=== PATIENT | female | born 1955 | race Caucasian/White ===

== ENCOUNTER 2021-01-29 15:51 | Emergency (ER) | payer MEDICARE, SELFPAY ==
--- NOTE | 2021-01-29 15:54 | ED.DIZZY ---
HPI - Dizziness General Chief Complaint: Dizziness Stated Complaint: Dizziness Time Seen by Provider: 01/29/21 15:54 Related Data Allergies Allergy/AdvReac Type Severity Reaction Status Date / Time ciprofloxacin Allergy Unknown Nausea Verified 01/21/15 17:20 metronidazole Allergy Unknown Nausea Verified 01/21/15 17:20
--- NOTE | 2021-01-29 17:18 | PC.NURSE ---
1600 left immediately following registration without being seen by nurse/provider. nurse did not observe pt.
== END 2021-01-29 16:00 | disposition left against medical advice (07) ==
LOC: EXPBETH 16:02
PROVIDERS: Emergency Provider Nurse Practitioner Family; PCP Internal Medicine
DX: Z53.21 Procedure and treatment not carried out due to patient leaving prior to being seen by health care provider (principal)
CPT/HCPCS: 99199

== ENCOUNTER 2024-04-25 09:12 | Emergency (ER) | payer MEDICARE, MEDICAID, SELFPAY ==
--- NOTE | ~2024-04-25 | XR_ITS ---
EXAMINATION: XR chest 2V DATE: 04/25/2024 10:22 INDICATION: Cough TECHNIQUE: frontal and lateral views of the chest were obtained. COMPARISON: None FINDINGS: Mild linear discoid atelectasis at the medial left lung base and lateral left lower lung zone. Additi onal mild streaky opacities also favoring atelectasis over pneumonia at the lateral right lung base. No pleural effusion or pneumothorax. The cardiomediastinal silhouette is normal. Likely chronic mild anterior wedging at T11. Mild thoracolumbar dextrocurvature with moderate to severe spondylosis. IMPRESSION: 1. Mild linear and streaky opacities at the bilateral lower lungs and favor atelectasis over pneumoni a. Reviewed, dictated and finalized at location A. MATIC EMBROIDERY MACHINE TENDER IMPRESSION: 1. Mild linear and streaky opacities at the bilateral lower lungs and favor ate lectasis over pneumonia.
[2024-04-25 09:23] VITALS: BP 146/86; PULSE 71; RESP 18; TEMP 36.6; O2SAT 99
--- NOTE | 2024-04-25 10:09 | ED.GENADULT ---
HPI - General Adult General Chief complaint: Upper Respiratory Infection Stated complaint: Congestion/Chest Congestion/Cough Source: patient Mode of arrival: ambulatory Limitations: no limitations History of Present Illness HPI narrative: Patient presents for evaluation of sick symptoms for last 2 days. Symptoms include sinus congestion, productive cough of yellow/green sputum, shortness of breath, chills and diarrhea. No fever, vomiting, chest pain, sore throat, or otalgia. No recent sick contacts to her knowledge. She smokes 3/4 ppd. She has been taking Coricidin and Flonase for her symptoms. Related Data Home Medications Medication Instructions Recorded Confirmed atorvastatin 40 mg tablet 40 mg PO DAILY 04/25/24 04/25/24 clonidine HCl 0.1 mg tablet 0.1 mg PO DAILY 04/25/24 04/25/24 escitalopram oxalate 10 mg tablet 10 mg PO DAILY 04/25/24 04/25/24 levothyroxine 125 mcg tablet 125 mcg PO DAILY 04/25/24 04/25/24 lisinopril 20 mg tablet 20 mg PO DAILY 04/25/24 04/25/24 verapamil 120 mg tablet 120 mg PO DAILY 04/25/24 04/25/24 Allergies Allergy/AdvReac Type Severity Reaction Status Date / Time ciprofloxacin Allergy Unknown Nausea Verified 04/25/24 10:04 metronidazole Allergy Unknown Nausea Verified 04/25/24 10:04 Review of Systems Review of Systems: CONSTITUTIONAL: Reports chills. Denies fever EYES: Denies visual changes, redness, or discharge. ENT: Reports sinus congestion clear rhinorrhea. Denies sore throat. CARDIOVASCULAR: Denies chest pain, palpitations, or edema. RESPIRATORY: Reports cough and shortness of breath. GASTROINTESTINAL: Reports diarrhea. Denies abdominal pain, nausea, or vomiting GENITOURINARY: Denies dysuria or hematuria. SKIN: Denies rash or itching. MUSCULOSKELETAL: Denies back pain, joint pain, or myalgia. NEUROLOGIC: Denies headache, numbness, dizziness, or weakness. PSYCHIATRIC: Denies anxiety or depression. [facility] Past Medical History Medical History Anxiety Hyperlipidemia Hypertension Surgical History Surgical History No pertinent past surgical history Family History Family History Mother Family history unknown Social History Social History Smoking packs per day: 0.75 Smoking cigarettes per day: 15.0 Smoking status: Current every day smoker Tobacco type: cigarettes Substance use: never Living arrangements: alone Gender identity (if verbalized by the patient): Female Spiritual care concerns: No Exam Narrative: GENERAL: Well-appearing, well-nourished, and in no acute distress. HEAD: Normocephalic, atraumatic. EYES: PERRLA and EOMI. ENT: Nares clear, no rhinorrhea or epistaxis. Mucous membranes moist. Oropharynx without tonsillar hypertrophy exudate or other lesions. Bilateral TMs pearly olivares nonbulging NECK: Supple. No adenopathy or masses. No carotid bruits or JVD CHEST: Rales and wheezing present on exam. Cough present. Breathing pattern is nonlabored. HEART: Regular rate and rhythm. No murmur heard. Normal peripheral pulses. ABDOMEN: Soft, nontender, nondistended, normal active bowel sounds. EXTREMITIES: Normal range of motion. No edema. SKIN: Warm, dry, no rash. NEURO: No focal deficits. Alert and oriented x3. PSYCH: Normal mood and affect. Course Course Emergency Course: This is a 69 year old female who presented for evaluation of respiratory symptoms. Chest x-ray concerning for pneumonia. She is a current every day smoker. Will discharge with azithromycin, Augmentin, prednisone and albuterol. Dextromethorphan should help with cough. Follow-up with primary provider. Advised on smoking cessation. Go to the ER for worsening symptoms. Patient in agreement with plan of care. Level of Care: Express Care Visit Vital Signs Vital signs: Vital Signs Temperature 36.6 C 04/25/24 09:23 Pulse Rate 71 04/25/24 09:23 Respiratory Rate 18 04/25/24 09:23 Blood Pressure 146/86 H 04/25/24 09:23 Pulse Oximetry 99 04/25/24 09:23 Oxygen Delivery Room Air 04/25/24 09:23 Temperature 36.6 C 04/25/24 09:23 Pulse Rate 71 04/25/24 09:23 Respiratory Rate 18 04/25/24 09:23 Blood Pressure 146/86 H 04/25/24 09:23 Pulse Oximetry 99 04/25/24 09:23 Oxygen Delivery Room Air 04/25/24 09:23 Medical Decision Making Vital Signs Vital Signs: Vital Signs Temperature 36.6 C 04/25/24 09:23 Pulse Rate 71 04/25/24 09:23 Respiratory Rate 18 04/25/24 09:23 Blood Pressure 146/86 H 04/25/24 09:23 Pulse Oximetry 99 04/25/24 09:23 Oxygen Delivery Room Air 04/25/24 09:23 Temperature 36.6 C 04/25/24 09:23 Pulse Rate 71 04/25/24 09:23 Respiratory Rate 18 04/25/24 09:23 Blood Pressure 146/86 H 04/25/24 09:23 Pulse Oximetry 99 04/25/24 09:23 Oxygen Delivery Room Air 04/25/24 09:23 Lab Data Labs: Lab Results 04/25/24 Range/Units 10:26 POC Influenza A Ag Negative (Negative) POC Influenza B Ag Negative (Negative) POC SARS CoV-2 Ag Negative (Negative) Imaging Data Radiologist's impression: EXAMINATION: XR chest 2V DATE: 04/25/2024 10:22 INDICATION: Cough TECHNIQUE: frontal and lateral views of the chest were obtained. COMPARISON: None FINDINGS: Mild linear discoid atelectasis at the medial left lung base and lateral left lower lung zone. Additional mild streaky opacities also favoring atelectasis over pneumonia at the lateral right lung base. No pleural effusion or pneumothorax. The cardiomediastinal silhouette is normal. Likely chronic mild anterior wedging at T11. Mild thoracolumbar dextrocurvature with moderate to severe spondylosis. IMPRESSION: 1. Mild linear and streaky opacities at the bilateral lower lungs and favor atelectasis over pneumonia. Discharge Plan Discharge Clinical Impression: Community acquired pneumonia Patient Disposition: Home, Self-Care Condition: Stable Instructions: Antibiotic Form, Community Acquired Pneumonia (ED) Additional Instructions: MAKE SURE TO STAY WELL HYDRATE DEXTROMETHORPHAN(DELSYM) SHOULD HELP WITH COUGH PLEASE DO NOT SMOKE IF YOU HAVE PERSISTENT OR WORSENING SYMPTOMS, PLEASE GO TO THE ER Patient Language: Estonian Prescriptions: New amoxicillin-pot clavulanate 875-125 mg tablet 1 tablet PO Q12H Qty: 20 0RF azithromycin 250 mg tablet See Rx Instructions .ROUTE .COMPLEX Qty: 6 0RF Rx Instructions: For 250 mg dose pack: take 500 mg today (day 1), then 250 mg for 4 days (days 2-5) prednisone 50 mg tablet 50 mg PO DAILY Qty: 5 0RF albuterol sulfate 90 mcg/actuation HFA aerosol inhaler 2 puff inhalation QID PRN (Reason: shortness of breath or wheezing) Qty: 8.5 0RF No Action levothyroxine 125 mcg tablet 125 mcg PO DAILY verapamil 120 mg tablet 120 mg PO DAILY atorvastatin 40 mg tablet 40 mg PO DAILY clonidine HCl 0.1 mg tablet 0.1 mg PO DAILY lisinopril 20 mg tablet 20 mg PO DAILY escitalopram oxalate 10 mg tablet 10 mg PO DAILY Follow-up/Referrals: Kayla,Devonte Miller MD [Primary Care Provider] - Time of Disposition: 10:39
[2024-04-25 10:27] LABS: EDCOVIDSCREEN Negative (Negative); EDINFLUASCREEN Negative (Negative); EDINFLUBSCREEN Negative (Negative)
== END 2024-04-25 10:42 | disposition home or self-care (01) ==
PROVIDERS: Emergency Provider Nurse Practitioner; PCP Internal Medicine
DX: J18.9 Pneumonia, unspecified organism (principal); Z20.822 Contact with and (suspected) exposure to COVID-19; F17.210 Nicotine dependence, cigarettes, uncomplicated; I10 Essential (primary) hypertension; E78.5 Hyperlipidemia, unspecified; F41.9 Anxiety disorder, unspecified
CPT/HCPCS: 71046; 87426; 87804; 99213; G0463

== ENCOUNTER 2025-02-09 12:46 | Emergency (ER) | payer MEDICARE, MEDICAID, SELFPAY ==
[2025-02-09 12:50] VITALS: BP 96/68; PULSE 79; RESP 18; TEMP 36.9; O2SAT 98
--- NOTE | 2025-02-09 13:02 | ED.BACK ---
HPI - Back Pain/Injury General Chief Complaint: Back Pain/Injury Stated Complaint: Back Pain Time Seen by Provider: 02/09/25 12:50 Source: patient Mode of arrival: ambulatory Limitations: no limitations History of Present Illness HPI Narrative: 69 y/o female presented for c/o left lower back pain. Onset 2 days. Says pain is much better today than yesterday. Says she may have pulled a muscle but denies known injury. Has applied heat/cold and used massage chair. Denies pain radiating into the hips or legs, numbness, tingling, weakness of the lower extremities, or change in gait, saddle paresthesia or loss of bowel or bladder. Related Data Home Medications ?Medication ?Instructions ?Recorded ?Confirmed ?Last Taken ?Type atorvastatin 40 mg tablet 40 mg PO DAILY 04/25/24 04/25/24 Unknown History clonidine HCl 0.1 mg tablet 0.1 mg PO DAILY 04/25/24 04/25/24 Unknown History escitalopram oxalate 10 mg tablet 10 mg PO DAILY 04/25/24 04/25/24 Unknown History levothyroxine 125 mcg tablet 125 mcg PO DAILY 04/25/24 04/25/24 Unknown History lisinopril 20 mg tablet 20 mg PO DAILY 04/25/24 04/25/24 Unknown History verapamil 120 mg tablet 120 mg PO DAILY 04/25/24 04/25/24 Unknown History fluticasone propionate 50 intranasal 02/09/25 Unknown History mcg/actuation nasal spray,suspension Allergies Allergy/AdvReac Type Severity Reaction Status Date / Time ciprofloxacin Allergy Unknown Nausea Verified 02/09/25 12:47 metronidazole Allergy Unknown Nausea Verified 02/09/25 12:47 Review of Systems Review of Systems: CONSTITUTIONAL: Denies body aches, fever, chills EYES: Denies visual changes CARDIOVASCULAR: Denies chest pain, palpitations, or edema. RESPIRATORY: Denies cough or dyspnea. GASTROINTESTINAL: Denies abdominal pain, nausea, vomiting, or diarrhea. SKIN: Denies rash or wounds. MUSCULOSKELETAL: reports back pain NEUROLOGIC: Denies headache, numbness, tingling, or weakness. All systems reviewed & are unremarkable except as noted in HPI and below PMFSH Past Medical History Medical History Anxiety Hyperlipidemia Hypertension Surgical History Surgical History No pertinent past surgical history Family History Family History Mother Family history unknown Social History Social History Smoking packs per day: 0.75 Smoking cigarettes per day: 15.0 Smoking status: Current every day smoker Tobacco type: cigarettes Substance use: never Living arrangements: alone Gender identity (if verbalized by the patient): Female Spiritual care concerns: No Comments At time of signature, I have reviewed and agree with nursing past medical, surgical, social and family history unless otherwise noted. Please see nursing chart for further information. There is no relevant family history pertinent to the presenting complaint Exam Narrative: GENERAL: Well-appearing CHEST: Speaks in full sentences. No respiratory distress. HEART: Regular rate and rhythm. Normal and equal peripheral pulses. MUSC: No Vertebral point tenderness. BLEs with normal strength and sensation, normal range of motion. No ecchymosis, rash or open wounds. pulse palpable and equal bilaterally, skin warm, dry, pink. Capillary refill less than 3 seconds. Gait steady. SKIN: Warm, dry, no rash. NEURO: Alert and oriented x3. Course Course Emergency Course: Patient is aware of diagnosis, understands and agrees to treatment plan. Anticipatory guidance given. Patient agrees to follow-up as directed and is aware of reasons to seek care at the emergency department. Portions of this record may have been created with voice recognition software Level of Care: Express Care Visit Vital Signs Vital signs: Vital Signs Temperature 98.5 F 02/09/25 12:50 Pulse Rate 79 02/09/25 12:50 Respiratory Rate 18 02/09/25 12:50 Blood Pressure 96/68 L 02/09/25 12:50 Pulse Oximetry 98 02/09/25 12:50 Oxygen Delivery Room Air 02/09/25 12:50 Temperature 98.5 F 02/09/25 12:50 Pulse Rate 79 02/09/25 12:50 Respiratory Rate 18 02/09/25 12:50 Blood Pressure 96/68 L 02/09/25 12:50 Pulse Oximetry 98 02/09/25 12:50 Oxygen Delivery Room Air 02/09/25 12:50 Reviewed MDM - Back Pain/Injury MDM Narrative Medical decision making narrative: Discussed physical exam findings. Advised supportive measures and signs/symptoms to go to the ER. Pt is appropriate for outpt treatment and f/u. Differential Diagnosis Differential diagnosis: Likely lumbar radiculopathy, sciatica, strain of lumbar region and discitis Discharge Plan Discharge Clinical Impression: Strain of lumbar region Patient Disposition: Home Condition: Stable Instructions: Antibiotic Form, Acute Low Back Pain (ED) Additional Instructions: Avoid lifting. pushing. pulling, or anything that worsens the pain. Walking and other gentle exercising several times a week has been shown to improve back pain; bed rest is not recommended. Take Motrin 800mg every 6-8 hours with food for the next 2-3 days, along with Tylenol 1000mg every 8 hours Over the counter pain cream like icy/hot or biofreeze, or Salon pas/lidocaine 4% patch. You may apply heat or cold to the area as needed. Please follow up with your Primary Care Doctor within 72 hours - call for an appointment. Go to the ER If you experience any worsening pain, swelling, numbness, weakness, problems with bladder or bowel function, weakness or loss of feeling in one or both of your legs, or any other serious concerns. Patient Language: Pashto Prescriptions: New ibuprofen 800 mg tablet 800 mg PO TID PRN (Reason: pain) Qty: 15 0RF No Action levothyroxine 125 mcg tablet 125 mcg PO DAILY verapamil 120 mg tablet 120 mg PO DAILY atorvastatin 40 mg tablet 40 mg PO DAILY clonidine HCl 0.1 mg tablet 0.1 mg PO DAILY lisinopril 20 mg tablet 20 mg PO DAILY escitalopram oxalate 10 mg tablet 10 mg PO DAILY fluticasone propionate 50 mcg/actuation spray,suspension INTRANASAL Follow-up/Referrals: Kayla,Devonte Miller MD [Primary Care Provider, Unknown] Time of Disposition: 13:04
--- OUTSIDE RECORDS SUMMARY | 2025-02-09 13:21 | XMS_ITS | Encounter Summary ---
Author Organization [facility] Address [address] [place] [address] Phone Care Team Providers Care Cable Systems Installer Name Role Phone Devonte Garza MD Primary Care Provider [phone] Patricio Howard MD Unavailable Jessica Palacios APRN, WIND TURBINE MECHANICAL ENGINEER Unavailable [phone] Nila Richards MD Unavailable Reason for Visit * Reason Comments Medication Refill Encounter Details Date Type Department Care Team (Late Contact Info) Description 09/29/2020 Refill [facility] - Primary Care - [place] [address] [place] [address] Dorothea Bedolla APRN, WIND TURBINE MECHANICAL ENGINEER [address] [place] [address] Medication Refill Social History Tobacco Use Types Packs/Day Years Used Date Smoking Tobacco: Every Day Cigarettes 0.5 45 Smokeless Tobacco: Never Comments:5 cigarettes a day Alcohol Use Standard Drinks/Week Comments Not Currently 0 (1 standard drink = 0.6 oz pur e alcohol) PHQ-2 Answer Date Recorded Total Score - Questions 1-9 0 05/02 Sexually Active Control Partners Comments Yes Post-menopausal Male Comments No Sex and Gender Information Value Date Recorded Sex Assigned at Not on file Legal Sex Female 12:30 AM CDT Gender Identity Not on file Sexual Orientation Not on file 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 No / Unsure 09/12/2020 9:36 AM CDT documented as of this encounter Plan of Treatment Upcoming Encounters Date Type Department Care Team (Late st Contact Info) Description 09/13/2025 10:30 AM CDT Office Visit [facility] - Primary Care - [place] [address] [place] [address] Devonte Garza MD [address] [place] [address] documented as of this encounter Visit Diagnoses Not on filedocumented in this encounter Additional Health Concerns Infection Onset Date Last Indicated Resolved Time COVID - 19 01/30/2021 01/30/2021 01/30/2021 11:4 2 AM CDT COVID - 19 01/30/2021 01/30/2021 02/19/2021 12:1 6 AM CDT COVID - 19 Confirmed 01/30/2021 01/30/2021 021 12:16 AM CDT COVID - 19 02/28/2022 02/28/2022 03/10/2022 12:1 6 AM CDT COVID - 19 04/23/2022 04/23/2022 05/03/2022 12:1 9 AM WIRE WEAVER HELPER Assessment Noted Time PHQ-9 Depression Total Score: 0 05/15/20 20 9:00 AM WIRE WEAVER HELPER documented as of this encounter Care Teams Cable Systems Installer Relationship Specialty Start Date End Date Devonte Garza MD [address] [place] [address] PCP - General Internal Medicine 06/01/18 Patricio Howard MD [address] [place] [address] Consulting Physician Vascular Surgery 06/01/18 Jessica Palacios, PHYSICAL THERAPY SUPERVISOR, WIND TURBINE MECHANICAL ENGINEER [address] [place] [address] Consulting Physician Obstetrics & Gynecology 05/15/20 Nila Richards MD 2 [facility] [address] [address] Consulting Physician Cardiovascular Disease - Cardiology 07/08/22 documented as of this encounter
--- OUTSIDE RECORDS SUMMARY | 2025-02-09 13:21 | XMS_ITS | Encounter Summary ---
Author Organization [facility] Address [address] [place] [address] Phone Care Team Providers Care High School Football Coach Name Role Phone Devonte Garza MD Primary Care Provider [phone] Patricio Howard MD Unavailable Jessica Palacios APRN, SKIMMER Unavailable Nila Richards MD Unavailable [phone] Reason for Visit * Reason Comments Medication Refill Encounter Details Date Type Department Care Team (Late Contact Info) Description 07/15/2021 Refill [facility] - Primary Care - [place] [address] [place] [address] Devonte Garza MD [address] [place] [address] Medication Refill Social History Tobacco Use Types Packs/Day Years Used Date Smoking Tobacco: Every Day Cigarettes 0.5 45 Smokeless Tobacco: Never Comments:5 cigarettes a day Alcohol Use Standard Drinks/Week Comments Yes 0 (1 standard drink = 0.6 oz pur e alcohol) 1x weekly; liquor PHQ-2 Answer Date Recorded Total Score - Questions 1-9 0 05/03 Sexually Active Control Partners Comments Yes Post-menopausal [...] have Coronavirus / COVID-19? No / Unsure 07/03/2021 10:59 AM WIRE WINDING MACHINE TENDER documented as of this encounter Miscellaneous Notes * Telephone Encounter - Arcelia Leblanc RN - 07/16/2021 11:22 AM WIRE WINDING MACHINE TENDER Refill requested too soon. WINDING MACHINE TENDER documented in this encounter Plan of Treatment Upcoming Encounters Date Type Department Care Team (Late st Contact Info) Description 09/13/2025 10:30 AM CDT Office Visit [facility] - Primary Care - [place] [address] [place] [address] Devonte Garza MD [address] [place] [address] documented as of this encounter Visit Diagnoses Not on filedocumented in this encounter Additional Health Concerns Infection Onset Date Last Indicated Resolved Time COVID - 19 02/28/2022 02/28/2022 03/10/2022 12:1 6 AM CDT COVID - 19 04/23/2022 04/23/2022 05/03/2022 12:1 9 AM WIRE WINDING MACHINE TENDER Assessment Noted Time PHQ-9 Depression Total Score: 0 05/15/20 20 9:00 AM WIRE WINDING MACHINE TENDER documented as of this encounter Care Teams High School Football Coach Relationship Specialty Start Date End Date Devonte Garza MD [address] [place] [address] PCP - General Internal Medicine 06/01/18 Patricio Howard MD [address] [place] [id number] Consulting Physician Vascular Surgery 06/01/18 Jessica Palacios, LABORER, SKIMMER [address] [place] [address] Consulting Physician Obstetrics & Gynecology 05/15/20 Nila Richards MD [address] [place] [address] [address] Consulting Physician Cardiovascular Disease - Cardiology 07/08/22 documented as of this encounter
--- OUTSIDE RECORDS SUMMARY | 2025-02-09 13:21 | XMS_ITS | Encounter Summary ---
Author Organization [facility] Address [address] [place] [address] Phone Care Team Providers Care Leather Grader Name Role Phone Devonte Garza MD Primary Care Provider [phone] Patricio Howard MD Unavailable Jessica Palacios APRN, EMERGENCY OPERATOR Unavailable [phone] Nila Richards MD Unavailable Reason for Visit * Reason Comments Medication Refill Encounter Details Date Type Department Care Team (Late Contact Info) Description 10/28/2021 Refill [facility] - Primary Care - [place] [address] [place] [address] Devonte Garza MD [address] [place] [address] Medication Refill Social History Tobacco [...] file Not on file Not on file documented as of this encounter Miscellaneous Notes * Telephone Encounter - Arcelia Leblanc RN - 10/30/2021 9:14 AM CDT Refill request too soon. documented in this encounter Plan of Treatment Upcoming Encounters Date Type Department Care Team (Late st Contact Info) Description 09/13/2025 10:30 AM CDT [facility] - Primary Care - [place] [address] [place] [address] Devonte Garza MD [address] [place] [address] documented as of this encounter Visit Diagnoses Not on filedocumented in this encounter Additional Health Concerns Infection Onset Date Last Indicated Resolved Time COVID - 19 02/28/2022 02/28/2022 03/10/2022 12:1 6 AM CDT COVID - 19 04/23/2022 04/23/2022 05/03/2022 12:1 9 AM EYELET MACHINE OPERATOR Assessment Noted Time PHQ-9 Depression Total Score: 0 05/15/20 20 9:00 AM EYELET MACHINE OPERATOR documented as of this encounter Care Teams Leather Grader Relationship Specialty Start Date End Date Devonte Garza MD [address] [place] [address] PCP - General Internal Medicine 06/01/18 Patricio Howard MD [address] [place] [id number] Consulting Physician Vascular Surgery 06/01/18 Jessica Palacios, TONE CABINET ASSEMBLER, EMERGENCY OPERATOR [address] [place] [address] Consulting Physician Obstetrics & Gynecology 05/15/20 Nila Richards MD [address] [facility] [address] [place] [address] [place] [address] Consulting Physician Cardiovascular Disease - Cardiology 07/08/22 documented as of this encounter
--- OUTSIDE RECORDS SUMMARY | 2025-02-09 13:21 | XMS_ITS | Encounter Summary ---
Author Organization [facility] Address [address] [place] [address] Phone Care Team Providers Care Head Of Sales And Marketing Name Role Phone Devonte Garza MD Primary Care Provider [phone] Patricio Howard MD Unavailable Jessica Palacios APRN, OFFICE CLERK Unavailable [phone] Nila Richards MD Unavailable [phone] Reason for Visit * Reason Comments Medication Refill Encounter Details Date Type Department Care Team ([facility] Contact Info) Description 06/09/2020 Refill [facility] - Primary Care - [place] [address] [place] [address] Devonte Garza MD [address] [place] [address] Medication Refill Social History Tobacco [...] have Coronavirus / COVID-19? No / Unsure 05/15/2020 8:56 AM EMPLOYEE SERVICE OFFICER documented as of this encounter Miscellaneous Notes * Telephone Encounter - Tran Nguyen RN - 06/09/2020 8:41 AM EMPLOYEE SERVICE OFFICER Medication approved and signed per standing order protocol. OYEE SERVICE OFFICER * Telephone Encounter - Umu Taveras CMA - 06/09/2020 8:35 AM CST Rerouting OYEE SERVICE OFFICER documented in this encounter Plan of Treatment Upcoming Encounters Date Type Department Care Team (Late st Contact Info) Description 09/13/2025 10:30 AM CDT Office Visit [facility] - Primary Care - [place] [address] [place] [id number] Devonte Garza MD [address] [place] [address] documented as of this encounter Visit Diagnoses [...] 19 04/23/2022 04/23/2022 05/03/2022 12:1 9 AM EMPLOYEE SERVICE OFFICER Assessment Noted Time PHQ-9 Depression Total Score: 0 05/15/20 20 9:00 AM EMPLOYEE SERVICE OFFICER documented as of this encounter Care Teams Head Of Sales And Marketing Relationship Specialty Start Date End Date Devonte Garza MD [address] [place] [address] PCP - General Internal Medicine 06/01/18 Patricio Howard MD [address] [place] [phone] Consulting Physician Vascular Surgery 06/01/18 Jessica Palacios, CHICKEN HATCHERY HELPER, OFFICE CLERK [address] [place] [address] Consulting Physician Obstetrics & Gynecology 05/15/20 Nila Richards MD [address] [facility] [place] [address] Consulting Physician Cardiovascular Disease - Cardiology 07/08/22 documented as of this encounter
--- OUTSIDE RECORDS SUMMARY | 2025-02-09 13:21 | XMS_ITS | Encounter Summary ---
Author Organization [facility] Address [address] [place] [address] Phone Care Team Providers Care Hot Roller Name Role Phone Devonte Garza MD Primary Care Provider [phone] Patricio Howard MD Unavailable Jessica Palacios APRN, GROUP THERAPIST Unavailable [phone] Nila Richards MD Unavailable [phone] Reason for Visit * Reason Comments Medication Refill Encounter Details Date Type Department Care Team ([facility] Contact Info) Description 06/12/2021 Refill [facility] - Primary Care - [place] [address] [place] [address] Rox Pantoja MD [address] [place] [address] Medication Refill Social History Tobacco [...] have Coronavirus / COVID-19? No / Unsure 06/07/2021 9:29 AM SURGICAL TECHNICIAN documented as of this encounter Miscellaneous Notes * Telephone Encounter - Tran Nguyen RN - 06/12/2021 10:46 AM SURGICAL TECHNICIAN D/c'd on 05/28/21 by pcp. ICAL TECHNICIAN documented in this encounter Plan of Treatment Upcoming Encounters Date Type Department Care Team (Late st Contact Info) Description 09/13/2025 10:30 AM CDT Office Visit [facility] - Primary Care - [place] [address] [place] [address] Devonte Garza MD [address] [place] [address] documented as of this encounter Visit Diagnoses Diagnosis SOB (shortness of breath) Shortness of breath documented in this encounter Additional Health Concerns Infection Onset Date Last Indicated Resolved Time COVID - 19 02/28/2022 02/28/2022 03/10/2022 12:1 6 AM CDT COVID - 19 04/23/2022 04/23/2022 05/03/2022 12:1 9 AM SURGICAL TECHNICIAN Assessment Noted Time PHQ-9 Depression Total Score: 0 05/15/20 20 9:00 AM SURGICAL TECHNICIAN documented as of this encounter Care Teams Hot Roller Relationship Specialty Start Date End Date Devonte Garza MD [address] [place] [address] PCP - General Internal Medicine 06/01/18 Patricio Howard MD [address] [place] [address] Consulting Physician Vascular Surgery 06/01/18 Jessica Palacios APRN, GROUP THERAPIST [address] [place] [address] Consulting Physician Obstetrics & Gynecology 05/15/20 Nila Richards MD [address] [place] [address] [address] Consulting Physician Cardiovascular Disease - Cardiology 07/08/22 documented as of this encounter
--- OUTSIDE RECORDS SUMMARY | 2025-02-09 13:21 | XMS_ITS | Encounter Summary ---
Author Organization [facility] Address [address] [place] [address] Phone Care Team Providers Care Certified Surgical First Assistant Name Role Phone Devonte Garza MD Primary Care Provider [phone] Patricio Howard MD Unavailable Jessica Palacios APRN, SUPERVISOR TRAVEL TRAILER Unavailable [phone] Nila Richards MD Unavailable Reason for Visit * Reason Comments Medication Refill Encounter Details Date Type Department Care Team (Late Contact Info) Description 08/04/2023 Refill [facility] - Primary Care - [place] [address] [place] [address] Devonte Garza MD [address] [place] [address] Medication Refill Social History Tobacco Use Types Packs/Day Years Used Date Smoking Tobacco: Every Day Cigarettes 0.5 45 Smokeless Tobacco: Never Alcohol Use Standard Drinks/Week Comments Not Currently 0 (1 standard drink = 0.6 oz pur e alcohol) 1x weekly; liquor PHQ-2 Answer Date Recorded Total Score - Questions 1-9 0 03/0 11/2023 Sexually Active Control Partners Comments Yes Post-menopausal Male Comments No Sex and Gender Information Value Date Recorded Sex Assigned at Not on file Legal Sex Female 12:30 AM CDT Gender Identity Not on file Sexual Orientation Not on file 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 Question Answer Date of Assessment Author Patient Health Questionnaire -2 Score 0 08/06/2023 11:08 AM UPPER CUTTER OUT Genna Obrien CMA documented as of this encounter Miscellaneous Notes * Telephone Encounter - En Gordon RN - 08/04/2023 11:40 AM CST Pt has sasha on 08/06/23. Will address then R CUTTER OUT documented in this encounter Plan of Treatment Upcoming Encounters Date Type Department Care Team (Late st Contact Info) Description 09/13/2025 10:30 AM CDT Office Visit [facility] - Primary Care - [place] [address] [place] [address] Devonte Garza MD [address] [place] [address] documented as of this encounter Visit Diagnoses Diagnosis Anxiety and depression Dysthymic disorder documented in this encounter Additional Health Concerns Assessment Noted Time PHQ-9 Depression Total Score: 0 05/15/20 20 9:00 AM UPPER CUTTER OUT documented as of this encounter Care Teams Certified Surgical First Assistant Relationship Specialty Start Date End Date Devonte Garza MD [address] [place] [address] PCP - General Internal Medicine 06/01/18 Patricio Howard MD [address] [place] [address] Consulting Physician Vascular Surgery 06/01/18 Jessica Palacios APRN, SUPERVISOR TRAVEL TRAILER [address] [place] [address] Consulting Physician Obstetrics & Gynecology 05/15/20 Nila Richards MD [address] [place] [address] [address] Consulting Physician Cardiovascular Disease - Cardiology 07/08/22 documented as of this encounter
--- OUTSIDE RECORDS SUMMARY | 2025-02-09 13:21 | XMS_ITS | Encounter Summary ---
Author Organization [facility] Address [address] [place] [address] Phone Care Team Providers Care Countersinker Name Role Phone Devonte Garza MD Primary Care Provider [phone] Patricio Howard MD Unavailable Jessica Palacios APRN, AUTHORIZER Unavailable [phone] Nila Richards MD Unavailable Reason for Visit * Reason Comments Medication Refill Encounter Details Date Type Department Care Team (Late Contact Info) Description 02/29/2020 [facility] [address] [place] [address] Devonte Garza MD [address] [place] [address] Medication Refill Social History Tobacco Use Types Packs/Day Years Used Date Smoking Tobacco: Every Day Cigarettes 0.5 45 Smokeless Tobacco: Never Comments:5 cigarettes a day Alcohol Use Standard Drinks/Week Comments Not Currently 0 (1 standard drink = 0.6 oz pur e alcohol) PHQ-2 Answer Date Recorded PHQ-2 Score 0 02/05/2019 Sexually Active Control Partners Comments Yes Post-menopausal Male Comments No Sex and Gender Information Value Date Recorded Sex Assigned at Not on file Legal Sex Female 12:30 AM CDT Gender Identity Not on file Sexual Orientation Not on file Occupation Industry Job Start Date Job End Date [employer] Not on file Not on file Not on file documented as of this encounter Miscellaneous Notes * Telephone Encounter - Devonte Garza MD - 03/01/2020 3:41 PM CDT Refill request approved. * Telephone Encounter - Lisandra Barahona - 03/01/2020 3:05 PM CDT Medication failed the protocol provider to review and approve the medication order. Requested Prescriptions Pending Prescriptions Disp Refills verapamil (CALAN,ISOPTIN) 120 MG Tablet [Pharmacy Med Name: VERAPAMIL 120 MG TABLET] 270 Tab 0 Sig: TAKE 1 TABLET BY MOUTH THREE TIMES A DAY Cardiovascular: Calcium Channel Blockers Failed - 02/29/2020 9:51 AM Failed - Last BP in normal range BP Readings from Last 1 Encounters: 07/16/19 141/78 Passed - Valid encounter within last 12 months Past Office Visits Recent Outpatient Visits 7 months ago Del[facility]id [facility], [facility] - Devonte Roberts MD 8 months ago Acute pain of right shoulder [facility] - Joce Zuñiga PAC 9 months ago Hypertension, essential [facility] - Devonte Roberts MD 10 months ago URI, acute [facility] - Devonte Roberts MD 1 year ago URI, acute [facility] - Devonte Roberts MD Upcoming Appointments Future Appointments In 2 months Devonte Garza MD [facility] Family Medicine - [place] [employer] COMPUTER SYSTEMS DESIGN ANALYST - Recent and Past Visits Recent Visits Date Type Provider Dept 07/16/19 Office Visit Devonte Garza MD [facility] 06/17/19 Office Visit Joce Duffy PAC [facility] [place] 05/11/19 Office Visit Devonte Garza MD [facility] 04/14/19 Office Visit Devonte Garza MD [facility] Showing recent visits within past 460 days with a meds authorizing provider and meeting all other requirements Future Appointments Date Type Provider Dept 05/15/20 Appointment Devonte Garza MD [facility] [address] Showing future appointments within next 90 days with a meds authorizing provider and meeting all other requirements documented in this encounter Plan of Treatment Upcoming Encounters Date Type Department Care Team (Late st Contact Info) Description 09/13/2025 10:30 AM CDT Office Visit [facility] - Primary Care - [place] [address] [place] [address] Devonte Garza MD [address] [place] [address] documented as of this encounter Visit Diagnoses [...] 19 04/23/2022 04/23/2022 05/03/2022 12:1 9 AM BRAIDER OPERATOR Assessment Noted Time PHQ-9 Depression Total Score: 0 07/17/19 19 1:00 PM BRAIDER OPERATOR documented as of this encounter Care Teams Countersinker Relationship Specialty Start Date End Date Devonte Garza MD [address] [place] [address] PCP - General Internal Medicine 06/01/18 Patricio Howard MD [address] [place] [address] Consulting Physician Vascular Surgery 06/01/18 Jessica Palacios APRN, AUTHORIZER [address] [place] [address] Consulting Physician Obstetrics & Gynecology 05/15/20 Nial Richards MD [address] [place] [address] [address] Consulting Physician Cardiovascular Disease - Cardiology 07/08/22 documented as of this encounter
--- OUTSIDE RECORDS SUMMARY | 2025-02-09 13:21 | XMS_ITS | Encounter Summary ---
Author Organization [facility] Address [address] [place] [address] Phone Care Team Providers Care Brazing Furnace Feeder Name Role Phone Devonte Garza MD Primary Care Provider [phone] Patricio Howard MD Unavailable Jessica Palacios APRN, ASSISTANT PRESS OPERATOR Unavailable Nila Richards MD Unavailable Reason for Visit * Reason Comments Medication Refill Encounter Details Date Type Department Care Team ([facility] Contact Info) Description 04/07/2021 Refill [facility] - Primary Care - [place] [address] [place] [address] Devonte Garza MD [address] [place] [address] Medication Refill Social History Tobacco [...] on file documented as of this encounter Plan of Treatment Upcoming Encounters Date Type Department Care Team (Late st Contact Info) Description 09/13/2025 10:30 AM CDT Office Visit [facility] - Primary Care - [place] [address] [place] [address] Devonte Garza MD [address] [place] [address] documented as of this encounter Visit Diagnoses Not on filedocumented in this encounter Additional Health Concerns Infection Onset Date Last Indicated Resolved Time COVID - 19 02/28/2022 02/28/2022 03/10/2022 12:1 6 AM CDT COVID - 19 04/23/2022 04/23/2022 05/03/2022 12:1 9 AM HEATING AND VENTILATING WORKER Assessment Noted Time PHQ-9 Depression Total Score: 0 05/15/20 9:00 AM HEATING AND VENTILATING WORKER documented as of this encounter Care Teams Brazing Furnace Feeder Relationship Specialty Start Date End Date Devonte Garza MD [address] [place] [address] PCP - General Internal Medicine 06/01/18 Patricio Howard MD [address] [place] [phone] Consulting Physician Vascular Surgery 06/01/18 Jessica Palacios, FINANCIAL OPERATIONS ANALYST, ASSISTANT PRESS OPERATOR [address] [place] [address] Consulting Physician Obstetrics & Gynecology 05/15/20 Nila Richards MD [address] [facility] [place] [address] (work) Consulting Physician Cardiovascular Disease - Cardiology 07/08/22 documented as of this encounter
--- OUTSIDE RECORDS SUMMARY | 2025-02-09 13:21 | XMS_ITS | Encounter Summary ---
Author Organization [facility] Address [address] [place] [address] Phone Care Team Providers Care Senior Tax Analyst Name Role Phone Devonte Garza MD Primary Care Provider [phone] Patricio Howard MD Unavailable Jessica Palacios APRN, COUNSELING CENTER DIRECTOR Unavailable [phone] Nila Richards MD Unavailable Reason for Visit * Reason Comments Medication Refill Encounter Details Date Type Department Care Team ([facility] Contact Info) Description 08/10/2021 Refill [facility] - Primary Care - [place] [address] [place] [address] Rox Pantoja MD [address] [place] [address] Medication Refill Social History Tobacco [...] Telephone Encounter - Tran Nguyen RN - 08/10/2021 11:20 AM GRAIN MILL PRODUCTS INSPECTOR Rx discontinued on 05/28/2021 N MILL PRODUCTS INSPECTOR documented in this encounter Plan of Treatment Upcoming Encounters Date Type Department Care Team (Late st Contact Info) Description 09/13/2025 10:30 AM CDT Office Visit [facility] - Primary Care - [place] [address] [place] [address] Devonte Garza MD [address] [place] [address] documented as of this encounter Visit Diagnoses Diagnosis SOB (shortness of breath) Shortness of breath documented in this encounter Additional Health Concerns Infection Onset Date Last Indicated Resolved Time COVID - 19 02/28/2022 02/28/2022 03/10/2022 12:1 6 AM CDT COVID - 19 04/23/2022 04/23/2022 05/03/2022 12:1 9 AM GRAIN MILL PRODUCTS INSPECTOR Assessment Noted Time PHQ-9 Depression Total Score: 0 05/15/20 9:00 AM GRAIN MILL PRODUCTS INSPECTOR documented as of this encounter Care Teams Senior Tax Analyst Relationship Specialty Start Date End Date Devonte Garza MD [address] [place] [address] PCP - General Internal Medicine 06/01/18 Patricio Howard MD [address] [place] [phone] Consulting Physician Vascular Surgery 06/01/18 Jessica Palacios, RETAIL LOAN OFFICER, COUNSELING CENTER DIRECTOR [address] [place] [address] Consulting Physician Obstetrics & Gynecology 05/15/20 Nila Richards MD [address] [facility] [address] [place] [address] Consulting Physician Cardiovascular Disease - Cardiology 07/08/22 documented as of this encounter
--- OUTSIDE RECORDS SUMMARY | 2025-02-09 13:21 | XMS_ITS | Encounter Summary ---
Author Organization [facility] Address [address] [place] [address] Phone Care Team Providers Care Lap Cutter Truer Operator Name Role Phone Devonte Garza MD Primary Care Provider [phone] Patricio Howard MD Unavailable Jessica Palacios APRN, WIRE COILER MACHINE OPERATOR Unavailable Nila Richards MD Unavailable Reason for Visit * Reason Comments Medication Refill Encounter Details Date Type Department Care Team (Late Contact Info) Description 05/07/2020 Refill [facility] [address] [place] [address] Devonte Garza MD [address] [place] [address] Medication Refill Social History Tobacco [...] have Coronavirus / COVID-19? No / Unsure 04/19/2020 11:00 AM CUTTING AND PRINTING MACHINE OPERATOR documented as of this encounter Miscellaneous Notes * Telephone Encounter - Devonte Garza MD - 05/08/2020 12:32 PM CUTTING AND PRINTING MACHINE OPERATOR Refill request approved. ING AND PRINTING MACHINE OPERATOR * Telephone Encounter - Umu Taveras [facility] - 05/08/2020 11:47 AM CUTTING AND PRINTING MACHINE OPERATOR Medication failed the protocol, provider to review and approve the medication order if appropriate. Requested Prescriptions Pending Prescriptions Disp Refills lisinopril (PRINIVIL, ZESTRIL) 20 MG Tablet [Pharmacy Med Name: LISINOPRIL 20 MG TABLET] 90 Tab 3 Sig: TAKE 1 TABLET BY MOUTH EVERY DAY Cardiovascular: GREG Inhibitors Passed - 05/07/2020 3:58 PM Passed - Valid encounter within last 12 months Past Office Visits Recent Outpatient Visits 2 weeks ago Abdominal aortic aneurysm without rupture (HCC) [facility] Joce Duffy PAC 9 months ago Deltoid bursitis, right [facility] - Devonte Roberts MD 10 months ago Acute pain of right shoulder [facility] Joce Duffy PAC 12 months ago Hypertension, essential [facility] [place] MD 1 year ago URI, acute [facility] [place] MD Upcoming Appointments Future Appointments In 1 week Devonte Garza MD [facility] BELT DRESSER - Recent and Past Visits Recent Visits Date Type Provider Dept 04/19/20 Office Visit Joce Duffy PAC [facility] 07/16/19 Office Visit Devonte Garza MD [facility] [place] 05/11/19 Office Visit Devonte Garza MD [facility] 04/14/19 Office Visit Devonte Garza MD [facility] [place] Showing recent visits within past 460 days with a meds authorizing provider and meeting all other requirements Future Appointments Date Type Provider Dept 05/15/20 Appointment Devonte Garza MD [facility] [address] Showing future appointments within next 90 days with a meds authorizing provider and meeting all other requirements Passed - Last BP in normal range BP Readings from Last 1 Encounters: 04/19/20 126/74 ING AND PRINTING MACHINE OPERATOR documented in this encounter Plan of Treatment Upcoming Encounters Date Type Department Care Team (Late st Contact Info) Description 09/13/2025 10:30 AM CDT Office Visit [facility] - Primary Care - [place] [address] [place] [address] Devonte Garza MD [address] [place] [address] documented as of this encounter Visit Diagnoses [...] 19 04/23/2022 04/23/2022 05/03/2022 12:1 9 AM CUTTING AND PRINTING MACHINE OPERATOR Assessment Noted Time PHQ-9 Depression Total Score: 0 07/17/19 19 1:00 PM CUTTING AND PRINTING MACHINE OPERATOR documented as of this encounter Care Teams Lap Cutter Truer Operator Relationship Specialty Start Date End Date Devonte Garza MD [address] [place] [address] PCP - General Internal Medicine 06/01/18 Patricio Howard MD [address] [place] [phone] Consulting Physician Vascular Surgery 06/01/18 Jessica Palacios LAND TITLE EXAMINER, WIRE COILER MACHINE OPERATOR [address] [place] [address] Consulting Physician Obstetrics & Gynecology 05/15/20 Nila Richards MD [address] [facility] [address] [place] [address] Consulting Physician Cardiovascular Disease - Cardiology 07/08/22 documented as of this encounter
--- OUTSIDE RECORDS SUMMARY | 2025-02-09 13:21 | XMS_ITS | Encounter Summary ---
Author Organization [facility] Address [address] [place] [address] Phone Care Team Providers Care Maintenance Planning Clerk Name Role Phone Devonte Garza MD Primary Care Provider [phone] Patricio Howard MD Unavailable Jessica Palacios APRN, ERGONOMICS ENGINEER Unavailable Nila Richards MD Unavailable [phone] Reason for Visit * Reason Comments Medication Refill Encounter Details Date Type Department Care Team (Late Contact Info) Description 08/06/2021 Refill [facility] - Primary Care - [place] [address] [place] [address] Rox Pantoja MD [address] [place] [address] Medication Refill Social History Tobacco [...] Telephone Encounter - Arcelia Leblanc RN - 08/06/2021 11:47 AM TELEVISION RECEIVER ANALYZER Refill request too soon. VISION RECEIVER ANALYZER documented in this encounter Plan of Treatment Upcoming Encounters Date Type Department Care Team (Late st Contact Info) Description 09/13/2025 10:30 AM CDT Office Visit [facility] - Primary Care - [place] [address] [place] [address] Devonte Garza MD [address] [place] [address] documented as of this encounter Visit Diagnoses Diagnosis URI with cough and congestion documented in this encounter Additional Health Concerns Infection Onset Date Last Indicated Resolved Time COVID - 19 02/28/2022 02/28/2022 03/10/2022 12:1 6 AM CDT COVID - 19 04/23/2022 04/23/2022 05/03/2022 12:1 9 AM TELEVISION RECEIVER ANALYZER Assessment Noted Time PHQ-9 Depression Total Score: 0 05/15/20 20 9:00 AM TELEVISION RECEIVER ANALYZER documented as of this encounter Care Teams Maintenance Planning Clerk Relationship Specialty Start Date End Date Devonte Garza MD [address] [place] [address] PCP - General Internal Medicine 06/01/18 Patricio Howard MD [address] [place] [phone] Consulting Physician Vascular Surgery 06/01/18 Jessica Palacios, BALLISTICS TEACHER, ERGONOMICS ENGINEER [address] [place] [address] Consulting Physician Obstetrics & Gynecology 05/15/20 Nila Richards MD [address] [facility] [address] [place] [address] Consulting Physician Cardiovascular Disease - Cardiology 07/08/22 documented as of this encounter
--- OUTSIDE RECORDS SUMMARY | 2025-02-09 13:21 | XMS_ITS | Encounter Summary ---
Author Organization [facility] Address [address] [place] [address] Phone Care Team Providers Care Physical Therapy Supervisor Name Role Phone Devonte Garza MD Primary Care Provider [phone] Patricio Howard MD Unavailable Jessica Palacios APRN, SCIENCE CONSULTANT Unavailable Nila Richards MD Unavailable [phone] Reason for Visit * Reason Comments Medication Refill Encounter Details Date Type Department Care Team (Late Contact Info) Description 08/10/2021 Refill [facility] - Primary Care - Mark [address] [place] [address] Devonte Garza MD [address] [place] [address] Medication Refill Social History Tobacco [...] Tran Nguyen RN - 08/10/2021 11:20 AM LABORER GOLF COURSE Medication approved and signed per standing order protocol. RER GOLF COURSE documented in this encounter Plan of Treatment Upcoming Encounters Date Type Department Care Team (Late st Contact Info) Description 09/13/2025 10:30 AM CDT Office Visit [facility] - Primary Care - [place] [address] [place] [address] Devonte Garza MD [address] [place] [address] documented as of this encounter Visit Diagnoses Not on filedocumented in this encounter Additional Health Concerns Infection Onset Date Last Indicated Resolved Time COVID - 19 02/28/2022 02/28/2022 03/10/2022 12:1 6 AM CDT COVID - 19 04/23/2022 04/23/2022 05/03/2022 12:1 9 AM LABORER GOLF COURSE Assessment Noted Time PHQ-9 Depression Total Score: 0 05/15/20 20 9:00 AM LABORER GOLF COURSE documented as of this encounter Care Teams Physical Therapy Supervisor Relationship Specialty Start Date End Date Devonte Garza MD [address] [place] [address] PCP - General Internal Medicine 06/01/18 Patricio Howard MD [address] [place] [id number] Consulting Physician Vascular Surgery 06/01/18 Jessica Palacios, FERMENTER HELPER, SCIENCE CONSULTANT [address] [place] [address] Consulting Physician Obstetrics & Gynecology 05/15/20 Nila Richards MD [address] [facility] [address] [place] [address] Consulting Physician Cardiovascular Disease - Cardiology 07/08/22 documented as of this encounter
--- OUTSIDE RECORDS SUMMARY | 2025-02-09 13:21 | XMS_ITS | Clinical Summary ---
Author Organization [facility] Address [address] [place] [address] Care Team Providers Care Day Trader Name Role Phone Moody Gold MD Primary Care Provider [phone] Source Comments [facility],non-[facility] health Affiliates and Associated Physician Practices is amultiple site organization consisting of ambulatory clinics and hospital sitesin [place], [place], [place] and [place]. This disclosure is being madepursuant to the Care Everywhere program and may not contain all information available regarding this patient. Last updated 18.[facility] Allergies Active Allergy Reactions Criticality Noted Date Comments Adhesive Sensitivity Rash Medium 09/08/2017 Hydrocodone-Acetaminophen Other,Rash Medium 09/11/2015 constipation, constipation, constipation Medications * Be aware that medications may not be up to date on this document. Alwaysverify current medications with the patient. cloNIDine (CATAPRES) 0.1 MG tablet Take 0.1 mg by mouth 3 times daily Active atorvastatin (LIPITOR) 40 MG tablet Take 40 mg by mouth at bedtime Active aspirin (ASPIRIN) 81 MG chew tablet Take 81 mg by mouth once daily Active verapamil CR (ISOPTIN-SR) 180 MG tablet Take 180 mg by mouth every 12 hours Active levothyroxine (SYNTHROID) 125 MCG tablet Take 125 mcg by mouth daily before breakfast Active losartan-hydroC HLOROthiazide (HYZAAR) 100-25 MG tablet Take 1 tablet by mouth once daily Active clonazePAM (KLONOPIN) 0.5 MG tablet Take 0.5 mg by mouth Active traZODone (DESYREL) 50 MG tablet Take 50 mg by mouth Active Active Problems Problem Noted Date Diagnosed Date Other specified postprocedural states 09/11/2015 Occlusion and stenosis of unspecified carotid ar mj 08/28/2015 Abdominal aortic aneurysm without rupture 2014 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 Family History Medical History Relation Name Comments Diabetes Brother Status: Alive Diabetes Father Status: d None Known Maternal Grandfather Status: None Known Maternal Grandmother Status: Thyroid Disease Mother 75 Status: Dece ased None Known Paternal Grandfather Status: None Known Paternal Grandmother Status: Diabetes Sister 1 Status: Alive Hypertension Sister 2 Thyroid Disease Sister 3 Thyroid Disease Sister 4 Status: Aliv e Hypertension Sister 5 Relation Name Status Comments Brother Father Maternal Grandfather Maternal Grandmother Mother 75 Paternal Grandfather Paternal Grandmother Sister 1 Sister 2 Sister 3 Sister 4 Sister 5 Social History Tobacco Use Types Packs/Day Years Used Date Smoking Tobacco: Former Cigarettes Q uit: 08/27/2015 Smokeless Tobacco: Never Alcohol Use Standard Drinks/Week Comments Yes 0 (1 standard drink = 0.6 oz pur e alcohol) Comments No Sex and Gender Information Value Date Recorded Sex Assigned at Not on file Legal Sex Female 5:36 PM VEHICLE BODY SANDER Gender Identity Not on file Sexual Orientation Not on file Last Filed Vital Signs Vital Sign Reading Time Taken Comments Blood Pressure 179/102 03/09/2018 2:32 PM CDT Pulse 69 03/09/2018 2:32 PM CDT Temperature 36.6 C (97.8 F) 03/09/2018 2:32 PM CDT Respiratory Rate 16 03/09/2018 2:32 PM CDT Oxygen Saturation 100% 03/09/2018 2:32 PM CDT Inhaled Oxygen Concentration - - Weight 69.9 kg (154 lb) 03/09/2018 2:32 PM CDT Height 167.6 cm (5' 6) 03/09/2018 2:32 PM CDT Body Mass Index 24.86 03/09/2018 2:32 PM CDT Plan of Treatment Health Maintenance Due Date Last Done Comments BONE DENSITY TESTING 1955 COLOGUARD (AGES 45-75) - COL ON CA SCREENING 1954 CT COLONOGRAPHY - COLON CA SCREENING 1955 FIT - COLON CA SCREENING 1955 FLEX SIG - COLON CA SCREENING 1955 MAMMOGRAM 1955 HEPATITIS C SCREENING 02/16/1972 DTAP/TDAP/TD VACCINES (1 - Tdap) 1973 PNEUMOCOCCAL VACCINE 50+ (1 of 1 - PCV) 02/21/2004 ZOSTER VACCINE (1 of 2) 02/21/2004 Respiratory Syncytial Virus (RSV) Vaccine Pt: or over 60 yrs (1 - Risk 60-74 years 1-dose series) 2014 DEPRESSION SCREENING 06/02/2024 COVID-19 VACCINE (1 - 2023-2 5 season) 2025 INFLUENZA VACCINE (#1) 2025 COLON MONITORING 12/10/2026 12/10/2016 COLONOSCOPY - COLON CA SCREENING 12/10/2026 12/11/19 17 Colorectal Cancer Screening 12/10/2026 HEPATITIS B VACCINE Aged Out No longe r eligible based on patient's age to complete this topic HIB VACCINE Aged Out No longer eligi ble based on patient's age to complete this topic HPV VACCINE Aged Out No longer eligi ble based on patient's age to complete this topic MENINGOCOCCAL (Group B) VACC INE SHARED DECISION-MAKING Aged Out No longer eligibl e based on patient's age to complete this topic MENINGOCOCCAL GROUPS A/C/Y/W VACCINE Aged Out No longer eligible b ased on patient's age to complete this topic Insurance [facility] MEDICARE MEDICAID - OUT OF STATE [facility] Care Teams Day Trader Relationship Specialty Start Date End Date Moody Gold MD [address] [place] [address] PCP - General 12/08/14
--- OUTSIDE RECORDS SUMMARY | 2025-02-09 13:21 | XMS_ITS | Encounter Summary ---
Author Organization [facility] Address [address] [place] [address] Phone Care Team Providers Care Stem Crusher Name Role Phone Devonte Garza MD Primary Care Provider [phone] Patricio Howard MD Unavailable Jessica Palacios APRN, MANAGER LOAN Unavailable [phone] Nila Richards MD Unavailable Reason for Visit * Reason Comments Medication Refill Encounter Details Date Type Department Care Team (Late Contact Info) Description 07/15/2021 Refill [facility] - Primary Care - [place] [address] [place] [address] Rox Pantoja MD [address] [place] [address] Medication Refill Social History Tobacco [...] COVID-19? No / Unsure 07/03/2021 10:59 AM ICE HOUSE SUPERVISOR documented as of this encounter Miscellaneous Notes * Telephone Encounter - Arcelia Leblanc RN - 07/16/2021 11:24 AM ICE HOUSE SUPERVISOR Medication discontinued 05/22/2021 by PCP. HOUSE SUPERVISOR documented in this encounter Plan of Treatment Upcoming Encounters Date Type Department Care Team (Late st Contact Info) Description 09/13/2025 10:30 AM CDT Office Visit [facility] - Primary Care - [place] [address] [place] [address] Devonte Garza MD [address] [place] [address] documented as of this encounter Visit Diagnoses Diagnosis SOB (shortness of breath) Shortness of breath documented in this encounter Additional Health Concerns Infection Onset Date Last Indicated Resolved Time COVID - 19 02/28/2022 02/28/2022 03/10/2022 12:1 6 AM CDT COVID - 19 04/23/2022 04/23/2022 05/03/2022 12:1 9 AM ICE HOUSE SUPERVISOR Assessment Noted Time PHQ-9 Depression Total Score: 0 05/15/20 20 9:00 AM ICE HOUSE SUPERVISOR documented as of this encounter Care Teams Stem Crusher Relationship Specialty Start Date End Date Devonte Garza MD [address] [place] [address] PCP - General Internal Medicine 06/01/18 Patricio Howard MD [address] [place] [address] Consulting Physician Vascular Surgery 06/01/18 Jessica Palacios APRN, MANAGER LOAN [address] [place] [address] Consulting Physician Obstetrics & Gynecology 05/15/20 Nila Richards MD [address] [place] [address] [address] Consulting Physician Cardiovascular Disease - Cardiology 07/08/22 documented as of this encounter
--- OUTSIDE RECORDS SUMMARY | 2025-02-09 13:21 | XMS_ITS | Encounter Summary ---
Author Organization [facility] Address [address] [place] [address] Phone Care Team Providers Care Quality Management Coordinator Name Role Phone Devonte Garza MD Primary Care Provider [phone] Patricio Howard MD Unavailable Jessica Palacios APRN, SANDWICH PEDDLER Unavailable Nila Richards MD Unavailable [phone] Reason for Visit * Reason Comments Medication Refill Encounter Details Date Type Department Care Team (Late Contact Info) Description 06/12/2020 [facility] [address] [place] [address] Devonte Garza MD [address] [place] [address] Medication Refill Social History Tobacco [...] COVID-19? No / Unsure 05/15/2020 8:56 AM INSULATION BOARD CALENDER OPERATOR documented as of this encounter Miscellaneous Notes * Telephone Encounter - Tran Nguyen RN - 06/12/2020 1:40 PM INSULATION BOARD CALENDER OPERATOR Medication approved and signed per standing order protocol. LATION BOARD CALENDER OPERATOR * Telephone Encounter - Umu Taveras CMA - 06/12/2020 1:38 PM CST Rerouting LATION BOARD CALENDER OPERATOR documented in this encounter Plan of Treatment Upcoming Encounters Date Type Department Care Team (Late st Contact Info) Description 09/13/2025 10:30 AM CDT Office Visit [facility] - Primary Care - [address] [place] [address] Devonte Garza MD [address] [place], [place] [id number] documented as of this encounter Visit Diagnoses [...] 19 04/23/2022 04/23/2022 05/03/2022 12:1 9 AM INSULATION BOARD CALENDER OPERATOR Assessment Noted Time PHQ-9 Depression Total Score: 0 05/15/20 9:00 AM INSULATION BOARD CALENDER OPERATOR documented as of this encounter Care Teams Quality Management Coordinator Relationship Specialty Start Date End Date Devonte Garza MD [address] [place] [address] PCP - General Internal Medicine 06/01/18 Patricio Howard MD [address] [place] [phone] Consulting Physician Vascular Surgery 06/01/18 Jessica Palacios, ZIGZAG MACHINE OPERATOR, SANDWICH PEDDLER [address] [place] [address] Consulting Physician Obstetrics & Gynecology 05/15/20 Nila Richards MD [address] [place] [address] [address] [place] [address] Consulting Physician Cardiovascular Disease - Cardiology 07/08/22 documented as of this encounter
--- OUTSIDE RECORDS SUMMARY | 2025-02-09 13:21 | XMS_ITS | Clinical Summary ---
Author Organization [facility] Address [address] [place] [address] Care Team Providers Care Butcher Assistant Name Role Phone Devonte Garza MD Primary Care Provider + Allergies Active Allergy Reactions Criticality Noted Date Comments Adhesive Tape-Silicones Medications atorvastatin (LIPITOR) 40 mg tablet Take 1 tablet (40 mg total) by mouth daily Active verapamiL (CALAN) 120 mg tablet Take 1 tablet (120 mg total) by mouth 3 (three) times a day Active aspirin 81 mg enteric coated tablet Take 1 tablet (81 mg total) by mouth daily Active cloNIDine (CATAPRES) 0.1 mg tablet Take 1 tablet (0.1 mg total) by mouth 3 (three) times a day Active levothyroxine (SYNTHROID) 125 mcg tablet Take 1 tablet (125 mcg total) by mouth missile control pilot before breakfast Active lisinopriL (PRINIVIL,ZESTR IL) 20 mg tablet Take 1 tablet (20 mg total) by mouth daily Active escitalopram (LEXAPRO) 10 mg tablet Take 1 tablet (10 mg total) by mouth daily Active hydroCHLOROthia zide (HYDRODIURIL) 25 mg tablet Take 25 mg by mouth daily Active naproxen (NAPROSYN) 500 mg tablet Take 1 tablet (500 mg total) by mouth 2 (two) times a day with meals 30 tablet 4 Active lidocaine (LIDODERM) 5 % Place 1 patch on the skin daily for 14 days Remove & discard patch within 12 hours or as directed by . 14 patch 09/01/202 4 Active Active Problems Problem Noted Date Diagnosed Date Abdominal aortic aneurysm (AAA) without rupture 01/22/2022 Smoking 01/22/2022 Essential hypertension 01/22/2022 Social History Tobacco Use Types Packs/Day Years Used Date Smoking Tobacco: Every Day Personal Safety Answer Date Recorded Have you ever been in or are you currently in a harmful physical or emotional relationship or is someone making you feel afraid or unsafe? Denies 02/01/2024 Comments Unknown Sex and Gender Information Value Date Recorded Sex Assigned at Not on file Legal Sex Female 3:38 AM YARN PACKER Gender Identity Not on file Sexual Orientation Not on file Obstetrics History Last Filed Vital Signs Vital Sign Reading Time Taken Comments Blood Pressure 114/84 02/01/2024 2:20 PM CDT Pulse 70 02/01/2024 2:20 PM CDT Temperature 36.2 C (97.1 F) 02/01/2024 2:20 PM CDT Respiratory Rate 18 02/01/2024 2:20 PM CDT Oxygen Saturation 100% 02/01/2024 2:20 PM CDT Inhaled Oxygen Concentration - - Weight 71.7 kg (158 lb) 02/01/2024 2:20 PM CDT Height 167.6 cm (5' 6) 02/01/2024 2:20 PM CDT Body Mass Index 25.5 02/01/2024 2:20 PM CDT Plan of Treatment Health Maintenance Due Date Last Done Comments Depression Screening 1955 Fall Risk Assessment 1955 Hepatitis C Screening 1955 Osteoporosis Screening-Bone Density Scan 1954 Pneumococcal vaccine 65+ (1 of 2 - PCV) 1973 Zoster Vaccine (1 of 2) 02/21/2004 Well Visit 65+ 2019 DTaP/Tdap/Td Vaccine (2 - Td or Tdap) 06/02/2020 06/02/2010 Breast Cancer Screening-Mammogram 10/08/2023 10/07/2022, 10/07/2022, 07/25/2020, Additional history exists Covid-19 Vaccine (2 - 2023-2 5 season) 2024 06/30/2020 Influenza Vaccine (#1) 2025 05/15/2020 Colon Cancer Screening-Colonoscopy 12/10/2026 12/10/2016 Hepatitis B Screening Completed 10/19/2013 Colon Cancer Screening-CT Colonography Discontinued 12/10/2016 Colon Cancer Screening-DNA Stool Discontinued 12/11/19 17 Colon Cancer Screening-FIT Discontinued 12/10/2016 Colon Cancer Screening-Sigmoidoscopy Discontinued 12/10/2016 Procedures Procedure Name Priority Date/Time Associated Diagnosis Comments COLONOSCOPY REPORT 12/10/2016 from Last 3 Months or Most Recently Relevant to Health Maintenance Results * COLONOSCOPY REPORT (12/10/2016) Anatomical Region Laterality Modality Other us Provider Scanning GI PROCEDURE ORDERABLES Final Result from Last 3 Months or Most Recently Relevant to Health Maintenance Insurance [employer] MEDICARE ADVANTAGE [id number] [place] [address] MEDICARE ADVANTAGE Care Teams Butcher Assistant Relationship Specialty Start Date End Date Devonte Garza MD [address] [place] [address] PCP - General Internal Medicine 01/01/22
--- OUTSIDE RECORDS SUMMARY | 2025-02-09 13:21 | XMS_ITS | Clinical Summary ---
Author Organization [facility] Address [address], [address] [place] [address] Phone Care Team Providers Care Jumbo Operator Name Role Phone Devonte Garza MD Primary Care Provider [phone] Patricio Howard MD Unavailable Jessica Palacios DIRECTOR OF PROVIDER RELATIONS, SUPERVISOR BRINE Unavailable Nila Richards MD Unavailable [phone] Allergies Active Allergy Reactions Criticality Noted Date Comments Cat Dander Itching,Swelling,Oth er (see Comments) High 05/25/2018 Itching and watery eye and swelling of the eyes Other Rash High 05/25/2018 ADHESIVE TAPE ---RASH -BLOTCH; ok to have paper tape Medications Aspirin 81 MG Tablet Take 81 mg by mouth every morning. Active atorvastatin (LIPITOR) 40 MG TabletIndications: Mixed hyperlipidemia TAKE 1 TABLET BY MOUTH EVERY DAY 90 Tablet 3 05/03/20 Active lisinopril (PRINIVIL, ZESTRIL) 20 MG TabletIndications: Hypertension, essential TAKE 1 TABLET BY MOUTH EVERY DAY 90 Tablet 3 05/20/20 24 Active Additional Information Patient taking differently:20 mg OralEVERY MORNING, Reported on 09/23/2024 fluticasone (FLONASE) 50 MCG/ACT Suspension SPRAY 1-2 SPRAYS IN EACH NOSTRIL EVERY DAY DIRECTED 48 mL 2 07/07/19 Active Additional Information Patient taking differently: PRN, Reported on 09/23/2024 escitalopram (LEXAPRO) 10 MG TabletIndications: Anxiety and depression TAKE 1 TABLET BY MOUTH EVERY DAY 90 Tablet 3 08/24/19 Active levothyroxine (SYNTHROID) 125 MCG TabletIndications: Hypothyroidism due to acquired atrophy of thyroid TAKE 1 TABLET BY MOUTH EVERY DAY 90 Tablet 3 08/24/19 Active verapamil (CALAN,ISOPTIN) 120 MG TabletIndications: Hypertension, essential TAKE 1 TABLET BY MOUTH THREE TIMES A DAY 270 Tablet 3 08/24/19 Active cloNIDine (CATAPRES) 0.1 MG TabletIndications: Hypertension, essential TAKE 1 TABLET BY MOUTH THREE TIMES A DAY 270 Tablet 1 12/10/19 Active Active Problems Problem Noted Date Diagnosed Date Arthritis 08/06/2023 Chronic bilateral low back pain without sciatica 05/15/2020 Hypertension, essential 06/01/2018 Mixed hyperlipidemia 06/01/2018 Hypothyroidism due to acquired atrophy of thyroi d 06/01/2018 Carotid atherosclerosis 06/01/2018 Anxiety and depression 06/01/2018 Trigger middle finger of right hand 06/01/2018 Abdominal aortic aneurysm without rupture 2014 Hemorrhoids Resolved Problems Problem Noted Date Diagnosed Date Resolved Date Moderate episode of recurren t major depressive disorder 06/17/2019 05/15/2020 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 06/01/2018 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 05/11/2019 Encounters Date Type Department Care Team Description 12/09/2024 Refill [facility] - Primary Care - [address] [place] [address] Devonte Garza MD Medication Refill from Last 3 Months Immunizations Immunization Administration Dates Next Due Covid-19, Mrna, Lnp-s, Pf, 30 Mcg/0.3 Ml Dose (P fizer) 06/30/2020 Hepatitis A And Hepatitis B Vaccine 10/19/2013 Influenza Vaccine, Quadrivalent, PF 05/15/2020 TDAP Vaccine 06/02/2010 Family History Medical History Relation Name Comments Hypertension Brother 1 Alcohol Abuse Brother 2 Stroke Father Thyroid Disease Mother Alzheimer's Disease Sister 1 Thyroid Disease Sister 1 Hypertension Sister 2 Thyroid Disease Sister 2 Diabetes Sister 3 Heart Attack Sister 3 Hypertension Sister 3 Thyroid Disease Sister 3 Relation Name Status Comments Brother 1 Alive Brother 2 Father Mother Sister 1 Alive Sister 2 Alive Sister 3 Alive Social History Tobacco Use Types Packs/Day Years Used Date Smoking Tobacco: Every Day Cigarettes 0.5 45 Smokeless Tobacco: Never Tobacco Cessation:Ready to Q uit: Not Asked; Counseling Given: Not Answered Alcohol Use Standard Drinks/Week Comments Not Currently 0 (1 standard drink = 0.6 oz pur e alcohol) 1x weekly; liquor [employer] Answer Date Recorded In the past 12 months has [place], gas, oil, or water [employer] threatened to shut off services in your home? Patient declined 09/23/2024 Social Connection and Isolation Panel Answer Date Recorded In a typical week, how many times do you talk on the phone with family, friends, or neighbors? Patient declined 09/23/2024 How often do you get togethe r with friends or relatives? Patient declined 09/23/2024 How often do you attend yazidi or yazidi serv ices? Patient declined 09/23/2024 Do you belong to any clubs o r organizations such as yazidi groups, unions, fraternal or athletic groups, or school groups? Patient declined 09/23/2024 How often do you attend meet ings of the clubs or organizations you belong to? Patient declined 09/23/2024 Are you , , di vorced, , never , or living with a partner? Patient declined 09/23/2024 AUDIT-C Answer Date Recorded Q1: How often do you have a drink containing alc ohol? Patient declined 09/23/2024 Q2: How many drinks containi ng alcohol do you have on a typical day when you are drinking? Patient declined 09/23/2024 Q3: How often do you have si x or more drinks on one occasion? Patient declined 09/23/2024 Overall Financial Resource Strain (CARDIA) Answe r Date Recorded How hard is it for you to pa y for the very basics like food, housing, medical care, and heating? Patient declined 09/23/2024 PHQ-2 Answer Date Recorded Total Score - Questions 1-9 0 04/0 12/2024 [facility] Occupat ional [facility] - Occupational Stress Questionnaire Answer Date Recorded Do you feel stress - tense, restless, nervous, or anxious, or unable to sleep at night because your mind is troubled all the time - these days? Patient declined 09/23/2024 Exercise Vital Sign Answer Date Recorde d On average, how many days pe r week do you engage in moderate to strenuous exercise (like a brisk walk)? Patient declined On average, how many minutes do you engage in exercise at this level? Patient declined 09/23/2024 Hunger Vital Sign Answer Date Recorded Within the past 12 months, y ou worried that your food would run out before you got the money to buy more. Patient declined Within the past 12 months, t he food you bought just didn't last and you didn't have money to get more. Patient declined PRAPARE - Transportation Answer Date Re corded In the past 12 months, has l ack of transportation kept you from medical appointments or from getting medications? Patient declined 09/23/2024 In the past 12 months, has l ack of transportation kept you from meetings, work, or from getting things needed for daily living? Patient declined 09/23/2024 Housing Stability Vital Sign Answer Edinson e Recorded In the last 12 months, was t here a time when you were not able to pay the mortgage or rent on time? Patient declined 09/24/19 25 Number of Times Moved in the Last Year Not on fi le 09/23/2024 At any time in the past 12 m [facility], were you homeless or living in a penitentiary (including now)? Patient declined 09/23/2024 Sexually Active Control Partners Comments Yes Post-menopausal Male Comments No Sex and Gender Information Value Date Recorded Sex Assigned at Not on file Legal Sex Female 12:30 AM CDT Gender Identity Not on file Sexual Orientation Not on file Occupation Industry Job Start Date Job End Date [employer] Not on file Not on file Not on file Last Filed Vital Signs Vital Sign Reading Time Taken Comments Blood Pressure 110/82 09/23/2024 3:06 PM CDT Pulse 71 09/23/2024 3:06 PM CDT Temperature 36.3 C (97.3 F) 09/23/2024 3:06 PM CDT Respiratory Rate 20 09/23/2024 3:06 PM CDT Oxygen Saturation 95% 09/23/2024 3:06 PM CDT Inhaled Oxygen Concentration - - Weight 71.1 kg (156 lb 11.2 oz) 09/23/2024 3:06 PM CDT Height 167.6 cm (5' 6) 09/23/2024 3:06 PM CDT Body Mass Index 25.29 09/23/2024 3:06 PM CDT Plan of Treatment Upcoming Encounters Date Type Department Care Team (Late st Contact Info) Description 09/13/2025 10:30 AM CDT Office Visit [facility] - Primary Care - [address] [place] [address] Devonte Garza MD [address] [place] [address] Health Maintenance Due Date Last Done Comments DEXA Bone Density 1954 Pneumococcal Immunization (5 0+ years) (1 of 2 - PCV) 1973 Cologuard 1999 Lung Cancer Screening 02/21/2004 Zoster Immunization (1 of 2) 02/21/2004 Hepatitis B Immunization (2 of 3 - Hep B Twinrix 3-dose series) 11/16/2013 10/19/2013 Respiratory Syncytial Virus (RSV) Immunization (Adult) (1 - Risk 60-74 years 1-dose series) 2014 Td Immunization Every 10 Yea rs (Adults With 1 Tdap) 06/02/2020 06/02/2010 Immunochemical Fecal Occult Blood 02/08/2022 02/08/2021 Mammogram 10/08/2023 10/07/2022, 07/25/2020, 07/27/2018 Colonoscopy 02/09/2024 02/08/2019, 12/10/2016, 12/10/2016 Colorectal Cancer Screening 02/09/2024 Influenza Immunization (#1) 2025 05/15/2020 SARS-COV-2 Immunization (2 - season) 2025 06/30/2020 Hepatitis C Virus (HCV) Screening Completed 09/07/2024 Human Papillomavirus (HPV) Immunization Aged Out No longer eligible b ased on patient's age to complete this topic Meningococcal Immunization (ACWY) Aged Out No longer eligible b ased on patient's age to complete this topic Rotavirus Immunization Aged Out No lo nger eligible based on patient's age to complete this topic Procedures Procedure Name Priority Date/Time Associated Diagnosis Comments HEPATITIS C ANTIBODY Routine 09/07/2024 11:24 AM CDT Encounter for hepatitis C screening test for low risk patient ALTA SCREENING BILATERAL DIGITAL W CAD W ALEX Routine 10/07/2022 12:13 PM CDT Encounter for screening mammogram for malignant neoplasm of breast STOOL, OCCULT BLOOD, DIAGNOSTIC, VIA GUAIAC Routine 02/08/2021 12:29 PM CDT Iron deficiency anemia, unspecified iron deficiency anemia type HM COLONOSCOPY Routine 12/10/2016 from Last 3 Months or Most Recently Relevant to Health Maintenance Results * HEPATITIS C ANTIBODY (09/07/2024 11:24 AM CDT) hepatitis C antibody 0.42 <1 S/CO 09/07/2024 10:27 PM CDT [facility] Comment: Signal/Cutoff ratio < 0.79 is Nondetected Signal/Cutoff ratio 0.80-0.99 is Grayzone Signal/Cutoff ratio > 0.99 is Detected Supplemental assays are recommended if signal/cutoff ratio is >/=1.00. Signal/cutoff ratio result >/= 5.00 is 97% predictive of positivity for recombinant immunoblot assay (RIBA) and will be reported to the [place] Department of Public [facility] as required. Blood Venipuncture / Unknown 09/07/2024 11:24 AM CDT 09/07/2024 11:24 AM CDT us Devonte Garza MD CHEMISTRY ORDERABLES Adamaris cartwright Result [facility] [address] [place] [address], * ALTA SCREENING BILATERAL DIGITAL W CAD W ALEX (10/07/2022 12:13 PM CDT) Anatomical Region Laterality Modality breast Bilateral Mammography 10/07/2022 12:1 5 PM CDT Narrative 10/07/2022 2:14 PM CDT - ALTA SCREENING BILATERAL DIGITAL W CAD W ALEX BILATERAL DIGITAL SCREENING MAMMOGRAM 3D/2D WITH CAD WITH EXAGGERATED CC MEDIOLATERAL OBLIQUE CRANIOCAUDAL: 10/07/2022 The study was acquired using digital technology and interpreted from soft copy. Current study was also evaluated with ICAD version 7.2. 2D digital mammographic views, as well as 3D digital tomosynthesis were performed in the CC and MLO projections. CLINICAL: Routine screening. Patient has no complaints. No personal history of cancer. No family history of breast cancer. COMPARISONS: Comparison is made to exams dated: 07/25/2020, 07/27/2018 [facility], and 05/20/2009 [facility]. BREAST TISSUE:The tissue of both breasts is heterogeneously dense. This may lower the sensitivity of mammography. FINDINGS: No significant masses, calcifications, or other findings are seen in either breast. There has been no significant interval change. IMPRESSION: BI-RAD 1 NEGATIVE There is no mammographic evidence of malignancy. A 1 year screening mammogram is recommended. A letter will be sent to the patient with these results. The patient will be entered into a reminder system with a target due date of 1 year for her next screening exam. Electronically signed by: Karl ford/tramaine:10/07/2022 14:00:38 Hearing Therapist(s): RT Mark(Fina)(M), [facility] letter sent: Normal Exam Reading location: [facility] BI-RADS: 1 Negative Procedure Note Karl Bridges MD - 10/07/2022 - ALTA SCREENING BILATERAL DIGITAL W CAD W ALEX BILATERAL DIGITAL SCREENING MAMMOGRAM 3D/2D WITH CAD WITH EXAGGERATED CC MEDIOLATERAL OBLIQUE CRANIOCAUDAL: 10/07/2022 The study was acquired using digital technology and interpreted from soft copy. Current study was also evaluated with ICAD version 7.2. 2D digital mammographic views, as well as 3D digital tomosynthesis were performed in the CC and MLO projections. CLINICAL: Routine screening. Patient has no complaints. No personal history of cancer. No family history of breast cancer. COMPARISONS: Comparison is made to exams dated: 07/25/2020, 07/27/2018 [facility], and 05/20/2009 [facility]. BREAST TISSUE:The tissue of both breasts is heterogeneously dense. This may lower the sensitivity of mammography. FINDINGS: No significant masses, calcifications, or other findings are seen in either breast. There has been no significant interval change. IMPRESSION: BI-RAD 1 NEGATIVE There is no mammographic evidence of malignancy. A 1 year screening mammogram is recommended. A letter will be sent to the patient with these results. The patient will be entered into a reminder system with a target due date of 1 year for her next screening exam. Electronically signed by: Karl ford/tramaine:10/07/2022 14:00:38 Hearing Therapist(s): Griselda Owens RT(R)(M), [facility] letter sent: Normal Exam Reading location: [facility] BI-RADS: 1 Negative Devonte Garza MD IMG MAMMO ORDERABLES Adamaris l Result * STOOL, OCCULT BLOOD, DIAGNOSTIC (02/08/2021 12:29 PM CDT) OCCULT BLOOD DIAG Negative Negative 02/08/2021 12:50 PM CDT [facility] Stool STOOL SPECIMEN / Unknown Non-Phlebotomy Collection / Unknown 02/08/2021 12:29 PM CDT 02/08/2021 12:44 PM CDT Devonte Garza MD BODY FLUIDS & STOOLS ORDE RUSSELL Final Result [facility] [address] [place] [address] * COLONOSCOPY (12/10/2016) Marga Howard MD PROCEDURE/MINOR SURGICAL OR DERABLES Final Result from Last 3 Months or Most Recently Relevant to Health Maintenance Insurance MEDICARE C [facility] Care Teams Jumbo Operator Relationship Specialty Start Date End Date Devonte Garza MD [address] [place] [address] PCP - General Internal Medicine 06/01/18 Patricio Howard MD [address] [place] [id number] Consulting Physician Vascular Surgery 06/01/18 Jessica Palacios APRN, SUPERVISOR BRINE [address] [place] [address] Consulting Physician Obstetrics & Gynecology 05/15/20 Nila Richards MD [address] [place] [address] Consulting Physician Cardiovascular Disease - Cardiology 07/08/22
--- OUTSIDE RECORDS SUMMARY | 2025-02-09 13:21 | XMS_ITS | Encounter Summary ---
Author Organization [facility] Address [address] [place] [address] Phone Care Team Providers Care Officer Captain Name Role Phone Devonte Garza MD Primary Care Provider [phone] Patricio Howard MD Unavailable Jessica Palacios APRN, PANEL FLOW MACHINE OPERATOR Unavailable Nila Richards MD Unavailable [phone] Reason for Visit * Reason Comments Medication Refill Encounter Details Date Type Department Care Team ([facility] Contact Info) Description 03/14/2021 Refill [facility] - Primary Care - [address] [place] [address] Rox Pantoja MD [address] [place] [address] Medication Refill Social History Tobacco [...] have Coronavirus / COVID-19? No / Unsure 03/05/2021 10:09 AM CDT documented as of this encounter Miscellaneous Notes * Telephone Encounter - Loyda Gamino RN - 03/14/2021 2:21 PM CDT Patient requested too soon. Refill should be available at pharmacy documented in this encounter Plan of Treatment Upcoming Encounters Date Type Department Care Team (Late st Contact Info) Description 09/13/2025 10:30 AM CDT Office Visit [facility] - Primary Care - [address] [place] [address] Devonte Garza MD [address] [place] [address] documented as of this encounter Visit Diagnoses Diagnosis URI with cough and congestion documented in this encounter Additional Health Concerns Infection Onset Date Last Indicated Resolved Time COVID - 19 02/28/2022 02/28/2022 03/10/2022 12:1 6 AM CDT COVID - 19 04/23/2022 04/23/2022 05/03/2022 12:1 9 AM PACKING TRACTOR MACHINE OPERATOR Assessment Noted Time PHQ-9 Depression Total Score: 0 05/15/20 20 9:00 AM PACKING TRACTOR MACHINE OPERATOR documented as of this encounter Care Teams Officer Captain Relationship Specialty Start Date End Date Devonte Garza MD [address] [place] [address] PCP - General Internal Medicine 06/01/18 Patricio Howard MD [address] [place] [address] Consulting Physician Vascular Surgery 06/01/18 Jessica Palacios, ASSISTANT ASSOCIATE PROFESSOR, PANEL FLOW MACHINE OPERATOR [address] [place] [address] Consulting Physician Obstetrics & Gynecology 05/15/20 Nila Richards MD 2 [facility] [address] [address] Consulting Physician Cardiovascular Disease - Cardiology 07/08/22 documented as of this encounter
== END 2025-02-09 13:14 | disposition home or self-care (01) ==
PROVIDERS: Emergency Provider Nurse Practitioner Family; PCP Internal Medicine
DX: S39.012A Strain of muscle, fascia and tendon of lower back, initial encounter (principal); X58.XXXA Exposure to other specified factors, initial encounter; I10 Essential (primary) hypertension; E78.5 Hyperlipidemia, unspecified; F41.9 Anxiety disorder, unspecified; F17.210 Nicotine dependence, cigarettes, uncomplicated
CPT/HCPCS: 99213; G0463

== ENCOUNTER 2025-02-14 10:59 | Emergency (ER) | payer MEDICARE, MEDICAID, SELFPAY ==
[2025-02-14 11:03] VITALS: BP 139/80; PULSE 85; RESP 20; TEMP 36.9; O2SAT 98
--- NOTE | 2025-02-14 11:14 | ED.BACK ---
HPI - Back Pain/Injury General Chief Complaint: Back Pain/Injury Stated Complaint: left back side pain Time Seen by Provider: 02/14/25 11:15 Source: patient Mode of arrival: ambulatory Limitations: no limitations Related Data Home Medications ?Medication ?Instructions ?Recorded ?Confirmed ?Last Taken ?Type atorvastatin 40 mg tablet 40 mg PO DAILY 04/25/24 04/25/24 Unknown History clonidine HCl 0.1 mg tablet 0.1 mg PO DAILY 04/25/24 04/25/24 Unknown History escitalopram oxalate 10 mg tablet 10 mg PO DAILY 04/25/24 04/25/24 Unknown History levothyroxine 125 mcg tablet 125 mcg PO DAILY 04/25/24 04/25/24 Unknown History lisinopril 20 mg tablet 20 mg PO DAILY 04/25/24 04/25/24 Unknown History verapamil 120 mg tablet 120 mg PO DAILY 04/25/24 04/25/24 Unknown History fluticasone propionate 50 intranasal 02/09/25 Unknown History mcg/actuation nasal spray,suspension Allergies Allergy/AdvReac Type Severity Reaction Status Date / Time ciprofloxacin Allergy Unknown Nausea Verified 02/14/25 11:09 metronidazole Allergy Unknown Nausea Verified 02/14/25 11:09 Review of Systems Review of Systems: CONSTITUTIONAL: Denies body aches, fever, chills EYES: Denies visual changes CARDIOVASCULAR: Denies chest pain, palpitations, or edema. RESPIRATORY: Denies cough or dyspnea. GASTROINTESTINAL: Denies abdominal pain, nausea, vomiting, or diarrhea. SKIN: Denies rash, itching, or wounds. MUSCULOSKELETAL: reports back pain NEUROLOGIC: Denies headache, numbness, tingling, or weakness. All systems reviewed & are unremarkable except as noted in HPI and below PMFSH Past Medical History Medical History Anxiety Hyperlipidemia Hypertension Surgical History Surgical History No pertinent past surgical history Family History Family History Mother Family history unknown Social History Social History Smoking packs per day: 0.75 Smoking cigarettes per day: 15.0 Smoking status: Current every day smoker Tobacco type: cigarettes Substance use: never Living arrangements: alone Gender identity (if verbalized by the patient): Female Spiritual care concerns: No Comments At time of signature, I have reviewed and agree with nursing past medical, surgical, social and family history unless otherwise noted. Please see nursing chart for further information. There is no relevant family history pertinent to the presenting complaint Exam Narrative: GENERAL: Well-appearing, well-nourished, and in no acute distress. HEAD: Normocephalic, atraumatic. EYES: conjunctivae clear NECK: Supple. full ROM CHEST: Speaks in full sentences. No respiratory distress. HEART: Regular rate and rhythm. Normal and equal peripheral pulses. MUSC: No Vertebral point tenderness. BLEs with normal strength and sensation, normal range of motion endorses pain with movement. edema or ecchymosis, No open wounds, skin tenting, or obvious deformity; alignment normal, pulse palpable and equal bilaterally, skin warm, dry, pink. Capillary refill less than 3 seconds. Gait steady. SKIN: Warm, dry, no rash. NEURO: Alert and oriented x3. Course Course Emergency Course: Patient is aware of diagnosis, understands and agrees to treatment plan. Anticipatory guidance given. Patient agrees to follow-up as directed and is aware of reasons to seek care at the emergency department. Portions of this record may have been created with voice recognition software Level of Care: Express Care Visit Vital Signs Vital signs: Vital Signs Temperature 98.4 F 02/14/25 11:03 Pulse Rate 85 02/14/25 11:03 Respiratory Rate 02/14/25 11:03 Blood Pressure 139/80 02/14/25 11:03 Pulse Oximetry 98 02/14/25 11:03 Oxygen Delivery Room Air 02/14/25 11:03 Temperature 98.4 F 02/14/25 11:03 Pulse Rate 85 02/14/25 11:03 Respiratory Rate 02/14/25 11:03 Blood Pressure 139/80 02/14/25 11:03 Pulse Oximetry 98 02/14/25 11:03 Oxygen Delivery Room Air 02/14/25 11:03 Reviewed MDM - Back Pain/Injury MDM Narrative Medical decision making narrative: Xray reviewed with pt. Advised supportive measures and s/s to go to the ER. Pt is stable and appropriate for outpt treatment and follow up with pcp. Differential Diagnosis Differential diagnosis: Likely lumbar radiculopathy, sciatica, strain of lumbar region, renal colic, pyelonephritis and discitis Discharge Plan Discharge Patient Language: [place] Prescriptions: No Action levothyroxine 125 mcg tablet 125 mcg PO DAILY verapamil 120 mg tablet 120 mg PO DAILY atorvastatin 40 mg tablet 40 mg PO DAILY clonidine HCl 0.1 mg tablet 0.1 mg PO DAILY lisinopril 20 mg tablet 20 mg PO DAILY escitalopram oxalate 10 mg tablet 10 mg PO DAILY fluticasone propionate 50 mcg/actuation spray,suspension INTRANASAL ibuprofen 800 mg tablet 800 mg PO TID PRN (Reason: pain) Qty: 15 0RF Follow-up/Referrals: Kayla,Devonte Miller MD [Primary Care Provider, Unknown]
--- NOTE | 2025-02-14 11:16 | ED.BACK ---
HPI - Back Pain/Injury General Chief Complaint: Back Pain/Injury Stated Complaint: left back side pain Time Seen by Provider: 02/14/25 11:15 Source: patient Mode of arrival: ambulatory Limitations: no limitations History of Present Illness HPI Narrative: 69 y/o female presented for c/o left lower back pain. Onset 7 days. Says she may have pulled a muscle but denies specific injury. She admits to twisting her body while on a ladder prior to onset. Has applied heat/cold and used massage chair. Denies pain radiating into the hips or legs, numbness, tingling, weakness of the lower extremities, or change in gait, saddle paresthesia or loss of bowel or bladder. Denies any changes in urination pattern, hematuria, n/v/d/f/c. Pt was seen in clinic for the same on 02/09, given ibuprofen with minimal improvement. Related Data Home Medications ?Medication ?Instructions ?Recorded ?Confirmed ?Last Taken ?Type atorvastatin 40 mg tablet 40 mg PO DAILY 04/25/24 04/25/24 Unknown History clonidine HCl 0.1 mg tablet 0.1 mg PO DAILY 04/25/24 04/25/24 Unknown History escitalopram oxalate 10 mg tablet 10 mg PO DAILY 04/25/24 04/25/24 Unknown History levothyroxine 125 mcg tablet 125 mcg PO DAILY 04/25/24 04/25/24 Unknown History lisinopril 20 mg tablet 20 mg PO DAILY 04/25/24 04/25/24 Unknown History verapamil 120 mg tablet 120 mg PO DAILY 04/25/24 04/25/24 Unknown History fluticasone propionate 50 intranasal 02/09/25 Unknown History mcg/actuation nasal spray,suspension Allergies Allergy/AdvReac Type Severity Reaction Status Date / Time ciprofloxacin Allergy Unknown Nausea Verified 02/14/25 11:09 metronidazole Allergy Unknown Nausea Verified 02/14/25 11:09 Review of Systems Review of Systems: CONSTITUTIONAL: Denies body aches, fever, chills EYES: Denies visual changes CARDIOVASCULAR: Denies chest pain, palpitations, or edema. RESPIRATORY: Denies cough or dyspnea. GASTROINTESTINAL: Denies abdominal pain, nausea, vomiting, or diarrhea. SKIN: Denies rash, itching, or wounds. MUSCULOSKELETAL: reports back pain NEUROLOGIC: Denies headache, numbness, tingling, or weakness. All systems reviewed & are unremarkable except as noted in HPI and below [facility] Past Medical History Medical History Anxiety Hyperlipidemia Hypertension Surgical History Surgical History No pertinent past surgical history Family History Family History Mother Family history unknown Social History Social History Smoking packs per day: 0.75 Smoking cigarettes per day: 15.0 Smoking status: Current every day smoker Tobacco type: cigarettes Substance use: never Living arrangements: alone Gender identity (if verbalized by the patient): Female Spiritual care concerns: No Comments At time of signature, I have reviewed and agree with nursing past medical, surgical, social and family history unless otherwise noted. Please see nursing chart for further information. There is no relevant family history pertinent to the presenting complaint Exam Narrative: GENERAL: Well-appearing, and in no acute distress. CHEST: Speaks in full sentences. No respiratory distress. HEART: Regular rate and rhythm. Normal and equal peripheral pulses. MUSC: No Vertebral point tenderness. No left para spinal tenderness or CVA tenderness with palpation. BLEs with normal strength and sensation, normal range of motion. No open wounds, skin warm, dry, pink. Capillary refill less than 3 seconds. Gait steady. SKIN: Warm, dry, no rash. NEURO: Alert and oriented x3. Slow to respond. Course Course Emergency Course: Patient is aware of diagnosis, understands and agrees to treatment plan. Anticipatory guidance given. Patient agrees to follow-up as directed and is aware of reasons to seek care at the emergency department. Portions of this record may have been created with voice recognition software Level of Care: Express Care Visit Vital Signs Vital signs: Vital Signs Temperature 98.4 F 02/14/25 11:03 Pulse Rate 85 02/14/25 11:03 Respiratory Rate 20 02/14/25 11:03 Blood Pressure 139/80 02/14/25 11:03 Pulse Oximetry 98 02/14/25 11:03 Oxygen Delivery Room Air 02/14/25 11:03 Temperature 98.4 F 02/14/25 11:03 Pulse Rate 85 02/14/25 11:03 Respiratory Rate 20 02/14/25 11:03 Blood Pressure 139/80 02/14/25 11:03 Pulse Oximetry 98 02/14/25 11:03 Oxygen Delivery Room Air 02/14/25 11:03 Reviewed MDM - Back Pain/Injury MDM Narrative Medical decision making narrative: Discussed physical exam findings and possible etiologies at length. pt stated on arrival she was concerned for kidney pain, no CVA tenderness on exam. Advised ER transfer for full evaluation of renal injury. Pt does not want to go to the eR. Pt then states she thinks it is a muscle pain as she did last week. Agreeable to muscle relaxer and steroid. Advised supportive measures and s/s to go to the ER. Pt is stable and appropriate for outpt treatment and follow up with pcp. Differential Diagnosis Differential diagnosis: Likely lumbar radiculopathy, sciatica, strain of lumbar region, renal colic, pyelonephritis and discitis Discharge Plan Discharge Clinical Impression: Strain of lumbar region Patient Disposition: Home Condition: Stable Instructions: Antibiotic Form, Acute Low Back Pain (ED) Additional Instructions: Please follow up with your Primary Care Doctor within 72 hours - call for an appointment. Avoid lifting. pushing. pulling, or anything that worsens the pain. Walking and other gentle exercising several times a week has been shown to improve back pain; bed rest is not recommended. Take steroid as directed, along with Tylenol 1000mg every 8 hours Take muscle relaxers (cyclobenzaprine) every 8 hours as needed for muscle spasm- do not drive or make any important decisions while on this medication for it can make you drowsy. Over the counter pain cream like icy/hot or biofreeze, or Salon pas/lidocaine 4% patch. You may apply heat or cold to the area as needed. Go to the ER if no improvement, or for worsening symptoms (If you experience any worsening pain, swelling, numbness, weakness, problems with bladder or bowel function, weakness or loss of feeling in one or both of your legs, or any other serious concerns.) Patient Language: Citizen Of [place] Prescriptions: New cyclobenzaprine 10 mg tablet 10 mg PO TID PRN (Reason: muscle spasm) Qty: 10 0RF methylprednisolone [Medrol (Charlie)] 4 mg tablets,dose pack See Rx Instructions .ROUTE .COMPLEX Qty: 21 0RF Rx Instructions: orally per package directions No Action levothyroxine 125 mcg tablet 125 mcg PO DAILY verapamil 120 mg tablet 120 mg PO DAILY atorvastatin 40 mg tablet 40 mg PO DAILY clonidine HCl 0.1 mg tablet 0.1 mg PO DAILY lisinopril 20 mg tablet 20 mg PO DAILY escitalopram oxalate 10 mg tablet 10 mg PO DAILY fluticasone propionate 50 mcg/actuation spray,suspension INTRANASAL ibuprofen 800 mg tablet 800 mg PO TID PRN (Reason: pain) Qty: 15 0RF Follow-up/Referrals: Kayla,Devonte Miller MD [Primary Care Provider, Unknown] Time of Disposition: 11:26
--- OUTSIDE RECORDS SUMMARY | 2025-02-14 12:57 | XMS_ITS | Encounter Summary ---
Author Organization [facility] Address [address] [place] [address] Phone Care Team Providers Care Security Inspector Name Role Phone Devonte Garza MD Primary Care Provider [phone] Patricio Howard MD Unavailable Jessica Palacios APRN, ITALIAN LECTURER Unavailable Nila Richards MD Unavailable Reason for Visit * Reason Comments Medication Refill Encounter Details Date Type Department Care Team (Late Contact Info) Description 08/04/2023 Refill [facility] - Primary Care - [address] [place] [address] Devonte Garza MD [address] [place] [address] Medication Refill Social History Tobacco [...] things Not at all 08/06/2023 11:08 AM TAG STRINGER Genna Obrien CMA Feeling down, depressed, or hopeless Not at all 08/06/2023 11:08 AM TAG STRINGER Genna Obrien CMA * Over the past 2 weeks, how often have you been bothered by any of the following problems? Question Answer Date of Assessment Author Patient Health Questionnaire -2 Score 0 08/06/2023 11:08 AM TAG STRINGER Genna Obrien CMA documented as of this encounter Miscellaneous Notes * Telephone Encounter - En Gordon RN - 08/04/2023 11:40 AM CST Pt has sasha on 08/06/23. Will address then STRINGER documented in this encounter Plan of Treatment Upcoming Encounters Date Type Department Care Team (Late st Contact Info) Description 09/13/2025 10:30 AM CDT Office Visit [facility] - Primary Care - [address] [place] [address] Devonte Garza MD [address] [place] [address] documented as of this encounter Visit Diagnoses Diagnosis Anxiety and depression Dysthymic disorder documented in this encounter Additional Health Concerns Assessment Noted Time PHQ-9 Depression Total Score: 0 05/15/20 20 9:00 AM TAG STRINGER documented as of this encounter Care Teams Security Inspector Relationship Specialty Start Date End Date Devonte Garza MD [address] [place] [address] PCP - General Internal Medicine 06/01/18 Patricio Howard MD [address] [place] [address] Consulting Physician Vascular Surgery 06/01/18 Jessica Palacios APRN, ITALIAN LECTURER [address] [place] [address] Consulting Physician Obstetrics & Gynecology 05/15/20 Nila Richards MD [address] [place] [address] [address] Consulting Physician Cardiovascular Disease - Cardiology 07/08/22 documented as of this encounter
--- OUTSIDE RECORDS SUMMARY | 2025-02-14 12:57 | XMS_ITS | Encounter Summary ---
Author Organization [facility] Address [address] [place] [address] Phone Care Team Providers Care Clerical Manager Name Role Phone Devonte Garza MD Primary Care Provider [phone] Patricio Howard MD Unavailable Jessica Palacios APRN, CHIEF OPERATING ENGINEER Unavailable Nila Richards MD Unavailable [phone] Reason for Visit * Reason Comments Medication Refill Encounter Details Date Type Department Care Team (Late Contact Info) Description 08/10/2021 Refill [facility] - Primary Care - [address] [place] [address] Devonte Garza MD [address] [place] [address] Medication Refill Social History Tobacco [...] Tran Nguyen RN - 08/10/2021 11:20 AM ENGINEERING DEPARTMENT CHAIR Medication approved and signed per standing order protocol. NEERING DEPARTMENT CHAIR documented in this encounter Plan of Treatment Upcoming Encounters Date Type Department Care Team (Late st Contact Info) Description 09/13/2025 10:30 AM CDT Office Visit [facility] - Primary Care - [address] [place] [address] Devonte Garza MD [address] [place] [address] documented as of this encounter Visit Diagnoses Not on filedocumented in this encounter Additional Health Concerns Infection Onset Date Last Indicated Resolved Time COVID - 19 02/28/2022 02/28/2022 03/10/2022 12:1 6 AM CDT COVID - 19 04/23/2022 04/23/2022 05/03/2022 12:1 9 AM ENGINEERING DEPARTMENT CHAIR Assessment Noted Time PHQ-9 Depression Total Score: 0 05/15/20 20 9:00 AM ENGINEERING DEPARTMENT CHAIR documented as of this encounter Care Teams Clerical Manager Relationship Specialty Start Date End Date Devonte Garza MD [address] [place] [address] PCP - General Internal Medicine 06/01/18 Patricio Howard MD [address] [place] [phone] Consulting Physician Vascular Surgery 06/01/18 Jessica Palacios, GLOBAL SALES DIRECTOR, CHIEF OPERATING ENGINEER [address] [place] [address] Consulting Physician Obstetrics & Gynecology 05/15/20 Nila Richards MD [address] [facility] [address] [place] [address] Consulting Physician Cardiovascular Disease - Cardiology 07/08/22 documented as of this encounter
--- OUTSIDE RECORDS SUMMARY | 2025-02-14 12:57 | XMS_ITS | Encounter Summary ---
Author Organization [facility] Address [address] [place] [address] Phone Care Team Providers Care Director Camp Name Role Phone Devonte Garza MD Primary Care Provider [phone] Patricio Howard MD Unavailable Jessica Palacios APRN, APPLICATIONS DEVELOPMENT CONSULTANT Unavailable Nila Richards MD Unavailable Reason for Visit * Reason Comments Medication Refill Encounter Details Date Type Department Care Team ([facility] Contact Info) Description 08/10/2021 Refill [facility] - Primary Care - [address] [place] [address] Rox Pantoja MD [address] [place] [address] Medication Refill Social History Tobacco [...] Tran Nguyen RN - 08/10/2021 11:20 AM STOREKEEPER STEWARD Rx discontinued on 05/28/2021 EKEEPER STEWARD documented in this encounter Plan of Treatment Upcoming Encounters Date Type Department Care Team (Late st Contact Info) Description 09/13/2025 10:30 AM CDT Office Visit [facility] - Primary Care - [address] [place] [address] Devonte Garza MD [address] [place] [address] documented as of this encounter Visit Diagnoses Diagnosis SOB (shortness of breath) Shortness of breath documented in this encounter Additional Health Concerns Infection Onset Date Last Indicated Resolved Time COVID - 19 02/28/2022 02/28/2022 03/10/2022 12:1 6 AM CDT COVID - 19 04/23/2022 04/23/2022 05/03/2022 12:1 9 AM STOREKEEPER STEWARD Assessment Noted Time PHQ-9 Depression Total Score: 0 05/15/20 9:00 AM STOREKEEPER STEWARD documented as of this encounter Care Teams Director Camp Relationship Specialty Start Date End Date Devonte Garza MD [address] [place] [address] PCP - General Internal Medicine 06/01/18 Patricio Howard MD [address] [place] [phone] Consulting Physician Vascular Surgery 06/01/18 Jessica Palacios, EQUIPMENT CLEANER AND TESTER, APPLICATIONS DEVELOPMENT CONSULTANT [address] [place] [address] Consulting Physician Obstetrics & Gynecology 05/15/20 Nila Richards MD [address] [facility] [address] [place] [address] Consulting Physician Cardiovascular Disease - Cardiology 07/08/22 documented as of this encounter
--- OUTSIDE RECORDS SUMMARY | 2025-02-14 12:57 | XMS_ITS | Encounter Summary ---
Author Organization [facility] Address [address] [place] [address] Phone Care Team Providers Care Driver Wheelchair Name Role Phone Devonte Garza MD Primary Care Provider [phone] Patricio Howard MD Unavailable Jessica Palacios APRN, MECHANICAL PIPING DESIGNER Unavailable [phone] Nila Richards MD Unavailable Reason for Visit * Reason Comments Medication Refill Encounter Details Date Type Department Care Team ([facility] Contact Info) Description 06/12/2021 Refill [facility] - Primary Care - [address] [place] [address] Rox Pantoja MD [address] [place] [address] Medication Refill Social History Tobacco [...] COVID-19? No / Unsure 06/07/2021 9:29 AM INSTALLMENT LOAN COLLECTOR documented as of this encounter Miscellaneous Notes * Telephone Encounter - Tran Nguyen RN - 06/12/2021 10:46 AM INSTALLMENT LOAN COLLECTOR D/c'd on 05/28/21 by pcp. ALLMENT LOAN COLLECTOR documented in this encounter Plan of Treatment Upcoming Encounters Date Type Department Care Team (Late st Contact Info) Description 09/13/2025 10:30 AM CDT Office Visit [facility] - Primary Care - [address] [place] [address] Devonte Garza MD [address] [place] [address] documented as of this encounter Visit Diagnoses Diagnosis SOB (shortness of breath) Shortness of breath documented in this encounter Additional Health Concerns Infection Onset Date Last Indicated Resolved Time COVID - 19 02/28/2022 02/28/2022 03/10/2022 12:1 6 AM CDT COVID - 19 04/23/2022 04/23/2022 05/03/2022 12:1 9 AM INSTALLMENT LOAN COLLECTOR Assessment Noted Time PHQ-9 Depression Total Score: 0 05/15/20 20 9:00 AM INSTALLMENT LOAN COLLECTOR documented as of this encounter Care Teams Driver Wheelchair Relationship Specialty Start Date End Date Devonte Garza MD [address] [place] [address] PCP - General Internal Medicine 06/01/18 Patricio Howard MD [address] [place] [address] Consulting Physician Vascular Surgery 06/01/18 Jessica Palacios APRN, MECHANICAL PIPING DESIGNER [address] [place] [address] Consulting Physician Obstetrics & Gynecology 05/15/20 Nila Richards MD [address] [place] [address] [address] Consulting Physician Cardiovascular Disease - Cardiology 07/08/22 documented as of this encounter
--- OUTSIDE RECORDS SUMMARY | 2025-02-14 12:57 | XMS_ITS | Encounter Summary ---
Author Organization [facility] Address [address] [place] [address] Phone Care Team Providers Care Tuber Machine Operator Name Role Phone Devonte Garza MD Primary Care Provider [phone] Patricio Howard MD Unavailable Jessica Palacios APRN, CARPENTERS HELPER Unavailable Nila Richards MD Unavailable Reason for Visit * Reason Comments Medication Refill Encounter Details Date Type Department Care Team (Late Contact Info) Description 07/15/2021 Refill [facility] - Primary Care - [address] [place] [address] Rox Pantoja MD [address] [place] [address] Medication Refill Social History Tobacco [...] COVID-19? No / Unsure 07/03/2021 10:59 AM LOADER HELPER SORTING YARD documented as of this encounter Miscellaneous Notes * Telephone Encounter - Arcelia Leblanc RN - 07/16/2021 11:24 AM LOADER HELPER SORTING YARD Medication discontinued 05/22/2021 by PCP. ER HELPER SORTING YARD documented in this encounter Plan of Treatment Upcoming Encounters Date Type Department Care Team (Late st Contact Info) Description 09/13/2025 10:30 AM CDT Office Visit [facility] - Primary Care - [address] [place] [address] Devonte Garza MD [address] [place] [address] documented as of this encounter Visit Diagnoses Diagnosis SOB (shortness of breath) Shortness of breath documented in this encounter Additional Health Concerns Infection Onset Date Last Indicated Resolved Time COVID - 19 02/28/2022 02/28/2022 03/10/2022 12:1 6 AM CDT COVID - 19 04/23/2022 04/23/2022 05/03/2022 12:1 9 AM LOADER HELPER SORTING YARD Assessment Noted Time PHQ-9 Depression Total Score: 0 05/15/20 20 9:00 AM LOADER HELPER SORTING YARD documented as of this encounter Care Teams Tuber Machine Operator Relationship Specialty Start Date End Date Devonte Garza MD [address] [place] [address] PCP - General Internal Medicine 06/01/18 Patricio Howard MD [address] [place] [address] Consulting Physician Vascular Surgery 06/01/18 Jessica Palacios APRN, CARPENTERS HELPER [address] [place] [address] Consulting Physician Obstetrics & Gynecology 05/15/20 Nila Richards MD [address] [place] [address] [address] Consulting Physician Cardiovascular Disease - Cardiology 07/08/22 documented as of this encounter
--- OUTSIDE RECORDS SUMMARY | 2025-02-14 12:57 | XMS_ITS | Encounter Summary ---
Author Organization [facility] Address [address] [place] [address] Phone Care Team Providers Care Vehicle Fare Collector Name Role Phone Devonte Garza MD Primary Care Provider [phone] Patricio Howard MD Unavailable Jessica Palacios APRN, MACHINE FANCY STITCHER Unavailable [phone] Nila Richards MD Unavailable Reason for Visit * Reason Comments Medication Refill Encounter Details Date Type Department Care Team (Late Contact Info) Description 06/12/2020 [facility] [address] [place] [address] Devonte Garza MD [address] [place] [address] Medication Refill Social History Tobacco [...] COVID-19? No / Unsure 05/15/2020 8:56 AM SALESPERSON DRIVER documented as of this encounter Miscellaneous Notes * Telephone Encounter - Tran Nguyen RN - 06/12/2020 1:40 PM SALESPERSON DRIVER Medication approved and signed per standing order protocol. SPERSON DRIVER * Telephone Encounter - Umu Taveras CMA - 06/12/2020 1:38 PM CST Rerouting SPERSON DRIVER documented in this encounter Plan of Treatment Upcoming Encounters Date Type Department Care Team (Late st Contact Info) Description 09/13/2025 10:30 AM CDT Office Visit [facility] - Primary Care - [address] [place] [address] Devonte Garza MD [address] [place], [place] [address] documented as of this encounter Visit Diagnoses [...] 19 04/23/2022 04/23/2022 05/03/2022 12:1 9 AM SALESPERSON DRIVER Assessment Noted Time PHQ-9 Depression Total Score: 0 05/15/20 9:00 AM SALESPERSON DRIVER documented as of this encounter Care Teams Vehicle Fare Collector Relationship Specialty Start Date End Date Devonte Garza MD [address] [place] [address] PCP - General Internal Medicine 06/01/18 Patricio Howard MD [address] [place] [phone] Consulting Physician Vascular Surgery 06/01/18 Jessica Palacios, PATIENT SERVICES REPRESENTATIVE, MACHINE FANCY STITCHER [address] [place] [address] Consulting Physician Obstetrics & Gynecology 05/15/20 Nila Richards MD [address] [place] [address] [address] [place] [address] Consulting Physician Cardiovascular Disease - Cardiology 07/08/22 documented as of this encounter
--- OUTSIDE RECORDS SUMMARY | 2025-02-14 12:57 | XMS_ITS | Encounter Summary ---
Author Organization [facility] Address [address] [place] [address] Phone Care Team Providers Care Coating And Embossing Unit Operator Name Role Phone Devonte Garza MD Primary Care Provider [phone] Patricio Howard MD Unavailable Jessica Palacios APRN, RESEARCH ASSISTANT MEMBER Unavailable Nila Richards MD Unavailable Reason for Visit * Reason Comments Medication Refill Encounter Details Date Type Department Care Team (Late Contact Info) Description 05/07/2020 Refill [facility] [address] [place] [address] Devonte Garza MD [address] [place] [address] Medication Refill Social History Tobacco [...] COVID-19? No / Unsure 04/19/2020 11:00 AM SEASONAL RECRUITER documented as of this encounter Miscellaneous Notes * Telephone Encounter - Devonte Garza MD - 05/08/2020 12:32 PM SEASONAL RECRUITER Refill request approved. ONAL RECRUITER * Telephone Encounter - Umu Taveras [facility] - 05/08/2020 11:47 AM SEASONAL RECRUITER Medication failed the protocol, provider to review [...] ago Abdominal aortic aneurysm without rupture (HCC) [facility] Joce Duffy PAC 9 months ago Deltoid bursitis, right [facility] - Devonte Roberts MD 10 months ago Acute pain of right shoulder [facility] Joce Duffy PAC 12 months ago Hypertension, essential [facility] [place] MD 1 year ago URI, acute [facility] [place] Altman MD Upcoming Appointments Future Appointments In 1 week Devonte Garza MD [facility] THERAPY MANAGER - Recent and Past Visits Recent Visits Date Type Provider Dept 04/19/20 Office Visit Joce Duffy PAC [facility] 07/16/19 Office Visit Devonte Garza MD [facility] [place] 05/11/19 Office Visit Devonte Garza MD [facility] 04/14/19 Office Visit Devonte Garza MD [facility] Flores Showing recent visits within past 460 [...] Readings from Last 1 Encounters: 04/19/20 126/74 ONAL RECRUITER documented in this encounter Plan of Treatment Upcoming Encounters Date Type Department Care Team (Late st Contact Info) Description 09/13/2025 10:30 AM CDT Office Visit [facility] - Primary Care - [place] [address] [place] [address] Devonte Garza MD [address] [place] [address] documented as of this encounter Visit Diagnoses [...] 19 04/23/2022 04/23/2022 05/03/2022 12:1 9 AM SEASONAL RECRUITER Assessment Noted Time PHQ-9 Depression Total Score: 0 07/17/19 19 1:00 PM SEASONAL RECRUITER documented as of this encounter Care Teams Coating And Embossing Unit Operator Relationship Specialty Start Date End Date Devonte Garza MD [address] [place] [address] PCP - General Internal Medicine 06/01/18 Patricio Howard MD [address] [place] [phone] Consulting Physician Vascular Surgery 06/01/18 Jessica Palacios TODDLER NANNY, RESEARCH ASSISTANT MEMBER [address] [place] [address] Consulting Physician Obstetrics & Gynecology 05/15/20 Nila Richards MD [address] [facility] [address] [place] [address] Consulting Physician Cardiovascular Disease - Cardiology 07/08/22 documented as of this encounter
--- OUTSIDE RECORDS SUMMARY | 2025-02-14 12:57 | XMS_ITS | Encounter Summary ---
Author Organization [facility] Address [address] [place] [address] Phone Care Team Providers Care Policy Cancellation Clerk Name Role Phone Devonte Garza MD Primary Care Provider [phone] Patricio Howard MD Unavailable Jessica Palacios APRN, PRODUCTION LAPPING MACHINE OPERATOR Unavailable Nila Richards MD Unavailable [phone] Reason for Visit * Reason Comments Medication Refill Encounter Details Date Type Department Care Team (Late Contact Info) Description 08/06/2021 Refill [facility] - Primary Care - [place] [address] [place] [address] Rox Pantoja MD [address] [place] [address] Medication Refill Social History Tobacco [...] Arcelia Leblanc RN - 08/06/2021 11:47 AM ZYGLO INSPECTOR Refill request too soon. O INSPECTOR documented in this encounter Plan of Treatment Upcoming Encounters Date Type Department Care Team (Late st Contact Info) Description 09/13/2025 10:30 AM CDT Office Visit [facility] - Primary Care - [place] [address] [place] [address] Devonte Garza MD [address] [place] [address] documented as of this encounter Visit Diagnoses Diagnosis URI with cough and congestion documented in this encounter Additional Health Concerns Infection Onset Date Last Indicated Resolved Time COVID - 19 02/28/2022 02/28/2022 03/10/2022 12:1 6 AM CDT COVID - 19 04/23/2022 04/23/2022 05/03/2022 12:1 9 AM ZYGLO INSPECTOR Assessment Noted Time PHQ-9 Depression Total Score: 0 05/15/20 20 9:00 AM ZYGLO INSPECTOR documented as of this encounter Care Teams Policy Cancellation Clerk Relationship Specialty Start Date End Date Devonte Garza MD [address] [place] [address] PCP - General Internal Medicine 06/01/18 Patricio Howard MD [address] [place] [address] Consulting Physician Vascular Surgery 06/01/18 Jessica Palacios, CORKING MACHINE OPERATOR, PRODUCTION LAPPING MACHINE OPERATOR [address] [place] [address] Consulting Physician Obstetrics & Gynecology 05/15/20 Nila Richards MD [address] [facility] [address] [place] [address] Consulting Physician Cardiovascular Disease - Cardiology 07/08/22 documented as of this encounter
--- OUTSIDE RECORDS SUMMARY | 2025-02-14 12:57 | XMS_ITS | Clinical Summary ---
Author Organization [facility] Address [address] [place] [address] Phone Care Team Providers Care Beam Carrier Hauler Pusher Name Role Phone Devonte Garza MD Primary Care Provider [phone] Patricio Howard MD Unavailable Jessica Palacios AUTO PORTER, METALLURGICAL ANALYST Unavailable [phone] Nila Richards MD Unavailable [phone] Allergies Active Allergy Reactions Criticality Noted Date [...] Type Department Care Team Description 12/09/2024 Refill [facility] - Primary Care - [address] [place] [address] Devonte Garza MD Medication Refill from Last [...] oz pur e alcohol) 1x weekly; liquor incuBET [employer] Answer Date Recorded In the past 12 months has [employer], gas, oil, or water Vetiary threatened to shut off services in your home? Patient declined 09/23/2024 Social Connection and Isolation Panel Answer Date Recorded In a typical week, how many times do you talk on the phone with family, friends, or neighbors? Patient declined 09/23/2024 How often do you get togethe r with friends or relatives? Patient declined 09/23/2024 How often do you attend mu-ism or roman catholic serv ices? Patient declined 09/23/2024 Do you belong to any clubs o r organizations such as mu-ism groups, unions, fraternal or athletic groups, or [...] Score - Questions 1-9 0 04/0 12/2024 [facility] of Occupat ional Health - Occupational Stress [...] any time in the past 12 m [facility], were you homeless or living in a skilled nursing (including now)? Patient declined 09/23/2024 Sexually Active Control Partners Comments Yes Post-menopausal Male Comments No Sex and Gender Information Value Date Recorded Sex Assigned at Not on file Legal Sex Female 12:30 AM CDT Gender Identity Not on file Sexual Orientation Not on file Occupation Industry Job Start Date Job End Date [employer]. Not on file Not on file Not [...] Description 09/13/2025 10:30 AM CDT Office [facility] - Primary Care - [place] [address] [place] [address] Devonte Garza MD [address] [place] [address] Health Maintenance Due Date Last [...] 0.42 <1 S/CO 09/07/2024 10:27 PM CDT [facility] Comment: Signal/Cutoff ratio < 0.79 is Nondetected Signal/Cutoff ratio 0.80-0.99 is Grayzone Signal/Cutoff ratio > 0.99 is Detected Supplemental assays are recommended if signal/cutoff ratio is >/=1.00. Signal/cutoff ratio result >/= 5.00 is 97% predictive of positivity for recombinant immunoblot assay (RIBA) and will be reported to the [place] Department of Public Health as required. Blood Venipuncture / Unknown 09/07/2024 11:24 AM CDT 09/07/2024 11:24 AM CDT us Devonte Garza MD CHEMISTRY ORDERABLES Adamaris cartwright Result [facility] [address] [place] [address], * ALTA SCREENING BILATERAL DIGITAL W CAD [...] is made to exams dated: 07/25/2020, 07/27/2018 [facility], and 05/20/2009 [facility]. BREAST TISSUE:The tissue of both breasts is [...] exam. Electronically signed by: Karl ford/tramaine:10/07/2022 14:00:38 Warehouse Order Picker(s): RT Mark(Fina)(M), [facility] letter sent: Normal Exam Reading location: [facility] BI-RADS: 1 Negative Procedure Note Karl Bridges [...] is made to exams dated: 07/25/2020, 07/27/2018 [facility], and 05/20/2009 [facility]. BREAST TISSUE:The tissue of both breasts is [...] exam. Electronically signed by: Karl ford/tramaine:10/07/2022 14:00:38 Warehouse Order Picker(s): Griselda Owens RT(R)(M), [facility] letter sent: Normal Exam Reading location: [facility] BI-RADS: 1 Negative Devonte Garza MD IMG MAMMO ORDERABLES Adamaris l Result * STOOL, OCCULT BLOOD, DIAGNOSTIC (02/08/2021 12:29 PM CDT) OCCULT BLOOD DIAG Negative Negative 02/08/2021 12:50 PM CDT [facility] Stool STOOL SPECIMEN / Unknown Non-Phlebotomy Collection / Unknown 02/08/2021 12:29 PM CDT 02/08/2021 12:44 PM CDT Devonte Garza MD BODY FLUIDS & STOOLS ORDE RUSSELL Final Result [facility] [address] [place] [address] * COLONOSCOPY (12/10/2016) Marga Howard MD PROCEDURE/MINOR SURGICAL OR DERABLES Final Result from Last 3 Months or Most Recently Relevant to Health Maintenance Insurance MEDICARE C [facility] Care Teams Beam Carrier Hauler Pusher Relationship Specialty Start Date End Date Devonte Garza MD [address] [place] [address] PCP - General Internal Medicine 06/01/18 Patricio Howard MD [address] [place] [phone] Consulting Physician Vascular Surgery 06/01/18 Jessica Palacios APRN, METALLURGICAL ANALYST [address] [place] [address] Consulting Physician Obstetrics & Gynecology 05/15/20 Nila Richards MD [address] [place] [address] Consulting Physician Cardiovascular Disease - Cardiology 07/08/22
--- OUTSIDE RECORDS SUMMARY | 2025-02-14 12:57 | XMS_ITS | Encounter Summary ---
Author Organization [facility] Address [address] [place] [address] Phone Care Team Providers Care Floorhand Name Role Phone Devonte Garza MD Primary Care Provider [phone] Patricio Howard MD Unavailable Jessica Palacios APRN, MILK TESTER Unavailable Nila Richards MD Unavailable Reason for Visit * Reason Comments Medication Refill Encounter Details Date Type Department Care Team (Late Contact Info) Description 10/28/2021 Refill [facility] - Primary Care - [place] [address] [place] [address] Devonte Garza MD [address] [place] [address] Medication Refill Social History Tobacco [...] Description 09/13/2025 10:30 AM CDT [facility] - [place] [address] [place] [address] Devonte Garza MD [address] [place] [address] documented as of this encounter Visit Diagnoses Not on filedocumented in this encounter Additional Health Concerns Infection Onset Date Last Indicated Resolved Time COVID - 19 02/28/2022 02/28/2022 03/10/2022 12:1 6 AM CDT COVID - 19 04/23/2022 04/23/2022 05/03/2022 12:1 9 AM DIRECTOR HAIR Assessment Noted Time PHQ-9 Depression Total Score: 0 05/15/20 20 9:00 AM DIRECTOR HAIR documented as of this encounter Care Teams Floorhand Relationship Specialty Start Date End Date Devonte Garza MD [address] [place] [address] PCP - General Internal Medicine 06/01/18 Patricio Howard MD [address] [place] [address] Consulting Physician Vascular Surgery 06/01/18 Jessica Palacios, MINE SAFETY MANAGER, MILK TESTER [address] [place] [address] Consulting Physician Obstetrics & Gynecology 05/15/20 Nila Richards MD [address] [facility] [address] [place] [address] Consulting Physician Cardiovascular Disease - Cardiology 07/08/22 documented as of this encounter
--- OUTSIDE RECORDS SUMMARY | 2025-02-14 12:57 | XMS_ITS | Clinical Summary ---
Author Organization [facility] Address [address] [place] [address] Care Team Providers Care Chair Car Attendant Name Role Phone Devonte Garza MD Primary [...] 1 tablet (125 mcg total) by mouth tooth grinder before breakfast Active lisinopriL (PRINIVIL,ZESTR [place]) 20 [...] on file Legal Sex Female 3:38 AM LIFTER DRIVER Gender Identity Not on file Sexual Orientation [...] Additional history exists Covid-19 Vaccine (2 - 2024-2 6 season) 2025 06/30/2020 Influenza Vaccine (#1) 2025 05/15/2020 Colon [...] to Health Maintenance Insurance [employer] MEDICARE ADVANTAGE [id number] [place] [place] [address] MEDICARE ADVANTAGE Care Teams Chair Car Attendant Relationship Specialty Start Date End Date Devonte Garza MD [address] [place] [address] PCP - General Internal Medicine 01/01/22
--- OUTSIDE RECORDS SUMMARY | 2025-02-14 12:57 | XMS_ITS | Encounter Summary ---
Author Organization [facility] Address [address] [place] [address] Phone Care Team Providers Care House Director Name Role Phone Devonte Garza MD Primary Care Provider [phone] Patricio Howard MD Unavailable Jessica Palacios APRN, TANK STAVE ASSEMBLER Unavailable [phone] Nila Richards MD Unavailable Reason for Visit * Reason Comments Medication Refill Encounter Details Date Type Department Care Team ([facility] Contact Info) Description 04/07/2021 Refill [facility] - Primary Care - [place] [address] [place] [address] Devonte Garza MD [address] [place] [address] Medication Refill Social History Tobacco [...] Description 09/13/2025 10:30 AM CDT Office Visit [facility] - Primary Care - [place] [address] [place] [address] Devonte Garza MD [address] [place] [address] documented as of this encounter Visit Diagnoses Not on filedocumented in this encounter Additional Health Concerns Infection Onset Date Last Indicated Resolved Time COVID - 19 02/28/2022 02/28/2022 03/10/2022 12:1 6 AM CDT COVID - 19 04/23/2022 04/23/2022 05/03/2022 12:1 9 AM RECORDS SECTION SUPERVISOR Assessment Noted Time PHQ-9 Depression Total Score: 0 05/15/20 9:00 AM RECORDS SECTION SUPERVISOR documented as of this encounter Care Teams House Director Relationship Specialty Start Date End Date Devonte Garza MD [address] [place] [address] PCP - General Internal Medicine 06/01/18 Patricio Howard MD [address] [place] [phone] Consulting Physician Vascular Surgery 06/01/18 Jessica Palacios, SLICING MACHINE OPERATOR/TENDER, TANK STAVE ASSEMBLER [address] [place] [address] Consulting Physician Obstetrics & Gynecology 05/15/20 Nila Richards MD [address] [facility] [address] (work) Consulting Physician Cardiovascular Disease - Cardiology 07/08/22 documented as of this encounter
--- OUTSIDE RECORDS SUMMARY | 2025-02-14 12:57 | XMS_ITS | Encounter Summary ---
Author Organization [facility] Address [address] [place] [address] Phone Care Team Providers Care Software Designer Name Role Phone Devonte Garza MD Primary Care Provider [phone] Patricio Howard MD Unavailable Jessica Palacios APRN, HEAVY EQUIPMENT SALES MANAGER Unavailable Nila Richards MD Unavailable Reason for Visit * Reason Comments Medication Refill Encounter Details Date Type Department Care Team (Late Contact Info) Description 09/29/2020 Refill [facility] - Primary Care - [place] [address] [place] [address] Dorothea Bedolla APRN, HEAVY EQUIPMENT SALES MANAGER [address] [place] [address] Medication Refill Social History Tobacco [...] 10:30 AM CDT Office Visit [facility] - Primary Care - [place] [address] [place] [address] Devonte Garza MD [address] [place] [address] documented as of this encounter Visit Diagnoses [...] 19 04/23/2022 04/23/2022 05/03/2022 12:1 9 AM HEAT TREAT TECHNICIAN Assessment Noted Time PHQ-9 Depression Total Score: 0 05/15/20 20 9:00 AM HEAT TREAT TECHNICIAN documented as of this encounter Care Teams Software Designer Relationship Specialty Start Date End Date Devonte Garza MD [address] [place] [address] PCP - General Internal Medicine 06/01/18 Patricio Howard MD [address] [place] [address] Consulting Physician Vascular Surgery 06/01/18 Jessica Palacios, SENIOR NET ARCHITECT, HEAVY EQUIPMENT SALES MANAGER [address] [place] [address] Consulting Physician Obstetrics & Gynecology 05/15/20 Nila Richards MD 2 [facility] [address] [address] Consulting Physician Cardiovascular Disease - Cardiology 07/08/22 documented as of this encounter
--- OUTSIDE RECORDS SUMMARY | 2025-02-14 12:57 | XMS_ITS | Clinical Summary ---
Author Organization [facility] Address [address] [place] [address] Care Team Providers Care Dental Scheduling Coordinator Name Role Phone Moody Gold MD Primary Care Provider [phone] Source Comments [facility] and Associated Physician Practices is amultiple site organization consisting of ambulatory clinics and hospital sitesin [place], [place], [place] and [place]. This disclosure is being madepursuant to the Care Everywhere program and may not contain all information available regarding this patient. Last updated 18.[facility] Allergies Active Allergy Reactions Criticality Noted Date [...] on file Legal Sex Female 5:36 PM FINANCIAL MANAGEMENT ANALYST Gender Identity Not on file Sexual Orientation [...] patient's age to complete this topic Insurance [facility] MEDICARE MEDICAID - OUT OF STATE [facility] Care Teams Dental Scheduling Coordinator Relationship Specialty Start Date End Date Moody Gold MD [address] [place] [address] PCP - General 12/08/14
--- OUTSIDE RECORDS SUMMARY | 2025-02-14 12:57 | XMS_ITS | Encounter Summary ---
Author Organization [facility] Address [address] [place] [address] Phone Care Team Providers Care Marketing Professional Name Role Phone Devonte Garza MD Primary Care Provider [phone] Patricio Howard MD Unavailable Jessica Palacios APRN, ACTIVITIES MANAGER Unavailable Nila Richards MD Unavailable [phone] Reason for Visit * Reason Comments Medication Refill Encounter Details Date Type Department Care Team (Late Contact Info) Description 02/29/2020 [facility] [address] [place] [address] Devonte Garza MD [address] [place] [address] Medication Refill Social History Tobacco [...] Industry Job Start Date Job End Date [employer] Not on file Not on file Not [...] Visits 7 months ago Deltoid [facility], [facility] Dev[facility] Roberts [facility] 8 months ago [facility] Joce Zu[facility]iga PAC 9 months ago Hypertension, [facility] Dev[facility] Roberts MD 10 months ago URI, [facility] Dev[facility] Roberts MD 1 year ago URI, [facility] Dev[facility] Roberts MD Upcoming Appointments Future Appointments In 2 months Devonte Garza MD [facility] Family Medicine - MARK Mcwilliams OCCUPATIONAL HEALTH SPECIALIST - Recent and Past Visits Recent Visits Date Type Provider Dept 07/16/19 Office Visit Devonte Garza MD [facility] 06/17/19 Office Visit [facility] [place] 05/11/19 Office Visit Devonte Garza MD [...] Description 09/13/2025 10:30 AM CDT Office Visit [facility] - Primary Care - [place] [address] [place] [address] Devonte Garza MD [address] [place] [address] documented as of this encounter Visit Diagnoses [...] 19 04/23/2022 04/23/2022 05/03/2022 12:1 9 AM PRECISION DYER Assessment Noted Time PHQ-9 Depression Total Score: 0 07/17/19 19 1:00 PM PRECISION DYER documented as of this encounter Care Teams Marketing Professional Relationship Specialty Start Date End Date Devonte Garza MD [address] [place] [address] PCP - General Internal Medicine 06/01/18 Patricio Howard MD [address] [place] [address] Consulting Physician Vascular Surgery 06/01/18 Jessica Palacios APRN, ACTIVITIES MANAGER [address] [place] [address] Consulting Physician Obstetrics & Gynecology 05/15/20 Nila Richards MD [address] [place] [address] [address] Consulting Physician Cardiovascular Disease - Cardiology 07/08/22 documented as of this encounter
--- OUTSIDE RECORDS SUMMARY | 2025-02-14 12:57 | XMS_ITS | Encounter Summary ---
Author Organization [facility] Address [address] [place] [address] Phone Care Team Providers Care Coating Machine Feeder Name Role Phone Devonte Garza MD Primary Care Provider [phone] Patricio Howard MD Unavailable Jessica Palacios APRN, BUSINESS PROCESS COORDINATOR Unavailable Nila Richards MD Unavailable Reason for Visit * Reason Comments Medication Refill Encounter Details Date Type Department Care Team ([facility] Contact Info) Description 06/09/2020 Refill [facility] - Primary Care - Mark [address] [place] [address] Devonte Garza MD [address] [place] [address] Medication Refill Social History Tobacco [...] COVID-19? No / Unsure 05/15/2020 8:56 AM HAND BUFFING WHEEL FORMER documented as of this encounter Miscellaneous Notes * Telephone Encounter - Tran Nguyen RN - 06/09/2020 8:41 AM HAND BUFFING WHEEL FORMER Medication approved and signed per standing order protocol. BUFFING WHEEL FORMER * Telephone Encounter - Umu Taveras CMA - 06/09/2020 8:35 AM CST Rerouting BUFFING WHEEL FORMER documented in this encounter Plan of Treatment Upcoming Encounters Date Type Department Care Team (Late st Contact Info) Description 09/13/2025 10:30 AM CDT Office Visit [facility] - Primary Care - Mark [address] [place] [phone] Devonte Garza MD [address] [place] [address] documented as of this encounter Visit Diagnoses [...] 19 04/23/2022 04/23/2022 05/03/2022 12:1 9 AM HAND BUFFING WHEEL FORMER Assessment Noted Time PHQ-9 Depression Total Score: 0 05/15/20 20 9:00 AM HAND BUFFING WHEEL FORMER documented as of this encounter Care Teams Coating Machine Feeder Relationship Specialty Start Date End Date Devonte Garza MD [address] [place] [address] PCP - General Internal Medicine 06/01/18 Patricio Howard MD [address] [place] [address] Consulting Physician Vascular Surgery 06/01/18 Jessica Palacios, BOMB TECHNICIAN, BUSINESS PROCESS COORDINATOR [address] [place] [address] Consulting Physician Obstetrics & Gynecology 05/15/20 Nila Richards MD [address] [facility] [place] [address] Consulting Physician Cardiovascular Disease - Cardiology 07/08/22 documented as of this encounter
--- OUTSIDE RECORDS SUMMARY | 2025-02-14 12:57 | XMS_ITS | Encounter Summary ---
Author Organization [facility] Address [address] [place] [address] Phone Care Team Providers Care Proof Coin Collector Name Role Phone Devonte Garza MD Primary Care Provider [phone] Patricio Howard MD Unavailable Jessica Palacios APRN, SEWING ROOM SUPERVISOR Unavailable [phone] Nila Richards MD Unavailable [phone] Reason for Visit * Reason Comments Medication Refill Encounter Details Date Type Department Care Team ([facility] Contact Info) Description 03/14/2021 Refill [facility] - Primary Care - [place] [address] [place] [address] Rox Pantoja MD [address] [place] [address] Medication Refill Social History Tobacco [...] Description 09/13/2025 10:30 AM CDT Office Visit [facility] - Primary Care - [place] [address] [place] [address] Devonte Garza MD [address] [place] [address] documented as of this encounter Visit Diagnoses Diagnosis URI with cough and congestion documented in this encounter Additional Health Concerns Infection Onset Date Last Indicated Resolved Time COVID - 19 02/28/2022 02/28/2022 03/10/2022 12:1 6 AM CDT COVID - 19 04/23/2022 04/23/2022 05/03/2022 12:1 9 AM THERMAL CUTTING MACHINE OPERATOR Assessment Noted Time PHQ-9 Depression Total Score: 0 05/15/20 20 9:00 AM THERMAL CUTTING MACHINE OPERATOR documented as of this encounter Care Teams Proof Coin Collector Relationship Specialty Start Date End Date Devonte Garza MD [address] [place] [address] PCP - General Internal Medicine 06/01/18 Patricio Howard MD [address] [place] [address] Consulting Physician Vascular Surgery 06/01/18 Jessica Palacios, CIVIL ESTIMATOR, SEWING ROOM SUPERVISOR [address] [place] [address] Consulting Physician Obstetrics & Gynecology 05/15/20 Nila Richards MD [address] [facility] [address] [address] Consulting Physician Cardiovascular Disease - Cardiology 07/08/22 documented as of this encounter
--- OUTSIDE RECORDS SUMMARY | 2025-02-14 12:57 | XMS_ITS | Encounter Summary ---
Author Organization [facility] Address [address] [place] [address] Phone Care Team Providers Care Wood Miller Name Role Phone Devonte Garza MD Primary Care Provider [phone] Patricio Howard MD Unavailable Jessica Palacios APRN, ACUTE CARE PHYSICIAN Unavailable Nila Richards MD Unavailable Reason for Visit * Reason Comments Medication Refill Encounter Details Date Type Department Care Team (Late Contact Info) Description 07/15/2021 Refill [facility] - Primary Care - [place] [address] [place] [address] Devonte Garza MD [address] [place] [address] Medication Refill Social History Tobacco [...] COVID-19? No / Unsure 07/03/2021 10:59 AM MACHINE LONG GOODS HELPER documented as of this encounter Miscellaneous Notes * Telephone Encounter - Arcelia Leblanc RN - 07/16/2021 11:22 AM MACHINE LONG GOODS HELPER Refill requested too soon. INE LONG GOODS HELPER documented in this encounter Plan of Treatment Upcoming Encounters Date Type Department Care Team (Late st Contact Info) Description 09/13/2025 10:30 AM CDT Office Visit [facility] - Primary Care - [place] [address] [place] [address] Devonte Graza MD [address] [place] [address] documented as of this encounter Visit Diagnoses Not on filedocumented in this encounter Additional Health Concerns Infection Onset Date Last Indicated Resolved Time COVID - 19 02/28/2022 02/28/2022 03/10/2022 12:1 6 AM CDT COVID - 19 04/23/2022 04/23/2022 05/03/2022 12:1 9 AM MACHINE LONG GOODS HELPER Assessment Noted Time PHQ-9 Depression Total Score: 0 05/15/20 20 9:00 AM MACHINE LONG GOODS HELPER documented as of this encounter Care Teams Wood Miller Relationship Specialty Start Date End Date Devonte Garza MD [address] [place] [address] PCP - General Internal Medicine 06/01/18 Patricio Howard MD [address] [place] [address] Consulting Physician Vascular Surgery 06/01/18 Jessica Palacios, MENTAL HYGIENE CONSULTANT, ACUTE CARE PHYSICIAN [address] [place] [address] Consulting Physician Obstetrics & Gynecology 05/15/20 Nila Richards MD [address] [place] [address] [address] Consulting Physician Cardiovascular Disease - Cardiology 07/08/22 documented as of this encounter
== END 2025-02-14 11:30 | disposition home or self-care (01) ==
PROVIDERS: Emergency Provider Nurse Practitioner Family; PCP Internal Medicine
DX: S39.012A Strain of muscle, fascia and tendon of lower back, initial encounter (principal); X50.1XXA Overexertion from prolonged static or awkward postures, initial encounter; I10 Essential (primary) hypertension; E78.5 Hyperlipidemia, unspecified; F41.9 Anxiety disorder, unspecified; F17.210 Nicotine dependence, cigarettes, uncomplicated
CPT/HCPCS: 99213; G0463

== ENCOUNTER 2025-04-26 17:08 | Emergency (ER) | payer MEDICARE, MEDICAID, SELFPAY ==
[2025-04-26 17:16] VITALS: BP 161/86; PULSE 74; RESP 18; TEMP 36.2; O2SAT 99
--- NOTE | 2025-04-26 17:24 | ED.URI ---
HPI - URI/Sore Throat General Chief Complaint: Upper Respiratory Infection Stated Complaint: Nasal Congestion/Chest Congestion Time Seen by Provider: 04/26/25 17:11 Source: patient Mode of arrival: ambulatory Limitations: no limitations History of Present Illness HPI Narrative: Belle is a 70 year old female patient presenting to the clinic today with c/o nasal and chest congestion x 2 days. Coughing up and blowing clear phlegm. She denies any fever, chills, body aches, chest pain, or sob. Has been using mucinex for her symptoms. Related Data Home Medications ?Medication ?Instructions ?Recorded ?Confirmed ?Last Taken ?Type atorvastatin 40 mg tablet 40 mg PO DAILY 04/25/24 04/25/24 Unknown History clonidine HCl 0.1 mg tablet 0.1 mg PO DAILY 04/25/24 04/25/24 Unknown History escitalopram oxalate 10 mg tablet 10 mg PO DAILY 04/25/24 04/25/24 Unknown History levothyroxine 125 mcg tablet 125 mcg PO DAILY 04/25/24 04/25/24 Unknown History lisinopril 20 mg tablet 20 mg PO DAILY 04/25/24 04/25/24 Unknown History verapamil 120 mg tablet 120 mg PO DAILY 04/25/24 04/25/24 Unknown History fluticasone propionate 50 intranasal 02/09/25 Unknown History mcg/actuation nasal spray,suspension Allergies Allergy/AdvReac Type Severity Reaction Status Date / Time ciprofloxacin Allergy Unknown Nausea Verified 04/26/25 17:21 metronidazole Allergy Unknown Nausea Verified 04/26/25 17:21 Review of Systems Review of Systems: Pertinent positives per HPI. Patient denies any fever, chills, rash, headache, visual changes, dizziness, shortness of breath, chest pain, palpitations, nausea, vomiting, diarrhea, constipation, abdominal pain, or any urinary issues. [facility] Past Medical History Medical History Anxiety Hyperlipidemia Hypertension Surgical History Surgical History No pertinent past surgical history Family History Family History Mother Family history unknown Social History Social History (Reviewed 04/26/25 @ 17:35 by JUAN RAMON Morton Smoking packs per day: 0.75 Smoking cigarettes per day: 15.0 Smoking status: Current every day smoker Tobacco type: cigarettes Substance use: never Living arrangements: alone Gender identity (if verbalized by the patient): Female Spiritual care concerns: No Comments At the time of my signature, I reviewed and agree with the nursing past medical, surgical, social, and family history. There is no relevant family history pertinent to the patient complaint. Exam Narrative: General: Well-developed, well nourished, in no apparent distress Head: Normocephalic, atraumatic Eyes: Pupils equally round and reactive to light bilaterally, EOM intact, sclera and conjunctive clear, no discharge, lids normal Ears: TMs intact and clear, ear canals clear, no drainage, grossly hearing normal. Nose: Nares patent, clear nasal discharge, no inflammation, no sinus tenderness. Mouth: Oral pharynx without lesions or masses, good dentition, MMM. Neck: Supple, trachea midline, no enlargement of anterior or posterior cervical nodes, no thyroid masses or goiter palpable. Cardio: Regular rate and rhythm, s1 and s2 normal, no murmur appreciated. Resp: Faint expiratory wheezing in the bases otherwise clear, no rhonchi, rales, or rubs Course Course Emergency Course: Portions of this record may have been created with voice recognition software. Level of Care: Express Care Visit Vital Signs Vital signs: Vital Signs Temperature 36.2 C L 04/26/25 17:16 Pulse Rate 74 04/26/25 17:16 Respiratory Rate 18 04/26/25 17:16 Blood Pressure 161/86 H 04/26/25 17:16 Pulse Oximetry 99 04/26/25 17:16 Oxygen Delivery Room Air 04/26/25 17:16 Temperature 36.2 C L 04/26/25 17:16 Pulse Rate 74 04/26/25 17:16 Respiratory Rate 18 04/26/25 17:16 Blood Pressure 161/86 H 04/26/25 17:16 Pulse Oximetry 99 04/26/25 17:16 Oxygen Delivery Room Air 04/26/25 17:16 Vital signs reviewed MDM - URI/Sore Throat MDM Narrative Medical decision making narrative: At the time of visit patient is resting comfortably on the exam table. Patient appears to be nontoxic. C/o nasal and chest congestion x 2 days. Coughing up and blowing clear phlegm. She denies any fever, chills, body aches, chest pain, or sob. Has been using Mucinex for her symptoms. On exam patient has bilateral TMs intact and clear, clear nasal congestion, mild inferior turbinate inflammation, oral pharynx-postnasal drip, no cervical lymphadenopathy, faint expiratory wheezing in the bases, heart rates regular rate and rhythm. COVID and influenza testing was ordered. Labs: COVID and influenza testing was negative in the clinic today. Plan: I suspect patient has URI/bronchitis. Prescription for albuterol inhaler was sent to the pharmacy. Supportive measures were discussed with the patient and they voiced understanding discharge instructions and agrees to treatment plan. Return precautions reviewed Differential Diagnosis Differential diagnosis: Likely upper respiratory infection, otitis media, sinusitis, viral infection, bronchitis, influenza, pharyngitis and other (COVID) Lab Data Labs: Lab Results 04/26/25 Range/Units 17:34 POC Influenza A Ag Negative (Negative) POC Influenza B Ag Negative (Negative) POC SARS CoV-2 Ag Negative (Negative) Discharge Plan Discharge Clinical Impression: Bronchitis URI (upper respiratory infection) Qualifiers: URI type: unspecified URI Qualified Code(s): J06.9 - Acute upper respiratory infection, unspecified Patient Disposition: Home Condition: Stable Instructions: Antibiotic Form, Acute Bronchitis (ED), Cold Symptoms (ED) Additional Instructions: COVID and influenza testing were negative in the clinic today. Take prescription medications only as prescribed-albuterol inhaler May take Coricidin HBP for cold/flu symptoms. Increase fluids and stay well hydrated May take Tylenol or motrin as directed on bottle for pain/fever May use Flonase 1 spray in each nare daily May take OTC antihistamines such as Zyrtec or Claritin daily as directed on bottle May apply Vicks vapor rub to chest to open sinuses Sinus rinses for congestion Cepacol spray, cough drops, throat lozenges, warm tea with honey/lemon, gargle salt water to soothe throat BRAT diet for diarrhea Clear liquids x 24 hours then advance as tolerated for nausea/vomiting Go to the ED if you develop a worsening in your condition- high fever not controlled by Tylenol or Motrin, dehydration, weakness, lethargy, shortness of breath, or chest pain. Follow up with your PCP in 3-5 days if symptoms persist. Patient Language: Haitian Prescriptions: New albuterol sulfate 90 mcg/actuation HFA aerosol inhaler 2 puff inhalation Q4-6H PRN (Reason: shortness of breath or wheezing) 30 Days Qty: 8.5 0RF No Action levothyroxine 125 mcg tablet 125 mcg PO DAILY verapamil 120 mg tablet 120 mg PO DAILY atorvastatin 40 mg tablet 40 mg PO DAILY clonidine HCl 0.1 mg tablet 0.1 mg PO DAILY lisinopril 20 mg tablet 20 mg PO DAILY escitalopram oxalate 10 mg tablet 10 mg PO DAILY fluticasone propionate 50 mcg/actuation spray,suspension INTRANASAL Follow-up/Referrals: Kayla,Devonte Miller MD [Primary Care Provider, Unknown] Time of Disposition: 17:33 Quality NIHSS Nursing Documentation ED NIHSS nursing documentation: reviewed/agree
--- OUTSIDE RECORDS SUMMARY | 2025-04-26 17:30 | XMS_ITS | Encounter Summary ---
Author Organization [facility] Address [address] [place] [address] Phone Care Team Providers Care Clinical Office Technician Name Role Phone Devonte Garza MD Primary Care Provider [phone] Patricio Howard MD Unavailable Jessica Palacios APRN, SPECIAL EQUIPMENT TECHNICIAN Unavailable [phone] Nila Richards MD Unavailable [phone] Reason for Visit * Reason Comments Medication Refill Encounter Details Date Type Department Care Team (Late st Contact Info) Description 08/06/2021 Refill [facility] - Primary Care - [place] [address] [place] [address] Rox Pantoja MD [address] [place] [address] Medication Refill Social History Tobacco [...] Arcelia Leblanc RN - 08/06/2021 11:47 AM PRINCIPAL GIFTS OFFICER Refill request too soon. CIPAL GIFTS OFFICER documented in this encounter Plan of Treatment Upcoming Encounters Date Type Department Care Team (Late st Contact Info) Description 09/13/2025 10:30 AM CDT Office Visit [facility] - Primary Care - [place] [address] [place] [address] Devonte Garza MD [address] [place] [address] documented as of this encounter Visit Diagnoses Diagnosis URI with cough and congestion documented in this encounter Additional Health Concerns Infection Onset Date Last Indicated Resolved Time COVID - 19 02/28/2022 02/28/2022 03/10/2022 12:1 6 AM CDT COVID - 19 04/23/2022 04/23/2022 05/03/2022 12:1 9 AM PRINCIPAL GIFTS OFFICER Assessment Noted Time PHQ-9 Depression Total Score: 0 05/15/20 20 9:00 AM PRINCIPAL GIFTS OFFICER documented as of this encounter Care Teams Clinical Office Technician Relationship Specialty Start Date End Date Devonte Garza MD [address] [place] [address] PCP - General Internal Medicine 06/01/18 Patricio Howard MD [address] [place] [address] Consulting Physician Vascular Surgery 06/01/18 Jessica Palacios, DOOR ASSEMBLER, SPECIAL EQUIPMENT TECHNICIAN [address] [place] [address] Consulting Physician Obstetrics & Gynecology 05/15/20 Nila Richards MD [address] [facility] [address] [place] [address] Consulting Physician Cardiovascular Disease - Cardiology 07/08/22 documented as of this encounter
--- OUTSIDE RECORDS SUMMARY | 2025-04-26 17:30 | XMS_ITS | Encounter Summary ---
Author Organization [facility] Address [address] [place] [address] Phone Care Team Providers Care Float Nurse Name Role Phone Devonte Garza MD Primary Care Provider [phone] Patricio Howard MD Unavailable Jessica Palacios APRN, FINGERPRINT CLERK Unavailable Nila Richards MD Unavailable Reason for Visit * Reason Comments Medication Refill Encounter Details Date Type Department Care Team (Late st Contact Info) Description 07/15/2021 Refill [facility] - Primary Care - [place] [address] [place] [address] Rox Pantoja MD [address] [place] [address] Medication Refill Social History Tobacco [...] COVID-19? No / Unsure 07/03/2021 10:59 AM DIRECTOR AGENCY & STRATEGIC PARTNERSHIPS documented as of this encounter Miscellaneous Notes * Telephone Encounter - Arcelia Leblanc RN - 07/16/2021 11:24 AM DIRECTOR AGENCY & STRATEGIC PARTNERSHIPS Medication discontinued 05/22/2021 by PCP. CTOR AGENCY & STRATEGIC PARTNERSHIPS documented in this encounter Plan of Treatment Upcoming Encounters Date Type Department Care Team (Late st Contact Info) Description 09/13/2025 10:30 AM CDT Office Visit [facility] - Primary Care - [place] [address] [place] [address] Devonte Garza MD [address] [place] [address] documented as of this encounter Visit Diagnoses Diagnosis SOB (shortness of breath) Shortness of breath documented in this encounter Additional Health Concerns Infection Onset Date Last Indicated Resolved Time COVID - 19 02/28/2022 02/28/2022 03/10/2022 12:1 6 AM CDT COVID - 19 04/23/2022 04/23/2022 05/03/2022 12:1 9 AM DIRECTOR AGENCY & STRATEGIC PARTNERSHIPS Assessment Noted Time PHQ-9 Depression Total Score: 0 05/15/20 20 9:00 AM DIRECTOR AGENCY & STRATEGIC PARTNERSHIPS documented as of this encounter Care Teams Float Nurse Relationship Specialty Start Date End Date Devonte Garza MD [address] [place] [address] PCP - General Internal Medicine 06/01/18 Patricio Howard MD [address] [place] [address] Consulting Physician Vascular Surgery 06/01/18 Jessica Palacios AUTOMATIC SCREWMAKER, FINGERPRINT CLERK [address] [place] [address] Consulting Physician Obstetrics & Gynecology 05/15/20 Nila Richards MD 2 [facility] [address] [address] Consulting Physician Cardiovascular Disease - Cardiology 07/08/22 documented as of this encounter
--- OUTSIDE RECORDS SUMMARY | 2025-04-26 17:30 | XMS_ITS | Encounter Summary ---
Author Organization [facility] Address [address] [place] [address] Phone Care Team Providers Care Zinc Plater Name Role Phone Devonte Garza MD Primary Care Provider [phone] Patricio Howard MD Unavailable Jessica Palacios APRN, GENERAL OFFICE ASSOCIATE Unavailable Nila Richards MD Unavailable [phone] Reason for Visit * Reason Comments Medication Refill Encounter Details Date Type Department Care Team (Late st Contact Info) Description 08/10/2021 Refill [facility] - Primary Care - [place] [address] [place] [address] Rox Pantoja MD [address] [place] [address] Medication Refill Social History Tobacco [...] Tran Nguyen RN - 08/10/2021 11:20 AM POLYSTYRENE BEAD MOLDER Rx discontinued on 05/28/2021 STYRENE BEAD MOLDER documented in this encounter Plan of Treatment Upcoming Encounters Date Type Department Care Team (Late st Contact Info) Description 09/13/2025 10:30 AM CDT Office Visit [facility] - Primary Care - [place] [address] [place] [address] Devonte Garza MD [address] [place] [address] documented as of this encounter Visit Diagnoses Diagnosis SOB (shortness of breath) Shortness of breath documented in this encounter Additional Health Concerns Infection Onset Date Last Indicated Resolved Time COVID - 19 02/28/2022 02/28/2022 03/10/2022 12:1 6 AM CDT COVID - 19 04/23/2022 04/23/2022 05/03/2022 12:1 9 AM POLYSTYRENE BEAD MOLDER Assessment Noted Time PHQ-9 Depression Total Score: 0 05/15/20 20 9:00 AM POLYSTYRENE BEAD MOLDER documented as of this encounter Care Teams Zinc Plater Relationship Specialty Start Date End Date Devonte Garza MD [address] [place] [address] PCP - General Internal Medicine 06/01/18 Patricio Howard MD [address] [place] [phone] Consulting Physician Vascular Surgery 06/01/18 Jessica Palacios, NEUROCRITICAL CARE PHYSICIAN, GENERAL OFFICE ASSOCIATE [address] [place] [address] Consulting Physician Obstetrics & Gynecology 05/15/20 Nila Richards MD [address] [facility] [address] [place] [address] Consulting Physician Cardiovascular Disease - Cardiology 07/08/22 documented as of this encounter
--- OUTSIDE RECORDS SUMMARY | 2025-04-26 17:30 | XMS_ITS | Encounter Summary ---
Author Organization [facility] Address [address] [place] [address] Phone Care Team Providers Care Manager Quality Improvement Name Role Phone Devonte Garza MD Primary Care Provider [phone] Patricio Howard MD Unavailable Jessica Palacios APRN, NEW CAR MAKE READY WORKER Unavailable [phone] Nila Richards MD Unavailable [phone] Reason for Visit * Reason Comments Medication Refill Encounter Details Date Type Department Care Team (Late st Contact Info) Description 07/15/2021 Refill [facility] - Primary Care - [place] [address] [place] [address] Devonte Garza MD [address] [place] [address] Medication Refill Social History Tobacco [...] COVID-19? No / Unsure 07/03/2021 10:59 AM V BELT MOLD ASSEMBLER AND CURER documented as of this encounter Miscellaneous Notes * Telephone Encounter - Arcelia Leblanc RN - 07/16/2021 11:22 AM V BELT MOLD ASSEMBLER AND CURER Refill requested too soon. V BELT MOLD ASSEMBLER AND CURER documented in this encounter Plan of Treatment Upcoming Encounters Date Type Department Care Team (Late st Contact Info) Description 09/13/2025 10:30 AM CDT Office Visit [facility] - Primary Care - [place] [address] [place] [address] Devonte Garza MD [address] [place] [address] documented as of this encounter Visit Diagnoses Not on filedocumented in this encounter Additional Health Concerns Infection Onset Date Last Indicated Resolved Time COVID - 19 02/28/2022 02/28/2022 03/10/2022 12:1 6 AM CDT COVID - 19 04/23/2022 04/23/2022 05/03/2022 12:1 9 AM V BELT MOLD ASSEMBLER AND CURER Assessment Noted Time PHQ-9 Depression Total Score: 0 05/15/20 20 9:00 AM V BELT MOLD ASSEMBLER AND CURER documented as of this encounter Care Teams Manager Quality Improvement Relationship Specialty Start Date End Date Devonte Garza MD [address] [place] [address] PCP - General Internal Medicine 06/01/18 Patricio Howard MD [address] [place] [phone] Consulting Physician Vascular Surgery 06/01/18 Jessica Palacios, DELI COOK, NEW CAR MAKE READY WORKER [address] [place] [address] Consulting Physician Obstetrics & Gynecology 05/15/20 Nila Richards MD [address] [place] [place] [address] [address] Consulting Physician Cardiovascular Disease - Cardiology 07/08/22 documented as of this encounter
--- OUTSIDE RECORDS SUMMARY | 2025-04-26 17:31 | XMS_ITS | Clinical Summary ---
Author Organization [facility] Address [address] [place] [address] Care Team Providers Care Head Bone Grinder Name Role Phone Moody Gold MD Primary Care Provider [phone] Source Comments [facility],non-[facility] health care Affiliates and Associated Physician Practices is amultiple site organization consisting of ambulatory clinics and hospital sitesin [place], [place], [place] and [place]. This disclosure is being madepursuant to the Care Everywhere program and may not contain all information available regarding this patient. Last updated 18.[facility] Allergies Active Allergy Reactions Criticality Noted Date [...] Years Used Date Smoking Tobacco: Former Cigarettes 0.5 Q uit: 08/27/2015 Smokeless Tobacco: Never Alcohol Use Standard Drinks/Week Comments Yes 0 (1 standard drink = 0.6 oz pur e alcohol) Comments No Sex and Gender Information Value Date Recorded Sex Assigned at Not on file Legal Sex Female 5:36 PM SERVOMECHANISM ASSEMBLER Gender Identity Not on file Sexual Orientation [...] 50+ (1 of 1 - PCV) 02/21/2004 Respiratory Syncytial Virus (RSV) Vaccine Pt: or over 60 yrs (1 - Risk 50-74 years 1-dose series) 02/21/2004 ZOSTER VACCINE (1 of 2) 02/21/2004 DEPRESSION SCREENING 06/02/2024 COVID-19 VACCINE (1 - 2024-2 6 season) 2025 INFLUENZA VACCINE (#1) 2025 COLON [...] patient's age to complete this topic Insurance [facility] MEDICARE MEDICAID - OUT OF STATE [facility] Care Teams Head Bone Grinder Relationship Specialty Start Date End Date Moody Gold MD [address] [place] [address] PCP - General 12/08/14
--- OUTSIDE RECORDS SUMMARY | 2025-04-26 17:31 | XMS_ITS | Encounter Summary ---
Author Organization [facility] Address [address] [place] [address] Phone Care Team Providers Care Olericulture Professor Name Role Phone Devonte Garza MD Primary Care Provider [phone] Patricio Howard MD Unavailable Jessica Palacios APRN, TOP LIFT CUTTER Unavailable Nila Richards MD Unavailable [phone] Reason for Visit * Reason Comments Medication Refill Encounter Details Date Type Department Care Team (Late st Contact Info) Description 05/07/[facility] [address] [place] [address] Devonte Garza MD [address] [place] [address] Medication Refill Social History Tobacco [...] COVID-19? No / Unsure 04/19/2020 11:00 AM CHEMISTRY LECTURER documented as of this encounter Miscellaneous Notes * Telephone Encounter - Devonte Garza MD - 05/08/2020 12:32 PM CHEMISTRY LECTURER Refill request approved. ISTRY LECTURER * Telephone Encounter - Umu Taveras [facility] - 05/08/2020 11:47 AM CHEMISTRY LECTURER Medication failed the protocol, provider to review [...] ago Abdominal aortic aneurysm without rupture (HCC) [facility] Joce Duffy PAC 9 months ago Deltoid bursitis, right [facility] - Devonte Roberts MD 10 months ago [facility] right [facility] 12 months ago [facility] URI, acute [facility] [place] Altman MD Upcoming Appointments Future Appointments In 1 week [facility]za [facility] Recent and Past Visits Recent Visits Date Type Provider Dept 04/19/20 Office Visit Joce Duffy PAC [facility] 07/16/19 Office Visit Devonte Garza MD [facility] 05/11/19 Office Visit Devonte Garza MD [facility] 04/14/19 Office Visit [facility] MD [facility] [place] Showing recent visits within past 460 [...] Readings from Last 1 Encounters: 04/19/20 126/74 ISTRY LECTURER documented in this encounter Plan of Treatment Upcoming Encounters Date Type Department Care Team (Late st Contact Info) Description 09/13/2025 10:30 AM CDT Office Visit [facility] - Primary Care - [place] [address] [place] [address] Devonte Garza MD [address] [place] [address] documented as of this encounter Visit Diagnoses [...] 19 04/23/2022 04/23/2022 05/03/2022 12:1 9 AM CHEMISTRY LECTURER Assessment Noted Time PHQ-9 Depression Total Score: 0 07/17/19 19 1:00 PM CHEMISTRY LECTURER documented as of this encounter Care Teams Olericulture Professor Relationship Specialty Start Date End Date Devonte Garza MD [address] [place] [address] PCP - General Internal Medicine 06/01/18 Patricio Howard MD [address] [place] [phone] Consulting Physician Vascular Surgery 06/01/18 Jessica Palacios, LEGAL OFFICER, TOP LIFT CUTTER [address] [place] [address] Consulting Physician Obstetrics & Gynecology 05/15/20 Nila Richards MD [address] [facility] [address] [place] [address] [place] [address] Consulting Physician Cardiovascular Disease - Cardiology 07/08/22 documented as of this encounter
--- OUTSIDE RECORDS SUMMARY | 2025-04-26 17:31 | XMS_ITS | Encounter Summary ---
Author Organization [facility] Address [address] [place] [address] Phone Care Team Providers Care Slitter And Rewinder Machine Operator Name Role Phone Devonte Garza MD Primary Care Provider [phone] Patricio Howard MD Unavailable Jessica Palacios APRN, ACADEMIC ADVISEMENT DIRECTOR Unavailable [phone] Nila Richards MD Unavailable Reason for Visit * Reason Comments Medication Refill Encounter Details Date Type Department Care Team (Late st Contact Info) Description 03/14/2021 Refill [facility] - Primary Care - [place] [address] [place] [address] Rox Pantoja MD [address] [place] [address] Medication Refill Social History Tobacco [...] Description 09/13/2025 10:30 AM CDT Office Visit [facility] - Primary Care - [place] [address] [place] [address] Devonte Garza MD [address] [place] [address] documented as of this encounter Visit Diagnoses Diagnosis URI with cough and congestion documented in this encounter Additional Health Concerns Infection Onset Date Last Indicated Resolved Time COVID - 19 02/28/2022 02/28/2022 03/10/2022 12:1 6 AM CDT COVID - 19 04/23/2022 04/23/2022 05/03/2022 12:1 9 AM DUST CONTROL ENGINEER Assessment Noted Time PHQ-9 Depression Total Score: 0 05/15/20 20 9:00 AM DUST CONTROL ENGINEER documented as of this encounter Care Teams Slitter And Rewinder Machine Operator Relationship Specialty Start Date End Date Devonte Garza MD [address] [place] [address] PCP - General Internal Medicine 06/01/18 Patricio Howard MD [address] [place] [phone] Consulting Physician Vascular Surgery 06/01/18 Jessica Palacios, FINANCIAL QUANTITATIVE ANALYST, ACADEMIC ADVISEMENT DIRECTOR [address] [place] [address] Consulting Physician Obstetrics & Gynecology 05/15/20 Nila Richards MD [address] [place] [address] [address] Consulting Physician Cardiovascular Disease - Cardiology 07/08/22 documented as of this encounter
--- OUTSIDE RECORDS SUMMARY | 2025-04-26 17:31 | XMS_ITS | Encounter Summary ---
Author Organization [facility] Address [address] [place] [address] Phone Care Team Providers Care Student Development Advisor Name Role Phone Devotne Garza MD Primary Care Provider [phone] Patricio Howard MD Unavailable Jessica Palacios APRN, LOADING UNIT OPERATOR SEATING Unavailable Nila Richards MD Unavailable [phone] Reason for Visit * Reason Comments Medication Refill Encounter Details Date Type Department Care Team (Late st Contact Info) Description 06/09/2020 Refill [facility] - Primary Care - [place] [address] [place] [address] Devonte Garza MD [address] [place] [address] Medication Refill Social History Tobacco [...] COVID-19? No / Unsure 05/15/2020 8:56 AM DINKEY ENGINEER documented as of this encounter Miscellaneous Notes * Telephone Encounter - Tran Nguyen RN - 06/09/2020 8:41 AM DINKEY ENGINEER Medication approved and signed per standing order protocol. EY ENGINEER * Telephone Encounter - Umu Taveras CMA - 06/09/2020 8:35 AM CST Rerouting EY ENGINEER documented in this encounter Plan of Treatment Upcoming Encounters Date Type Department Care Team (Late st Contact Info) Description 09/13/2025 10:30 AM CDT Office Visit [facility] - Primary Care - [place] [address] [place] [address] Devonte Garza MD [address] [place] [id number] documented as of this encounter Visit Diagnoses [...] 6 AM CDT COVID - 19 04/23/2022 04/23/202205/03/2022 12:1 9 AM DINKEY ENGINEER Assessment Noted Time PHQ-9 Depression Total Score: 0 05/15/20 9:00 AM DINKEY ENGINEER documented as of this encounter Care Teams Student Development Advisor Relationship Specialty Start Date End Date Devonte Garza MD [address] [place] [address] PCP - General Internal Medicine 06/01/18 Patricio Howard MD [address] [place] [address] Consulting Physician Vascular Surgery 06/01/18 Jessica aPlacios, MASTER CERTIFIED RV TECHNICIAN, LOADING UNIT OPERATOR SEATING [address] [place] [address] Consulting Physician Obstetrics & Gynecology 05/15/20 Nila Richards MD [address] [facility] [address] [place] [address] [place] [address] Consulting Physician Cardiovascular Disease - Cardiology 07/08/22 documented as of this encounter
--- OUTSIDE RECORDS SUMMARY | 2025-04-26 17:31 | XMS_ITS | Encounter Summary ---
Author Organization [facility] Address [address] [place] [address] Phone Care Team Providers Care Electrical Line Worker Name Role Phone Devonte Garza MD Primary Care Provider [phone] Patricio Howard MD Unavailable Jessica Palacios APRN, CAR WORKER HELPER Unavailable Nila Richards MD Unavailable [phone] Reason for Visit * Reason Comments Medication Refill Encounter Details Date Type Department Care Team (Late st Contact Info) Description 06/12/2021 Refill [facility] - Primary Care - [place] [address] [place] [address] Rox Pantoja MD [address] [place] [address] Medication Refill Social History Tobacco [...] COVID-19? No / Unsure 06/07/2021 9:29 AM SENIOR DATA SCIENTIST documented as of this encounter Miscellaneous Notes * Telephone Encounter - Tran Nguyen RN - 06/12/2021 10:46 AM SENIOR DATA SCIENTIST D/c'd on 05/28/21 by pcp. OR DATA SCIENTIST documented in this encounter Plan of Treatment Upcoming Encounters Date Type Department Care Team (Late st Contact Info) Description 09/13/2025 10:30 AM CDT Office Visit [facility] - Primary Care - [place] [address] [place] [address] Devonte Garza MD [address] [place] [address] documented as of this encounter Visit Diagnoses Diagnosis SOB (shortness of breath) Shortness of breath documented in this encounter Additional Health Concerns Infection Onset Date Last Indicated Resolved Time COVID - 19 02/28/2022 02/28/2022 03/10/2022 12:1 6 AM CDT COVID - 19 04/23/2022 04/23/2022 05/03/2022 12:1 9 AM SENIOR DATA SCIENTIST Assessment Noted Time PHQ-9 Depression Total Score: 0 05/15/20 20 9:00 AM SENIOR DATA SCIENTIST documented as of this encounter Care Teams Electrical Line Worker Relationship Specialty Start Date End Date Devonte Garza MD [address] [place] [address] PCP - General Internal Medicine 06/01/18 Patricio Howard MD [address] [place] [address] Consulting Physician Vascular Surgery 06/01/18 Jessica Palacios APRN, CAR WORKER HELPER [address] [place] [address] Consulting Physician Obstetrics & Gynecology 05/15/20 Nila Richards MD [address] [place] [address] [address] Consulting Physician Cardiovascular Disease - Cardiology 07/08/22 documented as of this encounter
--- OUTSIDE RECORDS SUMMARY | 2025-04-26 17:31 | XMS_ITS | Clinical Summary ---
Author Organization [facility] Address [address] [place] [address] Care Team Providers Care Client Hr Manager Name Role Phone Devonte Garza MD [...] 1 tablet (125 mcg total) by mouth retail planning manager before breakfast Active lisinopriL (PRINIVIL,ZESTR [place]) 20 [...] on file Legal Sex Female 3:38 AM ELECTRONIC SYSTEMS SECURITY ASSESSMENT Gender Identity Not on file Sexual Orientation [...] Recently Relevant to Health Maintenance Insurance MEDICARE ADVANTAGE [facility] Address: [facility] [address] [place] [address] UHC MEDICARE ADVANTAGE [facility] MED[facility] Address: [address] [address] [place] [address] Care Teams Client Hr Manager Relationship Specialty Start Date End Date Devonte Garza MD [address] [place] [address] PCP - General Internal Medicine 01/01/22
--- OUTSIDE RECORDS SUMMARY | 2025-04-26 17:31 | XMS_ITS | Encounter Summary ---
Author Organization [facility] Address [address] [place] [address] Phone Care Team Providers Care Dietary Cook Name Role Phone Devonte Garza MD Primary Care Provider [phone] Patricio Howard MD Unavailable Jessica Palacios APRN, CAPTAIN/CHECK AIRMAN Unavailable Nila Richards MD Unavailable [phone] Reason for Visit * Reason Comments Medication Refill Encounter Details Date Type Department Care Team (Late st Contact Info) Description 09/29/2020 Refill [facility] - Primary Care - [place] [address] [place] [address] Dorothea Bedolla APRN, CAPTAIN/CHECK AIRMAN [address] [place] [address] Medication Refill Social History Tobacco [...] Description 09/13/2025 10:30 AM CDT Office Visit [facility] - Primary Care - [place] [address] [place] [address] Devonte Garza MD [address] [place] [address] documented as of this encounter Visit Diagnoses [...] 19 04/23/2022 04/23/2022 05/03/2022 12:1 9 AM BRIM STRETCHER Assessment Noted Time PHQ-9 Depression Total Score: 0 05/15/20 20 9:00 AM BRIM STRETCHER documented as of this encounter Care Teams Dietary Cook Relationship Specialty Start Date End Date Devonte Garza MD [address] [place] [address] PCP - General Internal Medicine 06/01/18 Patricio Howard MD [address] [place] [address] Consulting Physician Vascular Surgery 06/01/18 Jessica Palacios, MEMORIAL COUNSELOR, CAPTAIN/CHECK AIRMAN [address] [place] [address] Consulting Physician Obstetrics & Gynecology 05/15/20 Nila Richards MD [address] [place] [address] [address] Consulting Physician Cardiovascular Disease - Cardiology 07/08/22 documented as of this encounter
--- OUTSIDE RECORDS SUMMARY | 2025-04-26 17:31 | XMS_ITS | Encounter Summary ---
Author Organization [facility] Address [address] [place] [address] Phone Care Team Providers Care Workshop Manager Name Role Phone Devonte Garza MD Primary Care Provider [phone] Patricio Howard MD Unavailable Jessica Palacios APRN, AGENT CONTRACT CLERK Unavailable [phone] Nila Richards MD Unavailable Reason for Visit * Reason Comments Medication Refill Encounter Details Date Type Department Care Team (Late st Contact Info) Description 10/28/2021 Refill [facility] - Primary Care - [place] [address] [place] [address] Devonte Garza MD [address] [place] [address] Medication Refill Social History Tobacco [...] Group - Primary Care - [place] [address] [place] [address] Devonte Garza MD [address] [place] [address] documented as of this encounter Visit Diagnoses Not on filedocumented in this encounter Additional Health Concerns Infection Onset Date Last Indicated Resolved Time COVID - 19 02/28/2022 02/28/2022 03/10/2022 12:1 6 AM CDT COVID - 19 04/23/2022 04/23/2022 05/03/2022 12:1 9 AM FACING MACHINE OPERATOR Assessment Noted Time PHQ-9 Depression Total Score: 0 05/15/20 20 9:00 AM FACING MACHINE OPERATOR documented as of this encounter Care Teams Workshop Manager Relationship Specialty Start Date End Date Devonte Garza MD [address] [place] [address] PCP - General Internal Medicine 06/01/18 Patricio Howard MD [address] [place] [address] Consulting Physician Vascular Surgery 06/01/18 Jessica Palacios, ASSEMBLER DECK AND HULL, AGENT CONTRACT CLERK [address] [place] [address] Consulting Physician Obstetrics & Gynecology 05/15/20 Nila Richards MD [address] [facility] [address] [address] [place] [address] Consulting Physician Cardiovascular Disease - Cardiology 07/08/22 documented as of this encounter
--- OUTSIDE RECORDS SUMMARY | 2025-04-26 17:31 | XMS_ITS | Encounter Summary ---
Author Organization [facility] Address [address] [place] [address] Phone Care Team Providers Care Dairy Cattle Farmer Name Role Phone Devonte Garza MD Primary Care Provider [phone] Patricio Howard MD Unavailable Jessica Palacios APRN, CHECK AND TRANSFER BEADER Unavailable [phone] Nila Richards MD Unavailable [phone] Reason for Visit * Reason Comments Medication Refill Encounter Details Date Type Department Care Team (Late st Contact Info) Description 04/07/[address] [facility] - Primary Care - [place] [address] [place] [address] Devonte Garza MD [address] [place] [address] Medication Refill Social History Tobacco [...] 09/13/2025 10:30 AM CDT Office Visit [facility] - Primary Care - [place] [address] [place] [address] Devonte Garza MD [address] [place] [address] documented as of this encounter Visit Diagnoses Not on filedocumented in this encounter Additional Health Concerns Infection Onset Date Last Indicated Resolved Time COVID - 19 02/28/2022 02/28/2022 03/10/2022 12:1 6 AM CDT COVID - 19 04/23/2022 04/23/2022 05/03/2022 12:1 9 AM SALESPERSON FURS Assessment Noted Time PHQ-9 Depression Total Score: 0 05/15/20 9:00 AM SALESPERSON FURS documented as of this encounter Care Teams Dairy Cattle Farmer Relationship Specialty Start Date End Date Devonte Garza MD [address] [place] [address] PCP - General Internal Medicine 06/01/18 Patricio Howard MD [address] [place] [address] Consulting Physician Vascular Surgery 06/01/18 Jessica Palacios, ECOSYSTEM ECOLOGY PROFESSOR, CHECK AND TRANSFER BEADER [address] [place] [address] Consulting Physician Obstetrics & Gynecology 05/15/20 Nila Richards MD [address] [facility] [place] [address] Consulting Physician Cardiovascular Disease - Cardiology 07/08/22 documented as of this encounter
--- OUTSIDE RECORDS SUMMARY | 2025-04-26 17:31 | XMS_ITS | Encounter Summary ---
Author Organization [facility] Address [address] [place] [address] Phone Care Team Providers Care Healthcare Science Specialist Name Role Phone Devonte Garza MD Primary Care Provider [phone] Patricio Howard MD Unavailable Jessica Palacios APRN, CERTIFIED MAINTENANCE WELDER Unavailable Nila Richards MD Unavailable [phone] Reason for Visit * Reason Comments Medication Refill Encounter Details Date Type Department Care Team (Late st Contact Info) Description 08/10/2021 Refill [facility] - Primary Care - [place] [address] [place] [address] Devonte Garza MD [address] [place] [address] Medication Refill Social History [...] Tran Nguyen RN - 08/10/2021 11:20 AM MANAGER UTILITY Medication approved and signed per standing order protocol. GER UTILITY documented in this encounter Plan of Treatment Upcoming Encounters Date Type Department Care Team (Late st Contact Info) Description 09/13/2025 10:30 AM CDT Office Visit [facility] - Primary Care - [place] [address] [place] [address] Devonte Garza MD [address] [place] [address] documented as of this encounter Visit Diagnoses Not on filedocumented in this encounter Additional Health Concerns Infection Onset Date Last Indicated Resolved Time COVID - 19 02/28/2022 02/28/2022 03/10/2022 12:1 6 AM CDT COVID - 19 04/23/2022 04/23/2022 05/03/2022 12:1 9 AM MANAGER UTILITY Assessment Noted Time PHQ-9 Depression Total Score: 0 05/15/20 9:00 AM MANAGER UTILITY documented as of this encounter Care Teams Healthcare Science Specialist Relationship Specialty Start Date End Date Devonte Garza MD [address] [place] [address] PCP - General Internal Medicine 06/01/18 Patricio Howard MD [address] [place] [address] Consulting Physician Vascular Surgery 06/01/18 Jessica Palacios, TRANS ROUTER, CERTIFIED MAINTENANCE WELDER [address] [place] [address] Consulting Physician Obstetrics & Gynecology 05/15/20 Nila Richards MD [address] [facility] [address] [place] [address] Consulting Physician Cardiovascular Disease - Cardiology 07/08/22 documented as of this encounter
--- OUTSIDE RECORDS SUMMARY | 2025-04-26 17:31 | XMS_ITS | Encounter Summary ---
Author Organization [facility] Address [address] [place] [address] Phone Care Team Providers Care Veterinarian Poultry Name Role Phone Devonte Garza MD Primary Care Provider [phone] Patricio Howard MD Unavailable Jessica Palacios APRN, WOMEN'S APPAREL SALESPERSON Unavailable Nila Richards MD Unavailable [phone] Reason for Visit * Reason Comments Medication Refill Encounter Details Date Type Department Care Team (Late st Contact Info) Description 06/12/2020 Refill [facility] [address] [place] [address] Devonte Garza MD [address] [place] [address] Medication Refill Social History Tobacco [...] COVID-19? No / Unsure 05/15/2020 8:56 AM LENS INSERTER documented as of this encounter Miscellaneous Notes * Telephone Encounter - Tran Nguyen RN - 06/12/2020 1:40 PM LENS INSERTER Medication approved and signed per standing order protocol. INSERTER * Telephone Encounter - Umu Taveras CMA - 06/12/2020 1:38 PM CST Rerouting INSERTER documented in this encounter Plan of Treatment Upcoming Encounters Date Type Department Care Team (Late st Contact Info) Description 09/13/2025 10:30 AM CDT Office Visit [facility] - Primary Care - [place] [address] [place] [address] Devonte Garza MD [address] [place], [place] [phone] documented as of this encounter Visit Diagnoses [...] 19 04/23/2022 04/23/2022 05/03/2022 12:1 9 AM LENS INSERTER Assessment Noted Time PHQ-9 Depression Total Score: 0 05/15/20 20 9:00 AM LENS INSERTER documented as of this encounter Care Teams Veterinarian Poultry Relationship Specialty Start Date End Date Devonte Garza MD [address] [place] [address] PCP - General Internal Medicine 06/01/18 Patricio Howard MD [address] [place] [phone] Consulting Physician Vascular Surgery 06/01/18 Jessica Palacios, METAL FLOW COORDINATOR, WOMEN'S APPAREL SALESPERSON [address] [place] [address] Consulting Physician Obstetrics & Gynecology 05/15/20 Nila Richards MD [address] [place] [address] [address] [place] [address] Consulting Physician Cardiovascular Disease - Cardiology 07/08/22 documented as of this encounter
--- OUTSIDE RECORDS SUMMARY | 2025-04-26 17:31 | XMS_ITS | Clinical Summary ---
Author Organization [facility] Address [address] [place] [address] Phone Care Team Providers Care Air Export Coordinator Name Role Phone Devonte Garza MD Primary Care Provider [phone] Patricio Howard MD Unavailable Jessica Palacios [employer] Unavailable Nila Richards MD Unavailable Allergies Active Allergy Reactions Criticality Noted Date Comments Cat Dander Itching,Swelling,Oth er (see Comments) High 05/25/2018 Itching and watery eye and swelling of the eyes Other Rash High 05/25/2018 ADHESIVE TAPE ---RASH -BLOTCH; ok to have paper tape Medications Aspirin 81 MG Tablet Take 81 mg by mouth every morning. Active atorvastatin (LIPITOR) 40 MG TabletIndications :Mixed hyperlipidemia TAKE 1 TABLET BY MOUTH EVERY DAY 90 Tablet 3 024 Active lisinopril (PRINIVIL, ZESTRIL) 20 MG TabletIndications :Hypertension, essential TAKE 1 TABLET BY MOUTH EVERY DAY 90 Tablet 3 024 Active Additional Information Patient taking differently:20 mg OralEVERY MORNING, Reported on 09/23/2024 escitalopram (LEXAPRO) 10 MG TabletIndications :Anxiety and depression TAKE 1 TABLET BY MOUTH EVERY DAY 90 Tablet 3 025 Active levothyroxine (SYNTHROID) 125 MCG TabletIndications :Hypothyroidism due to acquired atrophy of thyroid TAKE 1 TABLET BY MOUTH EVERY DAY 90 Tablet 3 025 Active verapamil (CALAN,ISOPTIN) 120 MG TabletIndications :Hypertension, essential TAKE 1 TABLET BY MOUTH THREE TIMES A DAY 270 Tablet 3 025 Active cloNIDine (CATAPRES) 0.1 MG TabletIndications :Hypertension, essential TAKE 1 TABLET BY MOUTH THREE TIMES A DAY 270 Tablet 1 025 Active fluticasone (FLONASE) 50 MCG/ACT Suspension SPRAY 1-2 SPRAYS IN EACH NOSTRIL DAILY DIRECTED 48 mL 2 025 Active fluticasone (FLONASE) 50 MCG/ACT Suspension SPRAY 1-2 SPRAYS IN EACH NOSTRIL EVERY DAY DIRECTED 48 mL 2 025 2024 Discontinued Active Problems Problem Noted Date Diagnosed Date [...] Encounters Date Type Department Care Team Description 04/26/2025 Nurse Triage [facility] [address] [place] [phone] Devonte Garza MD Cough 04/20[facility]2025 [facility] [address] [place] [phone] Devonte Garza MD Letter for School/Work 04/[facility] [id number] [place] [phone] Devonte Garza MD Medication Refill 03/02/2025 Telephone [facility] [address] [place] [phone] Devonte Garza MD Form Completion from Last 3 Months Immunizations Immunization Administration [...] 0.6 oz pur e alcohol) 1x weekly; [employer] Answer Date Recorded In the past 12 months has [employer], gas, oil, or water [employer] threatened to shut off services in your home? Patient declined 09/23/2024 Social Connection and Isolation Panel Answer Date Recorded In a typical week, how many times do you talk on the phone with family, friends, or neighbors? Patient declined 09/23/2024 How often do you get togethe r with friends or relatives? Patient declined 09/23/2024 How often do you attend roman catholic or jew serv ices? Patient declined 09/23/2024 Do you belong to any clubs o r organizations such as roman catholic groups, unions, fraternal or athletic groups, or [...] Recorded Total Score - Questions 1-9 0 12/2024 [facility] - Occup[facility] Stress [...] time in the past 12 m [facility], were you homeless or living in a [...] Primary Care - [place] [address] [place] [phone] Devonte Garza MD [address] [place], [place] [id number] Health Maintenance Due Date Last Done Comments DEXA Bone Density 1955 Pneumococcal Immunization (5 0+ years) (1 of 2 - PCV) 1973 Cologuard 1999 Lung Cancer Screening 02/21/2004 Respiratory Syncytial Virus (RSV) Immunization (Adult) (1 - Risk 50-74 years 1-dose series) 02/21/2004 Zoster Immunization (1 of 2) 02/21/2004 Hepatitis B Immunization (2 of 3 - Hep B Twinrix 3-dose series) 11/16/2013 10/19/2013 Medicare Initial AWV G0438 02/01/2020 Td Immunization Every 10 Yea rs (Adults With 1 Tdap) 06/02/2020 06/02/2010 Immunochemical Fecal Occult Blood 02/08/2022 02/08/2021 Mammogram 10/08/2023 10/07/2022, 07/25/2020, 07/27/2018 Colonoscopy 02/09/2024 02/08/2019, 12/10/2016, 12/10/2016 Colorectal Cancer Screening 02/09/2024 Influenza Immunization (#1) 2025 05/15/2020 SARS-COV-2 Immunization ( season) 2025 06/30/2020 Hepatitis C Virus (HCV) [...] 0.42 <1 S/CO 09/07/2024 10:27 PM CDT [facility] Comment: Signal/Cutoff ratio < 0.79 is Nondetected Signal/Cutoff ratio 0.80-0.99 is Grayzone Signal/Cutoff ratio > 0.99 is Detected Supplemental assays are recommended if signal/cutoff ratio is >/=1.00. Signal/cutoff ratio result >/= 5.00 is 97% predictive of positivity for recombinant immunoblot assay (RIBA) and will be reported to the [place] Department of Public Health as required. Blood Venipuncture / Unknown 09/07/2024 11:24 AM CDT 09/07/2024 11:24 AM CDT us Devonte Garza MD CHEMISTRY ORDERABLES Adamaris cartwright Result [facility] [address] [place] [address], [place] * ALTA SCREENING BILATERAL DIGITAL W CAD [...] is made to exams dated: 07/25/2020, 07/27/2018 [facility], and 05/20/2009 [facility]. BREAST TISSUE:The tissue of both breasts [...] exam. Electronically signed by: Karl ford/tramaine:10/07/2022 14:00:38 Network Diagnostic Support Specialist(s): RT Mark(R)(M), [facility] letter sent: Normal Exam Reading location: [facility]: 1 Negative Procedure Note Karl Bridges [...] is made to exams dated: 07/25/2020, 07/27/2018 [facility], and 05/20/2009 [facility]. BREAST TISSUE:The tissue of both breasts [...] exam. Electronically signed by: Karl ford/tramaine:10/07/2022 14:00:38 Network Diagnostic Support Specialist(s): RT Mark(R)(M), [facility] letter sent: Normal Exam Reading location: [facility]: 1 Negative us Devonte Garza MD IMG MAMMO ORDERABLES Adamaris l Result * STOOL, OCCULT BLOOD, DIAGNOSTIC (02/08/2021 12:29 PM CDT) OCCULT BLOOD DIAG Negative Negative 02/08/2021 12:50 PM CDT [facility] Stool STOOL SPECIMEN / Unknown Non-Phlebotomy Collection / Unknown 02/08/2021 12:29 PM CDT 02/08/2021 12:44 PM CDT us Devonte Garza MD BODY FLUIDS & STOOLS ORDE RUSSELL Final Result [facility] [address] [place] [address] * COLONOSCOPY (12/10/2016) us Marga Howard MD PROCEDURE/MINOR SURGICAL OR DERABLES Final Result from Last 3 Months or Most Recently Relevant to Health Maintenance Insurance MEDICARE C [facility] Care Teams Air Export Coordinator Relationship Specialty Start Date End Date Devonte Garza MD [address] [place] [address] PCP - General Internal Medicine 06/01/18 Patricio Howard MD [address] [place] [address] Consulting Physician Vascular Surgery 06/01/18 Jessica Palacios, [employer] [address] [place] [id number] Consulting Physician Obstetrics & Gynecology 05/15/20 Nila Richards MD [address] [facility] [address] [place] [id number] Consulting Physician Cardiovascular Disease - Cardiology 07/08/22
--- OUTSIDE RECORDS SUMMARY | 2025-04-26 17:31 | XMS_ITS | Data Portability ---
Author Organization [facility]ITALAutumnFed[facility] Address [address] [place] [address] Care Team Providers Care Physical Chemistry Professor Name Role Phone MOODY RAI Primary Care Provider SHILOH MAURER Gaming Director Assessment No assessment recorded. Plan of Treatment Reminders Order Date Submit Date Provider Last Modified By Organization Details Last Modified Time Details Appointments None recorded. Lab CBC 2017 018 [facility], [address] [facility] [address], [address], 8 06:05:13 TSH, ultra-sensi tive, serum 2017 018 [facility], [address], [address], 8 06:05:15 lipid panel, serum 2017 018 [facility], [address] [place] [address], [address], 8 06:05:14 CMP, serum or plasma 2017 018 [facility], 102 [facility], [facility], [place], [address], 8 06:05:13 HbA1c (hemoglobin A1c), blood 2017 018 [facility], 102 [facility], [address], [place], [address], 8 06:05:15 HIV 1+2 AB + HIV 1 p24 Ag, qualitative immunoassay , serum 2017 018 [facility], 102 [facility], [facility], [place], [address], 8 06:06:50 HBsAg (hepatitis B surface Ag), EIA, serum 2017 018 [facility], [address] [facility], [facility], [place], [address], 8 06:06:51 hepatitis C Ab, signal-to-c utoff, serum or plasma 2017 018 [facility], 102 [facility], [facility], [place], [address], 8 06:06:50 RPR (rapid plasma reagin), serum 2017 018 [facility], 102 [facility], [facility], [place], [address], 8 06:06:49 bacterial vaginosis + vaginitis panel, vaginal 2017 018 [facility], 102 [facility], [facility], [place], [address], 8 06:06:49 Referral proctology referral - General surgery referral 2017 018 [email or web address] 7 Not available 8 15:46:31 Procedures None recorded. Surgeries None recorded. Imaging MAMMO, screening, digital, bilateral 2017 018 [email or web address] 7 Not available 8 15:54:47 Medication Orders terconazole 0.8 % vaginal cream 2017 018 [facility], [address] [place], [address], 8 12:56:04 Zithromax Z-Charlie 250 mg tablet [address] [facility], [address] [place], [address], 8 14:59:20 Medrol (Charlie) 4 mg tablets in a dose pack [address] [facility], [address] [place], [address], 8 15:00:25 Ventolin HFA 90 mcg/actuati on aerosol inhaler 2017 018 [facility], [address] [place] [address], [address], 8 12:56:14 Patient TargetsNo targets recorded. Patient Instructions Encounter Date Encounter Id Patient Instructions Last Modified By Organization Details Last Modified Time 08/15/2017 [id number] pt to keep f/u nsuthan Not available 08/15/2017 15:19:39 09/01/2017 [id number] advised to quit smoking nsuthan Not available 09/01/2017 11:09:31 keep f/u nsuthan Not available 2017 11:10:15 10/06/2017 [id number] hemorrhoids: car e instructions Not available 10/06/2017 15:41:01 learning about breast cancer screening Not available 10/06/2017 15:41:01 11/10/2017 [id number] candidiasis: car e instructions Not available 11/10/2017 11:30:16 01/06/2018 [id number] f/u in 3 month nsuthan Not available 01/06/2018 13:03:02 Reason for Referral Proctology Referral for Exte rnal hemorrhoids General surgery referral Referring Physician: Shiloh Maurer, EXPLOSIVES OPERATOR, Encounter Date: 10/06/2017 Results Created Date Observation Date Name Description Value Unit Range Abnormal Flag Note LastModifiedBy Organization Detail LastModifiedTime 09/02/19 18 09/02/2017 TSH + free T4, serum TSH 0.274 uIU/m L 0.450- 4.500 below low normal Not Available [facility] ([facility]) [address] [facility] [place], [address], 09/02/2017 06:05:51 09/02/19 18 09/02/2017 TSH + free T4, serum T4,free(dire ct) 2.17 NG/dL 0.82-1 .77 above high normal Not Available [facility] ([facility]) [address] [facility] [place], [address], 09/02/2017 06:05:51 09/02/19 18 09/02/2017 CMP, serum or plasm a glucose 87 mg/dL 65-99 Not Available [facility] ([facility]) [address] [facility] [place], [address], 09/02/2017 06:05:52 09/02/19 18 09/02/2017 CMP, serum or plasm a BUN 31 mg/dL 8-27 above high normal Not Available [facility] ([facility]) [address] [facility] [place], [address], 09/02/2017 06:05:52 09/02/19 18 09/02/2017 CMP, serum or plasm a creatinine 1.07 mg/dL 0.57-1 .00 above high normal Not Available [facility] ([facility]) [address] [place], [address], 09/02/2017 06:05:52 09/02/19 18 09/02/2017 CMP, serum or plasm a eGFR if nonafricn AM 55 mL/mi n/1.7 3 >59 below low normal Not Available [facility] ([facility]) [address] [facility] [place], [address], 09/02/2017 06:05:52 09/02/19 18 09/02/2017 CMP, serum or plasm a eGFR if africn AM 64 mL/mi n/1.7 3 >59 Not Available [facility] ([facility]) [address] [place], [address], 09/02/2017 06:05:52 09/02/19 18 09/02/2017 CMP, serum or plasm a BUN/creatini ne ratio 29 12-28 above high normal Not Available [facility] ([facility]) [address] [facility] [place], [address], 09/02/2017 06:05:52 09/02/19 18 09/02/2017 CMP, serum or plasm a sodium 141 mmol/ L 134-14 4 Not Available [facility] ([facility]) [address] [facility] [place], [address], 09/02/2017 06:05:52 09/02/19 18 09/02/2017 CMP, serum or plasm a potassium 3.6 mmol/ L 3.5-5. 2 Not Available [facility] ([facility]) [address] [facility] [place], [address], 09/02/2017 06:05:52 09/02/19 18 09/02/2017 CMP, serum or plasm a chloride 99 mmol/ L 96-106 Not Available [facility] ([facility]) [address] [facility] [place], [address], 09/02/2017 06:05:52 09/02/19 18 09/02/2017 CMP, serum or plasm a carbon dioxide, total 23 mmol/ L 18-29 Not Available [facility] ([facility]) [address] [place], [address], 09/02/2017 06:05:52 09/02/19 18 09/02/2017 CMP, serum or plasm a calcium 9.2 mg/dL 8.7-10 .3 Not Available [facility] ([facility]) [address] [facility] [place], [address], 09/02/2017 06:05:52 09/02/19 18 09/02/2017 CMP, serum or plasm a protein, total 6.7 g/dL 6.0-8. 5 Not Available [facility] ([facility]) [address] [place], [address], 09/02/2017 06:05:52 09/02/19 18 09/02/2017 CMP, serum or plasm a albumin 4.3 g/dL 3.6-4. 8 Not Available [facility] ([facility] [address] [place], [address], 09/02/2017 06:05:52 09/02/19 18 09/02/2017 CMP, serum or plasm a globulin, total 2.4 g/dL 1.5-4. 5 Not Available [facility] ([facility]) [address] [facility] [place], [address], 09/02/2017 06:05:52 09/02/19 18 09/02/2017 CMP, serum or plasm a A/G ratio 1.8 1.2-2. 2 Not Available [facility] ([facility]) [address] [facility] [place], [address], 09/02/2017 06:05:52 09/02/19 18 09/02/2017 CMP, serum or plasm a bilirubin, total 0.5 mg/dL 0.0-1. 2 Not Available [facility] ([facility]) [address] [facility] [place], [address], 09/02/2017 06:05:52 09/02/19 18 09/02/2017 CMP, serum or plasm a alkaline phosphatase 74 IU/L 39-117 Not Available [facility] ([facility]) [address] [facility] [place], [address], 09/02/2017 06:05:52 09/02/1909/02/2017 CMP, serum or plasm a AST (SGOT) 14 IU/L 0-40 Not Available [facility] ([facility]) [address] [facility] [place], [address], 09/02/2017 06:05:52 09/02/19 18 09/02/2017 CMP, serum or plasm a ALT (SGPT) 7 IU/L 0-32 Not Available [facility] ([facility]) [address] [place], [address], 09/02/2017 06:05:52 09/02/19 18 09/02/2017 CBC WBC 5.9 x10e3 /uL 3.4-10 .8 Not Available [facility] ([facility]) [address] [place], [address], 09/02/2017 06:05:52 09/02/19 18 09/02/2017 CBC RBC 5.33 x10e6 /uL 3.77-5 .28 above high normal Not Available [facility] ([facility]) [address] [facility] [place], [address], 09/02/2017 06:05:52 09/02/19 18 09/02/2017 CBC hemoglobin 11.3 g/dL 11.1-1 5.9 Not Available [facility] ([facility]) [address] [facility] [place], [address], 09/02/2017 06:05:52 09/02/1909/02/2017 CBC hematocrit 35.2 % 34.0-4 6.6 Not Available [facility] ([facility]) [address] [facility] [place], [address], 09/02/2017 06:05:52 09/02/1909/02/2017 CBC MCV 66 fL 79-97 below low normal Not Available [facility] ([facility]) [address] [facility] [place], [address], 09/02/2017 06:05:52 09/02/1909/02/2017 CBC MCH 21.2 pg 26.6-3 3.0 below low normal Not Available [facility] ([facility]) [address] [facility] [place], [address], 09/02/2017 06:05:52 09/02/19 18 09/02/2017 CBC MCHC 32.1 g/dL 31.5-3 5.7 Not Available [facility] ([facility]) [address] [facility] [place], [address], 09/02/2017 06:05:52 09/02/19 18 09/02/2017 CBC RDW 15.5 % 12.3-1 5.4 above high normal Not Available [facility] ([facility]) [address] [facility] [place], [address], 09/02/2017 06:05:52 09/02/19 18 09/02/2017 CBC platelets 272 x10e3 /uL 150-37 9 Not Available [facility] ([facility]) [address] [facility] [place], [address], 09/02/2017 06:05:52 09/02/19 18 09/02/2017 CBC NRBC BOILER HOUSE OPERATOR Not Available [facility] ([facility]) [address] [facility] [place], [address], 09/02/2017 06:05:52 09/02/19 18 09/02/2017 lipid panel , serum cholesterol, total 147 mg/dL 100-19 9 Not Available [facility] ([facility]) [address] [facility] [place], [address], 09/02/2017 06:05:53 09/02/19 18 09/02/2017 lipid panel , serum triglyceride s 82 mg/dL 0-149 Not Available [facility] ([facility]) [address] [facility] [place], [address], 09/02/2017 06:05:53 09/02/19 18 09/02/2017 lipid panel , serum HDL cholesterol 40 mg/dL >39 Not Available [facility] ([facility]) [address] [facility] [place], [address], 09/02/2017 06:05:53 09/02/19 18 09/02/2017 lipid panel , serum VLDL cholesterol ihsan 16 mg/dL 5-40 Not Available [facility] ([facility]) [address] [place], [address], 09/02/2017 06:05:53 09/02/19 18 09/02/2017 lipid panel , serum LDL cholesterol calc 91 mg/dL 0-99 Not Available [facility] ([facility]) [address] [place], [address], 09/02/2017 06:05:53 09/02/19 18 09/02/2017 lipid panel , serum comment: BOILER HOUSE OPERATOR Not Available [facility] ([facility]) [address] [place], [address], 09/02/2017 06:05:53 10/07/19 18 10/08/2017 bacte rial vagin osis + vagin itis panel , vagin al trich vag by EWELINA Negati ve negati ve Not Available [facility] ([facility]) [address] [place], [address], 10/10/2017 06:06:49 10/07/19 18 10/08/2017 bacte rial vagin osis + vagin itis panel , vagin al chlamydia trachomatis, EWELINA Negati ve negati ve Not Available [facility] ([facility]) [address] [place], [address], 10/10/2017 06:06:49 10/07/19 18 10/08/2017 bacte rial vagin osis + vagin itis panel , vagin al neisseria gonorrhoeae, EWELINA Negati ve negati ve Not Available [facility] ([facility]) [address] [place], [address], 10/10/2017 06:06:49 10/07/19 18 10/09/2017 bacte rial vagin osis + vagin itis panel , vagin al atopobium vaginae Low - 0 score Not Available [facility] ([facility]) [address] [place], [address], 10/10/2017 06:06:49 10/07/19 18 10/09/2017 bacte rial vagin osis + vagin itis panel , vagin al bvab 2 Low - 0 score Not Available [facility] ([facility]) [address] [facility], [place], [address], 10/10/2017 06:06:49 10/07/19 18 10/09/2017 bacte rial vagin osis + vagin itis panel , vagin al megasphaera 1 Low - 0 score Calcu late total score by chico isidro the 3 indiv idual bacte rial vagin osis (BV) marke r score s toget her. Total score is inter prete d as follo ws: Total score 0-1: Indic ates the absen ce of BV. Total score 2: Indet ermin ate for BV. Addit ional clini ihsan data shoul d be evalu ated to estab jabier a diagn osis. Total score 3-6: Indic ates the prese nce of BV. This test was devel oped and its perfo rmanc e abelino cteri stics deter mined by [facility]. It has not been clear ed or appro justina by the Food and Drug Admin istra tion. The FDA has deter mined that such clear ance or appro mary is not neces franny. Not Available [facility] ([facility]) [address] [facility], [place], [address], 10/10/2017 06:06:49 10/07/19 18 10/09/2017 bacte rial vagin osis + vagin itis panel , vagin al sara albicans, EWELINA Positi ve negati ve abnormal Not Available [facility] ([facility]) [address] [facility], [place], [address], 10/10/2017 06:06:49 10/07/19 18 10/09/2017 bacte rial vagin osis + vagin itis panel , vagin al sara glabrata, EWELINA Negati ve negati ve This test was devel oped and its perfo rmanc e abelino cteri stics deter mined by [facility]. It has not been clear ed or appro justina by the Food and Drug Admin istra tion. The FDA has deter mined that such clear ance or appro mary is not necmark rayy. Not Available [facility] ([facility]) [address] [facility], [place], [address], 10/10/2017 06:06:49 10/07/19 18 10/07/2017 RPR (rapi d plasm a reagi n), serum RPR Non Reacti ve non reacti ve Not Available [facility] ([facility]) [address] [facility], [place], [address], 10/10/2017 06:06:49 10/07/19 18 10/07/2017 HIV 1+2 AB + HIV 1 p24 Ag, quali tativ e immun oassa y, serum HIV screen 4TH generation wrfx Non Reacti ve non reacti ve Not Available [facility] ([facility]) [address] [facility], [place], [address], 10/10/2017 06:06:50 10/07/19 18 10/06/2017 hepat itis C Ab, signa l-to- cutof f, serum or plasm a comment: Commen t Non react graham HCV antib venita scree n is consi stent with no HCV infec tion, unles s recen t infec tion is suspe cted or other evide nce exist s to indic ate HCV infec tion. Not Available [facility] ([facility]) [address] [facility], [place], [address], 10/10/2017 06:06:50 10/07/19 18 10/07/2017 hepat itis C Ab, signa l-to- cutof f, serum or plasm a HCV Ab <0.1 s/co_ ratio 0.0-0. 9 Not Available [facility] ([facility]) [address] [place], [address], 10/10/2017 06:06:50 10/07/19 18 10/07/2017 HBsAg (hepa titis B surfa ce Ag), EIA, serum HBsAg screen Negati ve negati ve Not Available [facility] ([facility]) [address] [place], [address], 10/10/2017 06:06:51 04/02/20 18 04/03/2018 CMP, serum or plasm a glucose 88 mg/dL 65-99 Not Available [facility] ([facility]) [address] [place], [address], 04/03/2018 06:05:13 04/02/20 18 04/03/2018 CMP, serum or plasm a BUN 30 mg/dL 8-27 above high normal Not Available [facility] ([facility]) [address] [place], [address], 04/03/2018 06:05:13 04/02/20 18 04/03/2018 CMP, serum or plasm a creatinine 1.17 mg/dL 0.57-1 .00 above high normal Not Available [facility] ([facility]) [address] [place], [address], 04/03/2018 06:05:13 04/02/20 18 04/03/2018 CMP, serum or plasm a eGFR if nonafricn AM 49 mL/mi n/1.7 3 >59 below low normal Not Available [facility] ([facility]) [address] [place], [address], 04/03/2018 06:05:13 04/02/20 18 04/03/2018 CMP, serum or plasm a eGFR if africn AM 57 mL/mi n/1.7 3 >59 below low normal Not Available [facility] ([facility]) [address] [place] [address], [address], 04/03/2018 06:05:13 04/02/20 18 04/03/2018 CMP, serum or plasm a BUN/creatini ne ratio 26 12-28 Not Available [facility] ([facility]) [address] [place], [address], 04/03/2018 06:05:13 04/02/20 18 04/03/2018 CMP, serum or plasm a sodium 140 mmol/ L 134-14 4 Not Available [facility] ([facility]) [address] [place], [address], 04/03/2018 06:05:13 04/02/20 18 04/03/2018 CMP, serum or plasm a potassium 3.8 mmol/ L 3.5-5. 2 Not Available [facility] ([facility]) [address] [place], [address], 04/03/2018 06:05:13 04/02/20 18 04/03/2018 CMP, serum or plasm a chloride 99 mmol/ L 96-106 Not Available [facility] ([facility]) [address] [place], [address], 04/03/2018 06:05:13 04/02/20 18 04/03/2018 CMP, serum or plasm a carbon dioxide, total 27 mmol/ L 20-29 Not Available [facility] ([facility]) [address] [place], [address], 04/03/2018 06:05:13 04/02/20 18 04/03/2018 CMP, serum or plasm a calcium 9.1 mg/dL 8.7-10 .3 Not Available [facility] ([facility]) [address] [place], [address], 04/03/2018 06:05:13 04/02/20 18 04/03/2018 CMP, serum or plasm a protein, total 6.7 g/dL 6.0-8. 5 Not Available [facility] ([facility]) [address] [place], [address], 04/03/2018 06:05:13 04/02/20 18 04/03/2018 CMP, serum or plasm a albumin 4.4 g/dL 3.6-4. 8 Not Available [facility] ([facility]) [address] [place], [address], 04/03/2018 06:05:13 04/02/20 18 04/03/2018 CMP, serum or plasm a globulin, total 2.3 g/dL 1.5-4. 5 Not Available [facility] ([facility]) [address] [place], [address], 04/03/2018 06:05:13 04/02/20 18 04/03/2018 CMP, serum or plasm a A/G ratio 1.9 1.2-2. 2 Not Available [facility] ([facility]) [address] [place], [address], 04/03/2018 06:05:13 04/02/20 18 04/03/2018 CMP, serum or plasm a bilirubin, total 0.6 mg/dL 0.0-1. 2 Not Available [facility] ([facility]) [address] [place], [address], 04/03/2018 06:05:13 04/02/20 18 04/03/2018 CMP, serum or plasm a alkaline phosphatase 68 IU/L 39-117 Not Available [facility]) [address] [place], [address], 04/03/2018 06:05:13 04/02/20 18 04/03/2018 CMP, serum or plasm a AST (SGOT) 19 IU/L 0-40 Not Available [facility] ([facility]) [address] [place], [address], 04/03/2018 06:05:13 04/02/20 18 04/03/2018 CMP, serum or plasm a ALT (SGPT) 6 IU/L 0-32 Not Available [facility] ([facility]) [address] [place], [address], 04/03/2018 06:05:13 04/02/20 18 04/02/2018 CBC WBC 5.6 x10e3 /uL 3.4-10 .8 Not Available [facility] ([facility]) [address] [place], [address], 04/03/2018 06:05:13 04/02/20 18 04/02/2018 CBC RBC 5.12 x10e6 /uL 3.77-5 .28 Not Available [facility] ([facility]) [address] [place], [address], 04/03/2018 06:05:13 04/02/20 18 04/02/2018 CBC hemoglobin 10.7 g/dL 11.1-1 5.9 below low normal Not Available [facility] ([facility]) [address] [facility] [place], [address], 04/03/2018 06:05:13 04/02/20 18 04/02/2018 CBC hematocrit 33.2 % 34.0-4 6.6 below low normal Not Available [facility] ([facility]) [address] [place], [address], 04/03/2018 06:05:13 04/02/20 18 04/02/2018 CBC MCV 65 fL 79-97 below low normal Not Available [facility] ([facility]) [address], [address], 04/03/2018 06:05:13 04/02/20 18 04/02/2018 CBC MCH 20.9 pg 26.6-3 3.0 below low normal Not Available [facility] ([facility]) [address] [facility] [place], [address], 04/03/2018 06:05:13 04/02/20 18 04/02/2018 CBC MCHC 32.2 g/dL 31.5-3 5.7 Not Available [facility] ([facility]) [address] [place], [address], 04/03/2018 06:05:13 04/02/20 18 04/02/2018 CBC RDW 16.1 % 12.3-1 5.4 above high normal Not Available [facility] ([facility]) [address], [place], [address], 04/03/2018 06:05:13 04/02/20 18 04/02/2018 CBC platelets 258 x10e3 /uL 150-37 9 Not Available [facility] ([facility]) [address] [place], [address], 04/03/2018 06:05:13 04/02/20 18 04/02/2018 CBC NRBC BOILER HOUSE OPERATOR Not Available [facility] ([facility] [address] [facility] [place], [address], 04/03/2018 06:05:13 04/02/20 18 04/03/2018 lipid panel , serum cholesterol, total 155 mg/dL 100-19 9 Not Available [facility] ([facility]) [address] [place], [address], 04/03/2018 06:05:14 04/02/20 18 04/03/2018 lipid panel , serum triglyceride s 81 mg/dL 0-149 Not Available [facility] ([facility]) [address] [place], [address], 04/03/2018 06:05:14 04/02/20 18 04/03/2018 lipid panel , serum HDL cholesterol 42 mg/dL >39 Not Available [facility] ([facility]) [address] [place], [address], 04/03/2018 06:05:14 04/02/20 18 04/03/2018 lipid panel , serum VLDL cholesterol ihsan 16 mg/dL 5-40 Not Available [facility] ([facility]) [address] [place], [address], 04/03/2018 06:05:14 04/02/20 18 04/03/2018 lipid panel , serum LDL cholesterol calc 97 mg/dL 0-99 Not Available [facility] ([facility]) [address] [facility], [place], [address], 04/03/2018 06:05:14 04/02/20 18 04/03/2018 lipid panel , serum comment: BOILER HOUSE OPERATOR Not Available [facility] ([facility]) [address] [facility], [place], [address], 04/03/2018 06:05:14 04/02/20 18 04/03/2018 HbA1c (hemo globi n A1c), blood hemoglobin A1C 5.9 % 4.8-5. 6 above high normal Predi abete s: 5.7 - 6.4 Diabe angela: >6.4 Glyce vladimir contr ol for adult s with diabe angela: <7.0 Not Available [facility] ([facility]) [address] [facility], [place], [address], 04/03/2018 06:05:14 04/02/20 18 04/03/2018 TSH, ultra -sens itive , serum TSH 0.342 uIU/m L 0.450- 4.500 below low normal Not Available [facility] ([facility]) [address] [place], [address], 04/03/2018 06:05:15 04/02/20 18 04/06/2018 verba l order see below: Commen t: Pleas e provi de reque sted infor jocelynn de león and fax to [phone]. [place] ation s requi res a writt en and juan d reque st be forwa rded to a labor atory follo wing a verba l order of a labor atory test. Pleas e kiesha t us to meet this requi remen t and to compl ete our recor ds. Date: ICD- Diagn osis Code( s):__ _ Physi marcin or Autho rized Desig nee:_ _ Pleas e Print Physi marcin or Autho rized Desig nee Signa ture: Your Signa ture Confi otis Your Order Of The Test( s) Schuyler rodriguez Not Available [facility] ([facility]) [address] [place], [address], 04/06/2018 14:11:36 04/02/20 18 04/06/2018 verba l order additional test(s) requested Commen t: Test( s) added per Dr Boo de león at [facility] 04-06 Logge d by Yelitza Carreno Test# 53558 1 Iron and TIBC Test# [id number] 8 Rosanne tin, Serum Test# 56707 0 Vitam in B12 and Folat e Diagn osis Codes Provi ded D64.9 Not Available [facility] ([facility]) [address] [place], [address], 04/06/2018 14:11:36 04/02/20 18 04/06/2018 iron + total iron- virginie ng capac ity (TIBC ), serum iron bind.cap.(TI BC) 300 ug/dL 250-45 0 Not Available [facility] ([facility]) [address] [place], [address], 04/07/2018 12:14:22 04/02/20 18 04/06/2018 iron + total iron- virginie ng capac ity (TIBC ), serum UIBC 204 ug/dL 118-36 9 Not Available [facility] ([facility]) [address] [place] [address], [address], 04/07/2018 12:14:22 04/02/20 18 04/06/2018 iron + total iron- virginie ng capac ity (TIBC ), serum iron 96 ug/dL 27-139 Not Available [facility] ([facility]) [address] [place] [address], [address], 04/07/2018 12:14:22 04/02/20 18 04/06/2018 iron + total iron- virginie ng capac ity (TIBC ), serum iron saturation 32 % 15-55 Not Available [facility] ([facility]) [address] [place] [address], [address], 04/07/2018 12:14:22 04/02/20 18 04/07/2018 vitam in B12 + folat e, serum or blood vitamin B12 634 pg/mL 232-12 45 Not Available [facility] ([facility]) [address] [place] [address], [address], 04/07/2018 12:14:23 04/02/20 18 04/07/2018 vitam in B12 + folat e, serum or blood folate (folic acid), serum 11.8 NG/mL >3.0 A serum folat e katherin ntrat ion of less than 3.1 ng/mL is consi dered to repre sent clini ihsan defic iency . Not Available [facility] ([facility]) [address] [place] [address], [address], 04/07/2018 12:14:23 04/02/20 18 04/07/2018 rosanne tin, serum or plasm a ferritin, serum 209 NG/mL 15-150 above high normal Not Available [facility] ([facility]) [address] [facility] [place], [address], 04/07/2018 12:14:24 04/02/20 18 04/07/2018 writt en autho rizat ion written authorizatio sarthak Keenan en Autho rizat ion Recei justina. Autho rizat ion recei justina from KEV GONZALEZ [facility] 04-07 Logge d by Iris evans Not Available [facility] ([facility]) [address] [facility], [place], [address], 04/07/2018 12:14:24 Result Notes None recorded. Problems Name Problem SNOMED Code Status Onset Date Resolution Date Notes Provider Name and Address Organization Details Recorded Time Hypothyr oidism 45144065 Active Moody Rai MD Attn: Aria dwaine,[address] [facility], [place], [address], [facility] 6 14:56:45 [facility] hyperten hank 32266542 Active Moody Rai MD Attn: Aria isidro,[address] [facility], [place], [address], [place] [facility] 6 14:53:07 Hyperlip idemia 22238411 Active Moody Rai MD Attn: Aria dwaine,[address] [facility], [place], [address], [place] [facility] 6 14:53:07 Depressi ve disorder 77867136 Completed 04/23/2016 Moody Rai MD Attn: Aria dwaine,[address] [facility], [place], [address], [place] [facility] 6 13:01:49 Renal failure syndrome 20934602 Active [facility] nephrolog ist Moody Rai MD Attn: Aria isidro,[address] [facility], [place], [address], [place] [facility] 6 14:53:07 Upper respirat ory infectio n 41930179 Completed 04/23/2016 Moody Rai MD Attn: Aria dwaine,[address] [facility], [place], [address], [place] [facility] 6 13:01:36 Acute bronchit is 59090839 Completed 04/23/2016 oMody Ria MD Attn: Aria dwaine,[address] [facility], [place], [address], [place] [facility] 6 13:02:45 Anxiety 06685224 Completed 06/13/2016 Moody Rai MD Attn: Aria dwaine,[address] [facility], [place], [address], [place] [facility] 7 15:03:48 Atrophy of kidney 811055953 Active [facility] nephrolog ist Moody Rai MD Attn: Aria dwaine,[address] [facility], [place], [address], [place] [facility] 6 14:53:07 Mixed anxiety and depressi ve disorder 371819527 Active Moody Rai MD Attn: Aria isidro,[address] [facility], [place], [address], [place] [facility] 6 14:53:07 Carotid atherosc lerosis 057672551 Active Moody Rai MD Attn: Aria dwaine,[address] [facility], [place], [address], [place] [facility] 6 14:53:07 Peripher al vascular disease 902738907 Active with abdominal aneurysm -seeing vascular surgeon Moody Rai MD Attn: Aria isidro,[address] [place], [address], [place] [facility] 6 13:02:27 Hypokale thao 23490880 Active 2016 Moody Rai MD Attn: Aria isidro,[address] [place], [address], [place] [facility] 7 10:24:09 Problem Notes None recorded. Procedures Surgical History Date Name Laterality Status Provider Name and Address Organization Details Recorded Time 7 Colonoscopy thru stoma spx completed Moody Rai MD Attn: Accounting,[address], [place], [address], [facility] - [facility] 12/13/2016 13:22:17 4 Date of Last Pap Smear completed Yolie Charles [place] - [facility] 10/06/2017 15:02:51 Imaging Results None recorded. Procedure Notes None recorded. Medical Equipment None Reported. Allergies Allergen ID Allergen Name Allergen Category Reaction Reaction Severity Criticality Documentation Date Start Date Code Code System Note Provider Name and Address Organization Details Recorded Time 694685 adhesive tape environme nt,medica tion rash Not available Not available 10/06/2017 Yolie woo, [place] - [facility] 8 14:59:01 Medications Name Sig Start Date Stop Date Status Note LastModified by Organization Details LastModified Time telmisart an tab 80mgtelmi sartan active Not Available Not Available Not Available losartan pot tab 50mglosar michaels potassium active Not Available Not Available No t Available pravastat in tab 40mg active Not Available Not Available Not Available atorvasta tin calcium 40 mg tabs active Not Available Not Available Not Available pravastat in sodium 40 mg tabs active Not Available Not Available Not Available verapamil tab 180mg erverapam il hcl er 2 tabs po qday active Not Available Not Available No t Available clonidine hcl 0.1 mg tabs active Not Available Not Available Not Available pravastat in tab 40mgprava statin sodium active Not Available Not Available Not Available trazodone tab 50mgtrazo done hcl active Not Available Not Available Not Available levothyro valerie tab 150mcglev othyroxin e sodium active Not Available Not Available Not Available citalopra m hydrobrom antonina 20 mg tabs active Not Available Not Available Not Available ciproflox acn tab 500mgcipr ofloxacin hcl active Not Available Not Available Not Available hydrochlo rot cap 12.5mghyd rochlorot hiazide active Not Available Not Available Not Available levothyro valerie tab 137mcg active Not Available Not Available Not Available verapamil hcl er 180 mg cp24 active Not Available Not Available Not Available clonidine tab 0.1mgclon idine hcl active Not Available Not Available No t Available losartan/ hct tab 100-25los moustapha potassium /hydrochl orothiazi de active Not Available Not Available Not Available clonazepa m 0.5 mg tabs active Not Available Not Available Not Available metronida zol tab 500mgmetr onidazole active Not Available Not Available No t Available ventolin hfa aerventol in hfa active Not Available Not Available Not Available verapamil cap 180mg erverapam il hcl er active Not Available Not Available No t Available trazodone hcl 50 mg tabs active Not Available Not Available Not Available clonazepa m tab 0.5mgclon azepam active Not Available Not Available Not Available amoxicill in cap 500mgamox icillin active Not Available Not Available Not Available losartan potassium /hydrochl orothiazi de 100-25 mg tabs active Not Available Not Available Not Available verapamil tab 240mg erverapam il hcl er active Not Available Not Available No t Available citalopra m tab 20mgcital opram hydrobrom antonina active Not Available Not Available Not Available levothyro xine sodium 150 mcg tabs active Not Available Not Available Not Available losartan 50 mg tablet TAKE ONE TABLET BY MOUTH ONCE DAILY active Not Available Not Available No t Available amoxicill in 500 mg capsule active Not Available Not Available Not Available atorvasta tin 40 mg tablet TAKE 1 TABLET BY MOUTH ONCE DAILY active Not Available Not Available No t Available Augmentin 875 mg-125 mg tablet Take 1 tablet every 12 hours by oral route for 7 days. 06/18 completed Not Available Not Available Not Available levothyro xine 137 mcg tablet TAKE ONE TABLET BY MOUTH ONCE DAILY 09/02 completed Not Available Not Available Not Available clonidine HCl 0.1 mg tablet TAKE 1 TABLET BY MOUTH THREE TIMES DAILY active Not Available Not Available No t Available trazodone 50 mg tablet TAKE ONE TABLET BY MOUTH ONCE DAILY AT BEDTIME active Not Available Not Available No t Available azithromy sayra 250 mg tablet TAKE 2 TABLETS (500 MG) BY ORAL ROUTE ONCE DAILY FOR 1 DAY THEN 1 TABLET (250 MG) BY ORAL ROUTE ONCE DAILY FOR 4 DAYS 10/06 completed Not Available Not Available Not Available pravastat in 40 mg tablet TAKE ONE TABLET BY MOUTH ONCE DAILY AT BEDTIME active Not Available Not Available No t Available fluconazo le 150 mg tablet 01/06 completed Not Available Not Available Not Available hydrocodo ne 5 mg-acetam inophen 325 mg tablet active Not Available Not Available Not Available clonazepa m 0.5 mg tablet TAKE ONE TABLET BY MOUTH ONCE DAILY NEEDED active Not Available Not Available No t Available terconazo le 0.8 % vaginal cream INSERT 1 APPLICAT ORFUL VAGINALL Y ONCE DAILY 01/06 completed Not Available Not Available Not Available verapamil ER (SR) 180 mg tablet,ex tended release TAKE 1 TABLET BY MOUTH TWICE DAILY active Not Available Not Available No t Available Biaxin 500 mg tablet Take 1 tablet every 12 hours by oral route for 7 days. 07/01 completed Not Available Not Available Not Available metronida zole 500 mg tablet active Not Available Not Available No t Available ciproflox acin 500 mg tablet active Not Available Not Available No t Available sulfameth oxazole 800 mg-trimet hoprim 160 mg tablet active Not Available Not Available Not Available amoxicill in 500 mg tablet Take 1 tablet 3 times a day by oral route for 7 days. 2014 active Not Available Not Available Not Avai lable verapamil ER 180 mg 24 hr capsule,e xtended release 06/10 completed changed to tablets due to insuranc e coverage Not Available Not Available Not Available losartan 100 mg-hydroc hlorothia zide 25 mg tablet TAKE 1 TABLET BY MOUTH ONCE DAILY active Not Available Not Available No t Available ofloxacin 0.3 % ear drops INSTILL 10 DROPS (1.5 MG) INTO AFFECTED EAR(S) BY OTIC ROUTE 2 TIMES PER DAY 06/18 completed Not Available Not Available Not Available citalopra m 20 mg tablet Take 1 tablet every day by oral route for 30 days. 07/01 completed Not Available Not Available Not Available Micardis 80 mg tablet TAKE ONE TABLET BY MOUTH ONCE DAILY 08/23 completed Not Available Not Available Not Available levothyro xine 125 mcg tablet TAKE 1 TABLET BY MOUTH ONCE DAILY 04/07 completed Not Available Not Available Not Available levothyro xine 150 mcg tablet TAKE ONE TABLET BY MOUTH ONCE DAILY 04/23 completed Not Available Not Available Not Available hydrochlo rothiazid e 12.5 mg capsule active Not Available Not Available Not Available verapamil ER (SR) 240 mg tablet,ex tended release TAKE ONE TABLET BY MOUTH ONCE DAILY WITH FOOD 2014 active Not Available Not Available Not Avai lable Tylenol-C odeine #3 300 mg-30 mg tablet Take 1 tablet twice a day by oral route as needed. 06/18 completed Not Available Not Available Not Available methylpre dnisolone 4 mg tablets in a dose pack po as directed 10/06 completed Not Available Not Available Not Available fluoxetin e 20 mg capsule TAKE ONE CAPSULE BY MOUTH ONCE DAILY 01/06 completed stanley fox in the past Not Available Not Available Not Available fluticaso ne propionat e 50 mcg/actua tion nasal spray,germán pension Inhale 2 sprays every day by intranas al route. active Not Available Not Available No t Available levothyro xine 112 mcg tablet TAKE 1 TABLET BY MOUTH ONCE DAILY active Not Available Not Available No t Available Ventolin HFA 90 mcg/actua tion aerosol inhaler 2puff three times daily prn 01/06 completed Not Available Not Available Not Available escitalop megan 10 mg tablet TAKE 1 TABLET BY MOUTH ONCE DAILY active Not Available Not Available No t Available OraMagicR x mouthwash Benadryl / Maalox / Xylocain e at equal proporti ons -Take 10ml bid by mucous route. 06/18 completed Not Available Not Available Not Available Klor-Con M20 mEq tablet,ex tended release Take 1 tablet every day by oral route. 05/05 completed Not Available Not Available Not Available Aspir-81 po 1 tab daily active Not Available Not Available No t Available Vitals Date Recorded Body height Body mass index (BMI) Body weight Heart rate Respiratory rate Oxygen saturation Body temperature Systolic And Diastolic Provider Name and Address Organization Details Last Updated DateTime 8 170.18 cm 23.6 kg/m2 24719.6 5 g 96 /min 16 /min 97 % 97.9 [degF] 128/84 mm[Hg] NINI Martins [place] - [facility] 8 14:30:14 Date Recorded Systolic And Diastolic Provider Name and Address Organization Details Last Updated DateTime 09/01/2017 140/90 mm[Hg] Moody Rai MD Attn: Accounting,[address] [place], [address], [place] [facility] 09/01/2017 11:09:10 Date Recorded Body height Body mass index (BMI) Body weight Heart rate Respiratory rate Body temperature Oxygen saturation Provider Name and Address Organization Details Last Updated DateTime 8 170.18 cm 23.6 kg/m2 72935.0 9 g 76 /min 12 /min 97.9 [degF] 95 % Dorota Gonzalez [facility] 8 10:18:28 Date Recorded Body height Body mass index (BMI) Body weight Systolic And Diastolic Provider Name and Address Organization Details Last Updated DateTime 10/06/2017 170.18 cm 23.8 kg/m2 57214.04 g 138/86 mm[Hg] Yolie Charles [facility] 10/06/2017 14:58:00 Date Recorded Body height Body mass index (BMI) Body weight Systolic And Diastolic Provider Name and Address Organization Details Last Updated DateTime 11/10/2017 170.18 cm 23.6 kg/m2 32908.73 g 146/96 mm[Hg] Yolie Charles [facility] 11/10/2017 11:14:47 Date Recorded Body height Body mass index (BMI) Body weight Heart rate Respiratory rate Body temperature Oxygen saturation Systolic And Diastolic Provider Name and Address Organization Details Last Updated DateTime 8 170.18 cm 24.5 kg/m2 94056.2 1 g 71 /min 12 /min 98.4 [degF] 98 % 148/94 mm[Hg] Dorota Gonzalez [facility] 8 12:45:46 Social History Question Answer Notes LastModified by Organizat ion Details LastModified Time Tobacco Smoking Status Current Every Day Smoker Yolie Charles chilo [facility] 10/06/2017 15:08:17 Is Blood Transfusion Acceptable In An Emergency? Yes Information not available 10/06/2017 What Is Your Level Of Caffeine Consumption? Occasional Information not available 10/06/2017 How Much Tobacco Do You Chew? None Information not available 04/23/2016 What Type Of Diet Are You Following? REGULAR Information not available 04/23/2016 Which Illicit Or Recreational Drugs Have You Used? Denies Information not available 04/23/2016 Education 11 Information no t available 01/16/2017 Live Alone Or With Others? Alone Information not available 10/06/2017 Marital Status Single Informatio n not available 04/23/2016 What Was The Date Of Your Most Recent Tobacco Screening? 01/06/2018 Information not available 12/24/2018 How Many Children Do You Have? 1 Information not available 10/06/2017 Performs Monthly Self-breast Exam? Yes Information not available 10/06/2017 Do You Use Protection During Sex? No Information not available 10/06/2017 What Is Your Relationship Status? Single Information not available 10/06/2017 Seat Belts Used Routinely Yes Information not available 10/06/2017 Are You Sexually Active? Yes Information not available 10/06/2017 At What Age Did You Start Smoking Tobacco? 14 [email or web address] Information not available 04/26/2014 How Much Tobacco Do You Smoke? 0.5 PPD 5 -6 Cigs A Day Information not available 07/02/2017 General Stress Level Low Low - Med Information not available 05/05/2017 Do You Use Sunscreen Routinely? No Information not available 10/06/2017 How Many Years Have You Smoked Tobacco? 48 Information not available 10/06/2017 Sex: Unknown Functional Status Question Answer Note LastModified by Organizat ion Details LastModified Time What is your level of alcohol consumption? Occasional Information not available 04/23/2016 Are you currently employed? Yes Information not available 10/06/2017 What is your occupation? [employer] Information not available 08/20/2016 What is your exercise level? Occasional Information not available 04/23/2016 Mental Status None recorded. Family History Relationship Description Onset Age of this Age Resolved Age Notes LastModified by Organization Details LastModified Time Mother Disorder of thyroid gland [email or web address] Not available 2013 12:15:02 Sister Diabetes mellitus [email or web address] Not available 2013 12:15:02 Sister Disorder of thyroid gland [email or web address] Not available 2013 12:15:02 Sister Essential hypertension [email or web address] Not available 12:15:02 Sister Hypertensive disorder [place] Not available 2017 15:06:46 Sister Hypercholest erolemia [place] Not available 2017 15:08:04 Brother Diabetes mellitus [email or web address] Not available 2013 12:15:02 Brother Essential hypertension [email or web address] Not available 12:15:02 Brother Hypertensive disorder [place] Not available 2017 15:06:46 Brother Hypercholest erolemia [place] Not available 2017 15:08:04 Father Cerebrovascu lar accident [place] Not available 11/2017 15:06:56 Medical History Condition Response High Blood Pressure Y Breast Cancer N Thyroid Problems Y Kidney or Bladder Problems Y GI Problems N Depression Y Blood Clots N Lung Disease N Acne N Eating Disorder N Breast Problem N Anemia Y Anesthesia Complications N Headaches/Migraines N Anxiety Disorder Y Diabetes N Ovarian Cancer N Muscle, Joint, or Bone Problems N Blood Transfusions N Seizures/Epilepsy N Polyps Y Infertility N Acid Reflux (GERD) Y Cancer N Abuse/Domestic Violence N Asthma N Endometriosis N High Cholesterol Y Hepatitis N Liver Disease N Heart Disease N Pre-Eclampsia N Osteoporosis Y Gynecological History Statement/Question Response Abnormal Pap N On BCP's at Conception? N STIs/STDs N HPV Vaccine N Most Recent Mammogram Age at Menarche 14 Current Control Method Menopause Age at First Child 16 If Post Menopausal, Age at Menopause 44 Sexually Active? Y Date of Last Pap Smear 12/01/2013 Sexual Problems? Y LMP Approximate Obstetrics History GPAL:G 2 P 1 0 1 1 Type Value Multiple Births 0 Full Term 1 Induced 1 Spontaneous 0 Premature 0 Living 1 Ectopics 0 Total 2 Immunizations Vaccine Type Date Status Note Provider Nam e and Address Organization Details Recorded Time COVID-19, mRNA, LNP-S, PF, 30 mcg/0.3 mL dose 06/30/2020 completed STORM Nicolas [place] - [facility] 10/31/2020 15:17:31 Tdap 06/02/2010 completed Dorota woo, [place] - [facility] 01/16/2017 11:11:48 Past Encounters Encounter ID Performer Location Encounter Start Date Encounter Closed Date Diagnosis/Indication Diagnosis SNOMED-CT Code Diagnosis ICD10 Code Diagnosis IMO Codes [id number] [address] [place] [address] 04/26/2014 11:54:59 04/26/2014 16:54:38 Hypothyroidism 34133779 continue same Essential hypertension 41574743 continue same Hyperlipidemia 64345332 Co ntinue same Depressive disorder 27875379 with insomnia Pt is noncomplia nt with med D/c Celexa Try Trazodone hs for sleep with sleep hygiene [id number] [facility] [address] [place] [address] 08/23/2014 14:48:01 08/23/2014 16:24:58 Essential hypertension 07380939 not well controlled due to noncomplia nt continue same for now Reassess in 1 month Depressive disorder 74852981 with insomnia Stopped meds on her own Advised pt to try OTC melatonin Hyperlipidemia 91557123 Co ntinue same Hypothyroidism 13808745 co ntinue same [id number] [facility] [address] [place] [address] 08/29/2014 14:42:11 09/02/2014 09:49:00 Essential hypertension 50098745 not well controlled due to noncomplia nt continue same for now Reassess in 1 month [id number] [facility] [address] [place] [address] 09/23/2014 11:13:57 09/23/2014 12:37:36 Essential hypertension 54107185 continue same Hypothyroidism 52984320 co ntinue same Hyperlipidemia 37411332 Co ntinue same Renal fail ure syndrome 33450449 Increase fluid check BMP Screening for malignant neoplasm of colon 235896761 last colonoscop y 7 yrs ago-had polyps removed-de clined to go for repeat colonoscop y check FOB [id number] [facility] [address] [place] [address] 09/26/2014 14:48:19 09/26/2014 16:36:40 Upper respiratory infection 66450595 Supportive treatment otc prn. Rapid strep test negative. [id number] [facility] [address] [place] [address] 10/26/2014 15:46:04 10/26/2014 17:12:14 Essential hypertension 96917080 due to noncomplia nt with meds pt to take meds as prescribed bp check in 1 wk Acute bronchitis 39330921 with smoking consider CT chest if cough continues Depressive disorder 40474972 with insomnia pt to restart Trazodone hs [id number] [facility] [address] [place] [address] 11/25/2014 15:23:25 11/25/2014 17:09:42 Essential hypertension 55593184 Add Clonidine bid continue others bp check on Friday f/u in 1 wk Anxiety 82119692 Start pt on Celexa with Clonazepam Renal fail ure syndrome 56186970 with atrophic kidney on L/side and abdominal aneurysm check us kidney and renal artery [id number] MD Aleksey Valles (Adult Med) [address] [place] [address] 04/14/2015 11:51:33 04/17/2015 15:13:32 Essential hypertension 80128187 I10 pt to take Clonidine bid ( pt is taking once a day) continue others Hypothyroidism 37778754 E03.8 continue same Hyperlipidemia 01303598 E78.4 with vasculopat hy change to Atorvastat in pt to take ASA 81 mg daily counselled on smoking Anxiety 32190735 F41.1 continue Celexa with Clonazepam prn Screening for malignant neoplasm of colon 835600707 Z12.11 last colonoscop y 7 yrs ago-had polyps removed- agreed to go for repeat colonoscop y Atrophy of kidney 359845 005 N26.1 pt is seen by nephro and vascular sx -recommend ed medical mx for now [id number] MD Aleksey Valles (Adult Med) [address] [place] [address] 07/18/2015 10:30:23 07/19/2015 16:17:30 Essential hypertension 51285121 I10 pt to take Clonidine bid continue others Hyperlipidemia 94877233 E78.4 with vasculopat hy changed to Atorvastat in pt to take ASA 81 mg daily pt stopped smoking Hypothyroidism 02386222 E03.8 continue same Mixed anxi ety and depressive disorder 166651073 F34.1 with insomnia continue Trazodone hs/ Celexa Carotid atherosclerosis 293484611 I65.22 pt is having sx on L/carotid and abdominal aneurysm pt is seeing vascular surgeon Peripheral vascular disease 612197460 I73.89 with abdominal aneurysm -seeing vascular surgeon Having stress test and also going for carotid artery sx in 08/15 [id number] [facility] [address] [place] [address] 09/29/2015 10:33:36 09/29/2015 16:52:17 Mixed anxiety and depressive disorder 315943405 F34.1 with insomnia/ suicidal thoughts few days ago pt declined to go to ER -she said that she will not do anything that hurt herself or others. pt agreed to go to [facility] today pt is not taking Celexa due to headache pt to go back on Celexa ( stopped due to headache ) continue Trazodone hs f/u in 1wk [id number] [facility] [address] [place] [address] 12/13/2015 13:47:55 12/15/2015 13:26:03 Essential hypertension 23565846 I10 pt to continue Losartanhc t/ Verapamil/ Clonidine Hypothyroidism 47105618 E03.8 continue same Hyperlipidemia 66796742 E78.4 with vasculopat hy changed to Atorvastat in pt to take ASA 81 mg daily pt stopped smoking Mixed anxi ety and depressive disorder 375350251 F34.1 with insomnia pt to continue Celexa continue Trazodone hs Screening for malignant neoplasm of colon 097996598 Z12.11 last colonoscop y 7 yrs ago-had polyps removed- agreed to go for repeat colonoscop y [id number] MD [facility] (Adult Med) [address] [place] [address] 04/23/2016 11:47:17 04/24/2016 15:13:42 Essential hypertension 41708039 I10 fair control- home bp are goodpt to continue Losartanhc t/ Verapamil/ Clonidine Mixed anxi ety and depressive disorder 701940484 F34.1 with insomniapt to continue Celexa/ Trazodone hs Hyperlipidemia 83339495 E78.4 with vasculopat hychanged to Atorvastat inpt to take ASA 81 mg dailypt stopped smoking Hypothyroidism 75053475 E03.8 continue Levothyrox in 137 mcg daily Screening for malignant neoplasm of colon 847237047 Z12.11 last colonoscop y 7 yrs ago-had polyps removed- agreed to go for repeat colonoscop y [id number] MD Valeri Valleshalto (Adult Med) [address] [place] [address] 05/08/2016 12:06:15 05/08/2016 13:37:17 Essential hypertension 44333913 I10 elevated possibly due to illness - home bp are goodpt to continue Losartanhc t/ Verapamil/ Clonidinew ill reassess with f/u Acute pharyngitis 211990 003 J02.9 [id number] MD Valeri Valleshalto (Adult Med) [address] [place] [address] 06/13/2016 13:55:09 06/19/2016 09:17:56 Essential hypertension 41434258 I10 elevated due to anxiety attackpt to continue Losartanhc t/ VerapamilI ncrease Clonidine tid Acute sinusitis 48194635 J01.90 increase fluid Mixed anxi ety and depressive disorder 336429600 F34.1 with insomniapt to continue Celexa/ Trazodone hsAdvised pt to take Clonazepam during panic attack [id number] MD Valeri Valleshalto (Adult Med) [address] [place] [address] 07/01/2016 10:48:40 07/01/2016 12:15:39 Essential hypertension 12761172 I10 elevated due to anxiety attackpt to continue Losartanhc t/ Verapamilp t to continue Clonidine tid Mixed anxi ety and depressive disorder 772259575 F34.1 with insomniapt to start ProzacPt to continue Trazodone hsAdvised pt to take Clonazepam during panic attack [id number] MD Valeri Valleshalto (Adult Med) [address] [place] [address] 08/20/2016 14:56:45 08/20/2016 15:46:44 Essential hypertension 75532406 I10 elevated due to anxiety attackpt to continue Losartanhc t/ Verapamilp t to continue Clonidine tid Low back pain 371198164 M54.5 possibly musculoske letal pain urine dipstick -neg Mixed anxi ety and depressive disorder 325783226 F34.1 with insomniapt stopped Prozac on her own ( did not tolerate ) and did not tolerated celexa .Try LexaproPt to continue Trazodone hsAdvised pt to take Clonazepam during panic attack [id number] MD Valeri Valleshalto (Adult Med) [address] [place] [address] 09/16/2016 10:52:49 09/16/2016 14:08:58 Mixed anxiety and depressive disorder 278064039 F34.1 improvingp t did not tolerated celexa / prozac.con tinue LexaproPt to continue Trazodone hsAdvised pt to take Clonazepam during panic attack -use sparingly Essential hypertension 85204483 I10 pt to continue Losartanhc t/ Verapamilp t to continue Clonidine tid Hypothyroidism 19647323 E03.8 continue Levothyrox in 137 mcg daily Hyperlipidemia 49427444 E78.4 with vasculopat hychanged to Atorvastat inpt to take ASA 81 mg dailypt stopped smoking Screening for malignant neoplasm of colon 152588142 Z12.11 last colonoscop y 7 yrs ago-had polyps removed- agreed to go for repeat colonoscop y [id number] MD Aleksey Valles (Adult Med) [address] [place] [address] 01/16/2017 10:39:40 01/20/2017 09:16:40 Essential hypertension 25516195 I10 pt to continue Losartanhc t/ Verapamilp t to continue Clonidine tid Hyperlipidemia 08264616 E78.4 with vasculopat hychanged to Atorvastat inpt to take ASA 81 mg dailypt to stop smoking Hypothyroidism 11614865 E03.8 continue Levothyrox in 137 mcg daily Mixed anxi ety and depressive disorder 056779821 F34.1 stablept did not tolerated celexa / prozac.con tinue LexaproPt to continue Trazodone hsAdvised pt to take Clonazepam during panic attack -use sparingly Screening mammography 24 760764 Z12.31 pt to see Manager Merchandising for [employer] [id number] [facility] [address] [place] [address] 05/05/2017 11:40:51 05/06/2017 14:56:46 Essential hypertension 43823230 I10 pt to continue Losartanhc t/ Verapamilp t to continue Clonidine tidpt had home bp monitoring by cardio Hyperlipidemia 13317399 E78.4 with vasculopat hychanged to Atorvastat inpt to take ASA 81 mg dailypt to stop smoking Mixed anxi ety and depressive disorder 994281355 F34.1 stablept did not tolerated celexa / prozac.con tinue LexaproPt takes Trazodone hs prnAdvised pt to take Clonazepam during panic attack -use sparingly Hypothyroidism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
--- OUTSIDE RECORDS SUMMARY | 2025-04-26 17:31 | XMS_ITS | Encounter Summary ---
Author Organization [facility] Address [address] [place] [address] Phone Care Team Providers Care Order Processing Manager Name Role Phone Devonte Garza MD Primary Care Provider [phone] Patricio Howard MD Unavailable Jessica Palacios APRN, SAFETY TRAINER Unavailable Nila Richards MD Unavailable [phone] Reason for Visit * Reason Comments Medication Refill Encounter Details Date Type Department Care Team (Late st Contact Info) Description 08/04/2023 Refill [facility] - Primary Care - [place] [address] [place] [address] Devonte Garza MD [address] [place] [address] Medication Refill Social History Tobacco Use Types Packs/Day Years Used Date Smoking Tobacco: Every Day Cigarettes 0.5 45 Smokeless Tobacco: Never Alcohol Use Standard Drinks/Week Comments Not Currently 0 (1 standard drink = 0.6 oz pur e alcohol) 1x weekly; liquor PHQ-2 Answer Date Recorded Total Score - Questions 1-9 0 0311/2023 Sexually Active Control Partners Comments Yes Post-menopausal [...] * Question Answer Date of Assessment Author BP 122/72 08/06/2023 11:05 AM ARBORIST REPRESENTATIVE Stam Genna hess CMA Temp 97.4 08/06/2023 11:05 AM ARBORIST REPRESENTATIVE Stam perGenna CMA Pulse 96 08/06/2023 11:05 AM ARBORIST REPRESENTATIVE Stam perGenna CMA Resp 20 08/06/2023 11:05 AM ARBORIST REPRESENTATIVE Stam perGenna CMA SpO2 79 08/06/2023 11:05 AM ARBORIST REPRESENTATIVE Stam perGenna HIGHWAY MAINTENANCE SUPERVISOR * Question Answer Date of Assessment Author Has the patient fallen twice in the past year without injury or once in the past year with injury? No 08/06/2023 11:08 AM Genna Ashby CMA Does the patient report or d o you observe difficulty in gait or balance? No 08/06/2023 11:08 AM Genna Ashby CMA * Initial Score Answer Date of Assessment Author 0 08/06/2023 11:08 AM Genna Ashby CMA * Question Answer Date of Assessment Author Little interest or pleasure in doing things Not at all 08/06/2023 11:08 AM Genna Ashby CMA Feeling down, depressed, or hopeless Not at all 08/06/2023 11:08 AM Genna Ashby CMA * Question Answer Date of Assessment Author Has the patient fallen twice in the past year without injury or once in the past year with injury? No 08/06/2023 11:08 AM Genna Ashby CMA Does the patient report or d o you observe difficulty in gait or balance? No 08/06/2023 11:08 AM Genna Ashby CMA * Initial Score Answer Date of Assessment Author 0 08/06/2023 11:[address] Ashby [address] MAINTENANCE SUPERVISOR * Question Answer Date of Assessment Author Little interest or pleasure in doing things Not at all 08/06/2023 11:08 AM Genna Ashby CMA Feeling down, depressed, or hopeless Not at all 08/06/2023 11:08 AM Genna Ashby CMA * Over the past 2 weeks, how often have you been bothered by any of the following problems? Question Answer Date of Assessment Author Patient Health Questionnaire -2 Score 0 08/06/2023 11:08 AM Genna Ashby CMA documented as of this encounter Mental Status * Question Answer Entry Date Author BP 122/72 08/06/2023 11:05 AM ARBORIST REPRESENTATIVE Stam Genna hess CMA Temp 97.4 08/06/2023 11:05 AM ARBORIST REPRESENTATIVE Stam perGenna CMA Pulse 96 08/06/2023 11:05 AM ARBORIST REPRESENTATIVE Stam Genna hess CMA SpO2 79 08/06/2023 11:05 AM ARBORIST REPRESENTATIVE StaGenna cotter CMA * Question Answer Entry Date Author Has the patient fallen twice in the past year without injury or once in the past year with injury? No 08/06/2023 11:08 AM Genna Ashby CMA Does the patient report or d o you observe difficulty in gait or balance? No 08/06/2023 11:08 AM Genna Ashby CMA * Initial Score Answer Entry Date Author 0 08/06/2023 11:08 AM Genna Ashby CMA * Question Answer Entry Date Author Little interest or pleasure in doing things Not at all 08/06/2023 11:08 AM Genna Ashby CMA Feeling down, depressed, or hopeless Not at all 08/06/2023 11:08 AM Genna Ashby CMA documented in this encounter Miscellaneous Notes * Telephone Encounter - En Gordon RN - 08/04/2023 11:40 AM CST Pt has sasha on 08/06/23. Will address then RIST REPRESENTATIVE documented in this encounter Plan of Treatment Upcoming Encounters Date Type Department Care Team (Late st Contact Info) Description 09/13/2025 10:30 AM CDT Office Visit [facility] - [place] Care - [place] [facility] [place] [address] Devonte Garza MD [address] [place] [address] documented as of this encounter Visit Diagnoses Diagnosis Anxiety and depression Dysthymic disorder documented in this encounter Additional Health Concerns Assessment Noted Time PHQ-9 Depression Total Score: 0 05/15/20 20 9:00 AM ARBORIST REPRESENTATIVE documented as of this encounter Care Teams Order Processing Manager Relationship Specialty Start Date End Date Devonte Garza MD [address] [place] [address] PCP - General Internal Medicine 06/01/18 Patricio Howard MD [address] [place] [phone] Consulting Physician Vascular Surgery 06/01/18 Jessica Palacios, NATURAL GAS BASIS TRADER, SAFETY TRAINER [address] [place] [address] Consulting Physician Obstetrics & Gynecology 05/15/20 Nila Richards MD [address] [place] [address] DR LEVY [address] [place] [address] Consulting Physician Cardiovascular Disease - Cardiology 07/08/22 documented as of this encounter
--- OUTSIDE RECORDS SUMMARY | 2025-04-26 17:31 | XMS_ITS | Encounter Summary ---
Author Organization [facility] Address [address] [place] [address] Phone Care Team Providers Care Automotive Brake Adjuster Name Role Phone Devonte Garza MD Primary Care Provider [phone] Patricio Howard MD Unavailable Jessica Palacios APRN, TIPPLE TENDER Unavailable [phone] Nila Richards MD Unavailable [phone] Reason for Visit * Reason Onset Date Comments Cough 04/26/2025 Encounter Details Date Type Department Care Team (Late st Contact Info) Description 04/26/2025 [facility] [address] [place] [phone] Devonte Garza MD [address] [place] [address] Cough Social History Tobacco Use Types Packs/Day Years Used Date Smoking Tobacco: Every Day Cigarettes 0.5 45 Smokeless Tobacco: Never Alcohol Use Standard Drinks/Week Comments Not Currently 0 (1 standard drink = 0.6 oz pur e alcohol) 1x weekly; liquor [facility] Utilities Answer Date Recorded In the past 12 months has e electric, gas, oil, or water company threatened to shut off services in your home? Patient declined 09/23/2024 Social Connection and Isolation Panel Answer Date Recorded In a typical week, how many times do you talk on the phone with family, friends, or neighbors? Patient declined 09/23/2024 How often do you get togethe r with friends or relatives? Patient declined 09/23/2024 How often do you attend faith or mandaeism serv ices? Patient declined 09/23/2024 Do you belong to any clubs o r organizations such as faith groups, unions, fraternal or athletic groups, or [...] Total Score - Questions 1-9 0 12/2024 [facility] - Occupational [...] any time in the past 12 m [facility], were you homeless or living in a custodial (including now)? 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 Not on file Not on file Not on file documented as of this encounter Miscellaneous Notes * Telephone Encounter - ChallengerRaissa RN - 04/26/2025 4:37 PM TOOL OPERATOR SITUATION: 70 y.o. with cough congestion BACKGROUND: Patient contacting PCP office. Per chart review, [facility] 09/23/24 Symptoms started 04/22/25 ASSESSMENT: Symptom Description / Location: Sinus congestion Cough congestion-productive clear mucous Wheezing with inhaling and exhaling Denies chest pain , difficulty breathing Treatment / Response: Mucinex-chest congestion and cough with no relief. Flonase with some relief Caller denies pain. Denies fever. RECOMMENDATION: Caller agreeable to highest disposition listed: See HCP ( or PCP triage or video visit) within 4 hours. Care advice provided per triage guideline. Caller verbalized understanding. Due to office unavailability within disposition, advised for patient to be seen at prompt care or urgent care. Caller agreeable to prompt care/urgent care. Discussed utilizing [facility] to: find [facility] or [facility] - Reason for Disposition: Wheezing is present . Protocols Used: Cough - Acute [id number]-J-TA See care advice and disposition for Guideline. First positive answer recorded, all responses to prior questions were negative. If symptoms increase, change or if new symptoms develop, call your health care provider or call back. Recommendations were based on caller information and is not a diagnosis. Verified and reviewed all triage information with caller. OPERATOR * Telephone Encounter - Jaxson Majano - 04/26/2025 4:35 PM CST Symptoms: Chest Congestion, Sinus Symptoms Outcome: Transfer to clay transporter queue Reason: Wheezing (high-pitched whistling sound) The caller accepted this outcome. Caller Denied: * Any trouble breathing through the mouth OPERATOR documented in this encounter Plan of Treatment Upcoming Encounters Date Type Department Care Team (Late st Contact Info) Description 09/13/2025 10:30 AM CDT Office Visit [facility] - Primary Care - [place] [address] [place] [address] Devonte Garza MD [address] [place] [address] documented as of this encounter Visit Diagnoses Not on filedocumented in this encounter Additional Health Concerns Assessment Noted Time PHQ-9 Depression Total Score: 0 09/08/19 10:54 AM CDT documented as of this encounter Care Teams Automotive Brake Adjuster Relationship Specialty Start Date End Date Devonte Garza MD [address] [place] [address] PCP - General Internal Medicine 06/01/18 Patricio Howard MD [address] [place] [phone] Consulting Physician Vascular Surgery 06/01/18 Jessica Palacios, ELECTRIC MOTOR REPAIRER, TIPPLE TENDER [address] [place] [address] Consulting Physician Obstetrics & Gynecology 05/15/20 Nila Richards MD [address] [facility] [address] [address] Consulting Physician Cardiovascular Disease - Cardiology 07/08/22 documented as of this encounter
[2025-04-26 17:36] LABS: EDCOVIDSCREEN Negative (Negative); EDINFLUASCREEN Negative (Negative); EDINFLUBSCREEN Negative (Negative)
== END 2025-04-26 17:45 | disposition home or self-care (01) ==
PROVIDERS: Emergency Provider Nurse Practitioner Family; PCP Internal Medicine
DX: J40 Bronchitis, not specified as acute or chronic (principal); J06.9 Acute upper respiratory infection, unspecified; Z20.822 Contact with and (suspected) exposure to COVID-19; F17.210 Nicotine dependence, cigarettes, uncomplicated; I10 Essential (primary) hypertension; E78.5 Hyperlipidemia, unspecified; F41.9 Anxiety disorder, unspecified
CPT/HCPCS: 87426; 87804; 99213; G0463